=== PATIENT | female | born 1950 | race Caucasian/White ===

== ENCOUNTER 2016-08-26 12:57 | Inpatient (IN) ==
[2016-08-26] MEDS ORDERED: Naloxone 0.4 MG/ML INJ IVP PRN (16:42)
[2016-08-26] MEDS ORDERED: Nitroglycerin 0.4 MG TAB.SUBL SL PRN (16:50)
--- NOTE | 2016-08-26 16:58 | Internal Med History&Physical ---
Date of Encounter: 08/26/16 Time of Encounter: 16:54 Assessment and Plan (1) Chest pain Status: Resolved Chest pain: Admitted as observation. - cardiac diet. -ASA/BB/Statin - Echocardiogram -Pain control with morphine -We will resume home medication -If echocardiogram is normal then please consider stress test - please call cardiology before ordering stress test as they might consider cath. - this is Dr Flynn's patient and patient is alyssia keen to get cardiology on the board. When patient came to the hospital, we did not have detailed information about staying in the [facility]. Qualifiers: Chest pain type: unspecified Qualified Code(s): R07.9 - Chest pain, unspecified (2) Hypertension Status: Chronic Blood pressure is within normal limit at this time and we will resume all home medications Qualifiers: Hypertension type: essential hypertension Qualified Code(s): I10 - Essential (primary) hypertension (3) Coronary artery disease Status: Chronic Patient is known to have coronary artery disease, multiple stents, We will resume all home medication Cardiology to review tomorrow Qualifiers: Coronary Disease-Associated Artery/Lesion type: bypass graft [place] vs. transplanted heart: [place] heart Associated angina: with stable angina Qualified Code(s): I25.708 - Atherosclerosis of coronary artery bypass graft(s) , unspecified, with other forms of angina pectoris (4) DVT prophylaxis Status: Acute Heparin Medical decision making: This patient has [id number] risk of worsening in spite of being on appropriate treatment Internal Medicine - H&P: HPI Chief complaint: chest pain Admitted From: Hospital to Hospital Transfer Plans for Post Hospital Care: Home History of present illness: PCP : [facility]. Cardiology : Dr Flynn Brief PMH : HTN,Dyslipidemia, CAD, Multiple stents. HPI: Patient is ongoing chest pain for the past 3 days. The pain really got worse and last 12 hours. Patient went to [facility] where she was evaluated. Patient was chest pain-free after she was given nitroglycerin. The chest pain is recorded, localized, nonradiating, sharp in nature and gets relieved by nitroglycerin. From [facility] patient was sent to this hospital as patient's swedger is in this hospital. Reason for transfer: In view of her extensive cardiac history and a new onset of anginal chest pain, this patient needs to be observed in a facility where there is a mountain guide available 14/01. Family history: Noncontributory Past Med Surg Social Fam HX - Past Medical History Medical history: cancer, coronary artery disease, diabetes, GERD, hyperlipidemia , hypertension, myocardial infarction, other Psychiatric history: anxiety, bipolar, depression - Past Surgical History Surgical History: cholecystectomy, other - Social History Smoking Status: Former smoker Alcohol use: none Drug use: none - Family History Father Living Status: Hx Family Cardiac Disorders: Yes Internal Medicine - H&P: Meds Aspirin 81 mg PO DAILY 03/12/16 [History] Cholecalciferol (D-3) [Vitamin D] 1,000 unit PO DAILY 03/12/16 [History] Clopidogrel [Plavix] 75 mg PO DAILY 03/12/16 [History] Dicyclomine [Bentyl] 10 mg PO DAILY PRN 03/12/16 [History] Gabapentin [Neurontin] 600 mg PO BID 03/12/16 [History] Lisinopril [Zestril] 20 mg PO DAILY 03/12/16 [History] Metoprolol [Lopressor] 25 mg PO BID 03/12/16 [History] Nitroglycerin [Nitrostat] 0.4 mg SL Q5M PRN 03/12/16 [History] Ondansetron HCl [Zofran] 4 mg PO Q4-6H PRN 03/12/16 [History] Docusate Sodium [Stool Softener] 100 mg PO HS 08/26/16 [History] Duloxetine [Cymbalta] 30 mg PO HS 08/26/16 [History] Famotidine [Pepcid] 20 mg PO BID 08/26/16 [History] Metformin [Glucophage] 500 mg PO BID 08/27/16 [History] Simvastatin [Zocor] 40 mg PO HS 08/27/16 [History] Isosorbide MONOnitrate (24 HR) [Imdur] 30 mg PO DAILY #30 tab.er.24h 08/29/16 [ Rx] Metoprolol [Lopressor] 50 mg PO BID #60 tablet 08/29/16 [Rx] PredniSONE 60 mg PO DAILY #26 tablet 08/29/16 [Rx] Ranolazine [Ranexa] 500 mg PO BID #60 tab.er.12h 08/29/16 [Rx] Allergies amlodipine [From Norvasc] Allergy (Verified 03/12/16 07:22) Hives Amoxicillin Allergy (Verified 03/12/16 07:22) See Comments "pain" latex Allergy (Unverified 08/27/16 08:36) Rash Sulfa (Sulfonamide Antibiotics) Allergy (Verified 03/12/16 07:22) Itching ibuprofen [From Motrin] Adverse Reaction (Intermediate, Verified 08/26/16 20:44) bleeding patient stated cannot take motrin due to having stents placed. hydrocodone [From Vicodin] Adverse Reaction (Unverified 03/12/16 07:22) Gastrointestinal Upset morphine Adverse Reaction (Verified 08/27/16 08:36) Gastrointestinal Upset Oxycodone [From Percocet] Adverse Reaction (Verified 08/27/16 08:36) Gastrointestinal Upset propoxyphene [From Darvocet-N] Adverse Reaction (Unverified 03/12/16 07:22) Gastrointestinal Upset All Systems PM: A 10-system review of systems was performed and is negative for pertinent findings except as documented above in the HPI. - Constitutional Constitutional: no chills, no fever(s), no night sweats - EENT Eyes: no change in vision, no discharge, no pain, no photophobia Ears: no ear discharge, no ear pain, no tinnitus Nose, mouth and throat: no dysphagia, no nasal discharge, no neck pain, no sore throat - Cardiovascular Cardiovascular ROS IM: chest pain, palpitations, no diaphoresis, no dyspnea, no lightheadedness, no syncope - Respiratory Respiratory: no cough, no dyspnea, no wheezing, no excessive phlegm production - Gastrointestinal Gastrointestinal: no abdominal pain, no diarrhea, no hematemesis, no hematochezia, no melena, no nausea, no vomiting - Genitourinary Genitourinary: no change in urinary stream, no dysuria, no flank pain, no hematuria - Musculoskeletal Musculoskeletal ROS IM: no numbness, no tingling - Integumentary Integumentary IM: no rash, no unusual bruising - Neurological Neurological ROS: no confusion, no convulsions, no focal weakness, no numbness, no tingling, no tremor(s) - Hematologic/Lymphatic Hematologic/Lymphatic: no easy bruising - Constitutional Vitals: Temp Pulse Resp BP Pulse Ox 97.9 F 81 16 140/58 94 L 08/26/16 15:18 08/26/16 15:18 08/26/16 15:18 08/26/16 15:18 08/26/16 15:18 General appearance: Present: A&O X 3, pleasant, no acute distress, answers questions appropriately - Head Head exam: Present: atraumatic, normocephalic - Eye Eye exam: Present: PERRL, conjuntiva pink, sclera anicteric Pupils: Present: PERRL - Neck Neck exam general surgery: Present: supple, trachea midline. Absent: lymphadenopathy - Respiratory Respiratory exam: Present: CTAB. Absent: accessory muscle use, rales, rhonchi, wheezes - Cardiovascular Cardiovascular exam: Present: RRR, +S1, +S2. Absent: diastolic murmur, gallop, rubs, systolic murmur - GI/Abdominal GI/Abdominal exam: Present: normal bowel sounds, soft, no peritoneal signs. Absent: distended, tenderness - Extremities Exam Extremities exam: Present: warm, radial pulses palpable and symetrical. Absent : calf tenderness, cyanotic, pedal edema - Neurological Exam Neurological exam: Present: CN II-XII intact, oriented X3, no focal deficits. Absent: pronater drift, facial droop, speech deficit - Skin Skin exam: Present: dry, intact Internal Med - H&P Results - Labs CBC & Chem 7: 08/29/16 06:15 08/29/16 06:15
[2016-08-26] MEDS: *HR* Heparin 5,000 UNIT/ML VIAL SQ SCH (17:33)
[2016-08-26 18:12] LABS: Basophils # 0.1 K/mcL (0.0-0.2); Basophils % 0.6 %; Eosinophils # 0.2 K/mcL (0.0-0.6); Eosinophils % 1.7 %; Hematocrit 36.5 % (35.3-44.9); Hemoglobin 10.7 g/dL (11.5-15.4); Immature Granulocytes % 0.7 % (0-4); Lymphocytes # 1.5 K/mcL (0.6-4.6); Mean Corpuscular HGB Conc 29.3 g/dL (31.6-35.5); Mean Corpuscular Hemoglobin 26.7 pg (28.0-33.3); Mean Platelet Volume 10.9 fL (9.4-12.4); Monocytes # 0.5 K/mcL (0.0-1.3); Monocytes % 5.3 %; Neutrophils # 6.7 K/mcL (1.6-8.9); Platelet Count 274 K/mcL (140-400); Red Blood Count 4.01 M/mcL (3.82-4.97); Red Cell Distribution Width 13.8 % (11.5-14.5); Segmented Neutrophils % 74.7 %
[2016-08-26 18:36] LABS: Alanine Aminotransferase 10 Units/L (0-55); Albumin 3.2 g/dL (3.5-5.0); Alkaline Phosphatase 76 Units/L (38-126); Aspartate Amino Transferase 12 Units/L (5-34); BUN/Creatinine Ratio 19 (6-26); Bilirubin,Total 0.9 mg/dL (0.2-1.2); Blood Urea Nitrogen 14 mg/dL (7-20); Calcium 8.8 mg/dL (8.6-10.8); Carbon Dioxide 21 mEq/L (19-29); Chloride 109 mEq/L (98-109); Globulin 3.2 g/dL (2.4-3.5); Glucose 107 mg/dL (70-99); Osmolality,Calculated 293 (280-300); Potassium 3.8 mEq/L (3.5-4.5); Sodium 141 mEq/L (136-145); Total Protein 6.4 g/dL (6.0-8.3); eGFR For African Americans > 60 (> 60); eGFR For Non-African Americans > 60 (> 60)
[2016-08-26] MEDS ORDERED: Ibuprofen 600 MG TABLET PO PRN (20:30)
[2016-08-26] MEDS: Gabapentin 300 MG CAPSULE PO SCH (20:45)
[2016-08-26] MEDS ORDERED: Celecoxib 100 MG CAPSULE PO PRN (21:34)
[2016-08-26] MEDS ORDERED: Acetaminophen 325 MG TABLET PO ONE (21:36)
[2016-08-27 01:25] LABS: Chol/HDL Ratio 5.7 (0-4.9); Magnesium 1.9 mg/dL (1.6-2.6); Phosphorous 4.6 mg/dL (2.3-4.7)
[2016-08-27] MEDS: *HR* Heparin 5,000 UNIT/ML VIAL SQ SCH ×2 (06:14→16:52)
--- NOTE | 2016-08-27 10:08 | Cardiology Consult Note ---
Date of Encounter: 08/27/16 Time of Encounter: 10:48 Assessment and Plan (1) Chest pain Current Visit: Yes Status: Acute Atypical chest pain. In the setting of hypertensive urgency. Reports b/p 220-230 systolic on arrival to [facility]. Also c/o chest pain 08/14/16 after cyst removed from lumbar spine. Seen by cardiology at [facility]. Out-pt stress test recommended at that time. Troponin negative x 3. EKG shows SR with RBBB. Extensive history of CAD. Recommended pharmacologic stress test for further evaluation. NPO after midnight. She will be a 2 day stress test d/t weight. Pt agrees with plan. Qualifiers: Chest pain type: unspecified Qualified Code(s): R07.9 - Chest pain, unspecified (2) Coronary artery disease Current Visit: Yes Status: Acute S/p NV x5, CABG, and multiple stents. Last [facility] in 2012- SHILPA x2 to SVG-OM, LAD patent, SVG-PDA occluded with 100% pRCA stenosis. TTE 2014- normal EF, moderate diastolic dysfunction. Continue asa, statin, and bb. Pt states she can restart plavix today according to her spine surgeon. Qualifiers: Coronary Disease-Associated Artery/Lesion type: unspecified vessel or lesion type [place] vs. transplanted heart: [place] heart Associated angina: with stable angina Qualified Code(s): I25.118 - Atherosclerotic heart disease of [place] coronary artery with other forms of angina pectoris (3) Hypertension Current Visit: Yes Status: Acute Blood pressure improved. Reports elevated blood pressures at [facility]. 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 C/o intermittent severe leg pain since surgery, Kenny intact with redness and significant amount of edema around kenny. Primary team notified. Discussion w patient/family: The assessment and plan as outlined above was discussed with the patient and/or family members who expressed understanding and agreement. All questions were answered. Thank you for involving us in the care of your patient. Please call with any questions. History of Present Illness Consult date: 08/27/16 Requesting physician: Andrea Garibay Consult reason: Chest pain Chief complaint: Chest pain, left leg pain History of present illness: Ms. Longoria is a 66 year old female who presented with sharp, stabbing, midsternal chest pain that was not relieved with 3 SL NTG at home. She c/o severe pain radiating down her leg prior to developing chest pain. She is s/p 8 mm cyst removal from her lumbar spine on 08/13/16. Since that time she c/o intermittent "sciatic nerve" pain. She c/o 10/10 pain in her leg that lead to her having chest pain. Her blood pressure was 220-230 systolic on arrival to [facility]. She states she was given medication for her blood pressure and pain medication and her chest pain resolved. She reports being seen by cardiology after her back surgery d/t chest pain and EKG changes. She was started back on her baby aspirin and recommended to follow with her screening specialist for a stress test. Past medical history includes NV x 5, 2V CABG 2009, Multiple PCI, hypertension, and breast cancer s/p bilateral mastectomy. Past Med Surg Social Fam HX - Past Medical History Medical history: cancer, coronary artery disease, diabetes, GERD, hyperlipidemia , hypertension, myocardial infarction, other Psychiatric history: anxiety, bipolar, depression - Past Surgical History Surgical History: cholecystectomy, other - Social History Smoking Status: Former smoker Alcohol use: none Drug use: none - Family History Father Living Status: Hx Family Cardiac Disorders: Yes Medications and Allergies Aspirin 81 mg PO DAILY 03/12/16 [History] Celecoxib [Celebrex] 100 mg PO BID PRN 03/12/16 [History] Cholecalciferol (D-3) [Vitamin D] 1,000 unit PO DAILY 03/12/16 [History] Clopidogrel [Plavix] 75 mg PO DAILY 03/12/16 [History] Dicyclomine [Bentyl] 10 mg PO DAILY PRN 03/12/16 [History] Gabapentin [Neurontin] 600 mg PO BID 03/12/16 [History] Isosorbide MONOnitrate (24 HR) [Imdur] 15 mg PO DAILY 03/12/16 [History] Lisinopril [Zestril] 20 mg PO DAILY 03/12/16 [History] Metoprolol [Lopressor] 25 mg PO BID 03/12/16 [History] Nitroglycerin [Nitrostat] 0.4 mg SL Q5M PRN 03/12/16 [History] Ondansetron HCl [Zofran] 4 mg PO Q4-6H PRN 03/12/16 [History] Docusate Sodium [Stool Softener] 100 mg PO HS 08/26/16 [History] Duloxetine [Cymbalta] 30 mg PO HS 08/26/16 [History] Famotidine [Pepcid] 20 mg PO BID 08/26/16 [History] Metformin [Glucophage] 500 mg PO BID 08/27/16 [History] Allergies amlodipine [From Norvasc] Allergy (Verified 03/12/16 07:22) Hives Amoxicillin Allergy (Verified 03/12/16 07:22) See Comments "pain" latex Allergy (Unverified 08/27/16 08:36) Rash Sulfa (Sulfonamide Antibiotics) Allergy (Verified 03/12/16 07:22) Itching ibuprofen [From Motrin] Adverse Reaction (Intermediate, Verified 08/26/16 20:44) bleeding patient stated cannot take motrin due to having stents placed. hydrocodone [From Vicodin] Adverse Reaction (Unverified 03/12/16 07:22) Gastrointestinal Upset morphine Adverse Reaction (Verified 08/27/16 08:36) Gastrointestinal Upset Oxycodone [From Percocet] Adverse Reaction (Verified 08/27/16 08:36) Gastrointestinal Upset propoxyphene [From Darvocet-N] Adverse Reaction (Unverified 03/12/16 07:22) Gastrointestinal Upset All Systems Review: A 10-system review of systems was performed and is negative for pertinent findings except as documented above in the HPI. Physical Examination Vital Signs, Last 4 Hours Temp Pulse Resp BP Pulse Ox 08/27/16 07:39 98.0 F 73 20 158/76 94 L General: Conversant, No Apparent Distress, Other (Morbidly obese female) HEENT: Atraumatic, Normocephaly, Mucus Membranes Moist Neck: No JVD, Normal carotid pulses Cardiac: Reg Rate and Rhythm, Normal S1 and S2, No Murmur Lungs: Normal Breath Sounds, No Wheeze, Rales, Rhonchi Neuro: Alert and responsive, No focal deficits noted Abdomen: Soft, Non-Tender Skin: No rashes noted on visualized skin, Other (kenny intact in mid lower back, Redness and edema noted around kenny. ) Musculoskeletal: No Chest Wall Tenderness Extremities: No Clubbing, No Cyanosis, No Edema, Normal Pulses Results 08/26/16 17:55 08/26/16 17:55 Lab Results 08/26/16 08/26/16 03 17:55 17:55 17:55 WBC 8.9 Hgb 10.7 L Hct 36.5 Plt Count 274 Sodium 141 Potassium 3.8 Chloride 109 Carbon Dioxide 21 BUN 14 Creatinine 0.75 Glucose 107 H Calcium 8.8 Magnesium Total Bilirubin 0.9 AST 12 ALT 10 Alkaline Phosphatase 76 Troponin I 0.03 08/27/16 08/27/16 08/27/16 00:24 00:24 06:36 WBC Hgb Hct Plt Count Sodium Potassium Chloride Carbon Dioxide BUN Creatinine Glucose Calcium Magnesium 1.9 Total Bilirubin AST ALT Alkaline Phosphatase Troponin I 0.03 0.02 - Imaging and Cardiology Echo: report reviewed (11/2014-LVEF 60%.Normal left ventricular size and systolic function.There is evidence of moderate diastolic dysfunction of the left ventricle.Moderately enlarged left atrial size.RA no well seen.RV is not well seen, grossly there is normal function.Sclerotic aortic valve.Mild tricuspid regurgitation.Estimated RVSP was 30 mmHg.No pulmonary hypertension.The IVC is not dilated.) - EKG Interpretation EKG results cardiology: personally reviewed (SR with RBDENISE) Consult Discharge Plan - Plan Referrals: Laura Nunes, [employer] [Primary Care Provider] -
--- NOTE | 2016-08-27 14:18 | Discharge Summary ---
Date of Encounter: 08/27/16 Time of Encounter: 13:00 - Discharge Diagnosis (1) Chest pain Priority: Primary Status: Acute Comments: Patient currently denies chest pain or shortness of breath above her norm. Cardiology is on board, plan is for echocardiogram in 2 parts stress test to begin tomorrow. Qualifiers: Chest pain type: unspecified Qualified Code(s): R07.9 - Chest pain, unspecified (2) S/P lumbar spinal fusion Priority: Secondary Status: Chronic Comments: Patient is seeing Dr. Sheikh here at [facility] attempted to perform a spinal fusion on 03/12/16 however she states she was unable to do so due to her body habitus. She later went to [place] and had the procedure done on 08/13/16. She states she is due to have the kenny taken out today. She has noticed a hard and not to the right side of her incision wound. CT of lumbar spine pending. Area more consistent with induration and fluctuance. Otherwise, surgical scarring appears well approximated. No signs of acute infection noted. Awaiting CT results. Patient with severe lumbar radiculopathy and complains of severe pain and burning down her left buttock and down her left posterior thigh. Consistent with sciatica vs radiculopathy. Patient due to her allergies is unable to take any other medication besides IV Dilaudid. We will treat with pain medication, nerve medication, and steroids and assess her response. We will also bring PT on board for stretching exercises. (3) Sciatica of left side Priority: Primary Status: Acute (4) Lumbar radiculopathy Priority: Primary Status: Acute (5) Coronary artery disease Priority: Secondary Status: Chronic Qualifiers: Coronary Disease-Associated Artery/Lesion type: bypass graft [place] vs. transplanted heart: [place] heart Associated angina: with stable angina Qualified Code(s): I25.708 - Atherosclerosis of coronary artery bypass graft(s) , unspecified, with other forms of angina pectoris (6) DVT prophylaxis Priority: Primary Status: Acute Comments: Subcutaneous heparin (7) Hypertension Priority: Secondary Status: Chronic Comments: Borderline hypertensive however the patient is in severe pain, will address her pain and monitor. Will adjust medications as indicated. Qualifiers: Hypertension type: essential hypertension Qualified Code(s): I10 - Essential (primary) hypertension (8) Morbid obesity with BMI of 50.0-59.9, adult Priority: Secondary Status: Chronic - Discharge Medications Home Medications: Aspirin 81 mg PO DAILY 03/12/16 [History] Cholecalciferol (D-3) [Vitamin D] 1,000 unit PO DAILY 03/12/16 [History] Clopidogrel [Plavix] 75 mg PO DAILY 03/12/16 [History] Dicyclomine [Bentyl] 10 mg PO DAILY PRN 03/12/16 [History] Gabapentin [Neurontin] 600 mg PO BID 03/12/16 [History] Isosorbide MONOnitrate (24 HR) [Imdur] 15 mg PO DAILY 03/12/16 [History] Lisinopril [Zestril] 20 mg PO DAILY 03/12/16 [History] Metoprolol [Lopressor] 25 mg PO BID 03/12/16 [History] Nitroglycerin [Nitrostat] 0.4 mg SL Q5M PRN 03/12/16 [History] Ondansetron HCl [Zofran] 4 mg PO Q4-6H PRN 03/12/16 [History] Docusate Sodium [Stool Softener] 100 mg PO HS 08/26/16 [History] Duloxetine [Cymbalta] 30 mg PO HS 08/26/16 [History] Famotidine [Pepcid] 20 mg PO BID 08/26/16 [History] Metformin [Glucophage] 500 mg PO BID 08/27/16 [History] Allergies/Adverse Reactions: Allergies amlodipine [From Norvasc] Allergy (Verified 03/12/16 07:22) Hives Amoxicillin Allergy (Verified 03/12/16 07:22) See Comments "pain" latex Allergy (Unverified 08/27/16 08:36) Rash Sulfa (Sulfonamide Antibiotics) Allergy (Verified 03/12/16 07:22) Itching ibuprofen [From Motrin] Adverse Reaction (Intermediate, Verified 08/26/16 20:44) bleeding patient stated cannot take motrin due to having stents placed. hydrocodone [From Vicodin] Adverse Reaction (Unverified 03/12/16 07:22) Gastrointestinal Upset morphine Adverse Reaction (Verified 08/27/16 08:36) Gastrointestinal Upset Oxycodone [From Percocet] Adverse Reaction (Verified 08/27/16 08:36) Gastrointestinal Upset propoxyphene [From Darvocet-N] Adverse Reaction (Unverified 03/12/16 07:22) Gastrointestinal Upset Procedures/tests Complete & Pending: Procedures Performed prior 72 hours Category Date Time Status CT lumbar spine wo con [CT] Routine Cat Scan 08/27/16 11:45 Taken NM krista perf SPECT multi [NM] Routine Exams 08/27/16 09:20 Ordered EV echocardiogram Routine Y 08/27/16 09:21 Ordered Date of admission: 08/26/16 14:49 Primary care physician: Laura Nunes CNP Consults: 08/27/16 09:17 Consult to Cardiology [CONS] Routine Comment: Consulting Provider: Cardiology Anjelica Reason for Consult: CP- pt of Dr Flynn. Please eval and advise. Call Completed: No Discharging clinician: Soo Agosto Anticipated date of discharge: 08/27/16 - Discharge Instructions Follow Up With: Laura Nunes CNP [Primary Care Provider] - Hospital course: Ms. Longoria is a 66 year old female - Time Spent with Patient Total time spent providing and/or coordinating discharge services: - Constitutional Vitals: Temp Pulse Resp BP Pulse Ox 97.7 F 75 18 156/77 96 08/27/16 11:19 08/27/16 11:19 08/27/16 11:19 08/27/16 11:19 08/27/16 11:19 General appearance: Present: A&O X 3, pleasant, no acute distress, answers questions appropriately
[2016-08-27] MEDS: Isosorbide MONOnitrate (24 HR) 30 MG TAB.ER.24H PO SCH (14:23)
[2016-08-27] MEDS: Aspirin 81 MG TAB.CHEW PO SCH (14:23)
[2016-08-27] MEDS: Gabapentin 300 MG CAPSULE PO SCH ×3 (14:24→19:52)
[2016-08-27] MEDS: Famotidine 20 MG TABLET PO SCH ×2 (14:24→19:52)
--- NOTE | 2016-08-27 14:27 | Internal Med Progress Note ---
Date of Encounter: 08/27/16 Time of Encounter: 13:00 - Assessment and plan (1) Chest pain Current Visit: Yes Status: Acute Assessment and plan: Patient currently denies chest pain or shortness of breath above her norm. Cardiology is on board, plan is for echocardiogram in 2 parts stress test to begin tomorrow. Qualifiers: Chest pain type: unspecified Qualified Code(s): R07.9 - Chest pain, unspecified (2) S/P lumbar spinal fusion Current Visit: Yes Status: Chronic Assessment and plan: Patient has seen Dr. Sheikh here at [facility] attempted to perform a spinal fusion on 03/12/16 however she states she was unable to do so due to her body habitus. She later went to [place] and had the procedure done on 08/13/16. She states she is due to have the kenny taken out today. She has noticed a hard and not to the right side of her incision wound. CT of lumbar spine pending. Area more consistent with induration and fluctuance. Otherwise, surgical scarring appears well approximated. No signs of acute infection noted. Awaiting CT results. Patient with severe lumbar radiculopathy and complains of severe pain and burning down her left buttock and down her left posterior thigh. Consistent with sciatica vs radiculopathy. Patient due to her allergies is unable to take any other medication besides IV Dilaudid. We will treat with pain medication, nerve medication, and steroids and assess her response. We will also bring PT on board for stretching exercises. (3) Sciatica of left side Current Visit: Yes Status: Acute (4) Lumbar radiculopathy Current Visit: Yes Status: Acute (5) Coronary artery disease Current Visit: Yes Status: Chronic Qualifiers: Coronary Disease-Associated Artery/Lesion type: bypass graft [place] vs. transplanted heart: [place] heart Associated angina: with stable angina Qualified Code(s): I25.708 - Atherosclerosis of coronary artery bypass graft(s) , unspecified, with other forms of angina pectoris (6) DVT prophylaxis Current Visit: Yes Status: Acute Assessment and plan: Subcutaneous heparin (7) Hypertension Current Visit: Yes Status: Chronic Assessment and plan: Borderline hypertensive however the patient is in severe pain, will address her pain and monitor. Will adjust medications as indicated. Qualifiers: Hypertension type: essential hypertension Qualified Code(s): I10 - Essential (primary) hypertension (8) Morbid obesity with BMI of 50.0-59.9, adult Current Visit: Yes Status: Chronic - Subjective Interval history: Patient seen and examined. On examination, patient is lying on her side in bed. Patient complaining of severe burning and pain down her left buttock and into her left posterior leg. She is complaining of severe muscle spasms in that area. - Constitutional Vitals: Temp Pulse Resp BP Pulse Ox 97.7 F 75 18 156/77 96 08/27/16 11:19 08/27/16 11:19 08/27/16 11:19 08/27/16 11:19 08/27/16 11:19 General appearance: Present: A&O X 3, morbidly obese, pleasant, no acute distress, answers questions appropriately - Head Head exam: Present: atraumatic, normocephalic - Eye Eye exam: Present: PERRL, conjuntiva pink, sclera anicteric Pupils: Present: PERRL - Neck Neck exam general surgery: Present: supple, trachea midline. Absent: lymphadenopathy - Respiratory Respiratory exam: Present: decreased breath sounds. Absent: accessory muscle use, rales, respiratory distress, rhonchi, wheezes - Cardiovascular Cardiovascular exam: Present: distant heart sounds, RRR, +S1, +S2. Absent: diastolic murmur, gallop, rubs, systolic murmur - GI/Abdominal GI/Abdominal exam: Present: distended, normal bowel sounds, soft, no peritoneal signs. Absent: tenderness - Extremities Exam Extremities exam: Present: warm, radial pulses palpable and symetrical. Absent : calf tenderness, cyanotic, pedal edema - Expanded Lower Extremities Exam Upper Leg exam: Present: tenderness. Absent: full ROM - Incison Incision: Present: intact, approximated. Absent: draining Comments: induration to right side of incision - Neurological Exam Neurological exam: Present: alert, CN II-XII intact, oriented X3, no focal deficits, strengths equal and symetr throughout. Absent: pronater drift, facial droop, speech deficit - Skin Skin exam: Present: dry, intact, pallor, warm Internal Medicine: Result - Labs CBC & Chem 7: 08/26/16 17:55 08/26/16 17:55 Labs: Short CBC 08/26/16 Range/Units 17:55 WBC 8.9 (4.3-11.1) K/mcL Hgb 10.7 L (11.5-15.4) g/dL Hct 36.5 (35.3-44.9) % Plt Count 274 (140-400) K/mcL Neutrophils # 6.7 (1.6-8.9) K/mcL BMP 08/26/16 17:55 Sodium 141 Potassium 3.8 Chloride 109 Carbon Dioxide 21 BUN 14 Creatinine 0.75 Glucose 107 H Calcium 8.8 Cardiac Enzymes 08/26/16 08/27/16 08/27/16 Range/Units 17:55 00:24 06:36 Troponin I 0.03 0.03 0.02 (0-0.03) ng/mL Liver Function 08/26/16 Range/Units 17:55 Total Bilirubin 0.9 (0.2-1.2) mg/dL AST 12 (5-34) Units/L ALT 10 (0-55) Units/L Alkaline Phosphatase 76 (38-126) Units/L Albumin 3.2 L (3.5-5.0) g/dL Consult Discharge Plan - Plan Referrals: Laura Nunes, [employer] [Primary Care Provider] -
[2016-08-27] MEDS: Acetaminophen 325 MG TABLET PO PRN ×2 (14:29→22:28)
[2016-08-27] MEDS ORDERED: *HR* HYDROmorphone (PF) 1 MG/ML SYRINGE IVP PRN (14:31)
[2016-08-27] MEDS ORDERED: *HR* Promethazine 25 MG/ML VIAL IVP PRN (14:31)
[2016-08-27] MEDS ORDERED: Ondansetron 4 MG/2 ML VIAL IVP PRN (14:31)
[2016-08-27] MEDS: predniSONE 20 MG TABLET PO SCH (16:54)
[2016-08-28] MEDS: *HR* Heparin 5,000 UNIT/ML VIAL SQ SCH ×2 (04:47→17:29)
[2016-08-28 06:54] LABS: Basophils % 0.2 %; Hematocrit 33.2 % (35.3-44.9); Hemoglobin 10.5 g/dL (11.5-15.4); Immature Granulocytes % 0.6 % (0-4); Lymphocytes # 0.7 K/mcL (0.6-4.6); Lymphocytes % 7.8 %; Mean Corpuscular HGB Conc 31.6 g/dL (31.6-35.5); Mean Corpuscular Hemoglobin 27.4 pg (28.0-33.3); Mean Corpuscular Volume 86.7 fL (83.0-100.0); Mean Platelet Volume 11.2 fL (9.4-12.4); Monocytes # 0.1 K/mcL (0.0-1.3); Monocytes % 1.6 %; Neutrophils # 7.9 K/mcL (1.6-8.9); Platelet Count 306 K/mcL (140-400); Red Blood Count 3.83 M/mcL (3.82-4.97); Red Cell Distribution Width 13.5 % (11.5-14.5); Segmented Neutrophils % 89.8 %
[2016-08-28] MEDS ORDERED: Regadenoson 0.4 MG/5 ML SYRINGE IVP ONE (07:00)
[2016-08-28 07:11] LABS: BUN/Creatinine Ratio 19 (6-26); Blood Urea Nitrogen 14 mg/dL (7-20); Calcium 8.8 mg/dL (8.6-10.8); Carbon Dioxide 24 mEq/L (19-29); Chloride 105 mEq/L (98-109); Glucose 157 mg/dL (70-99); Osmolality,Calculated 290 (280-300); Potassium 4.3 mEq/L (3.5-4.5); Sodium 138 mEq/L (136-145); eGFR For African Americans > 60 (> 60); eGFR For Non-African Americans > 60 (> 60)
--- NOTE | 2016-08-28 08:45 | Cardiology Progress Note ---
Date of Encounter: 08/28/16 Time of Encounter: 07:40 Assessment and Plan (1) Chest pain Current Visit: Yes Status: Acute Recurrent chest pain. In the setting of hypertensive urgency. Reports b/p 220-230 systolic on arrival to [facility]. Also c/o chest pain 08/14/16 after cyst removed from lumbar spine. Seen by cardiology at [facility]. Out-pt stress test recommended at that time. Troponin negative x 3. EKG shows SR with RBBB. Extensive history of CAD. Recommended pharmacologic stress test for further evaluation. First part of 2-day stress test completed this morning. TTE pending. Continue asa, statin, plavix, and bb. Qualifiers: Chest pain type: unspecified Qualified Code(s): R07.9 - Chest pain, unspecified (2) Coronary artery disease Current Visit: Yes Status: Chronic S/p [place] x5, CABG 2010, and multiple stents. Last [facility] in 2012- SHILPA x2 to SVG-OM, LAD patent, SVG-PDA occluded with 100% pRCA stenosis. TTE 2014- normal EF, moderate diastolic dysfunction. Continue asa and bb. Plavix restarted. Qualifiers: Coronary Disease-Associated Artery/Lesion type: bypass graft [place] vs. transplanted heart: [place] heart Associated angina: with stable angina Qualified Code(s): I25.708 - Atherosclerosis of coronary artery bypass graft(s) , unspecified, with other forms of angina pectoris (3) Hypertension Current Visit: Yes Status: Chronic Blood pressure elevated this am d/t holding meds for test. Adjust as needed once re-evaluated. Qualifiers: Hypertension type: essential hypertension Qualified Code(s): I10 - Essential (primary) hypertension Discussion w patient/family: The assessment and plan as outlined above was discussed with the patient and/or family members who expressed understanding and agreement. All questions were answered. Thank you for involving us in the care of your patient. Please call with any questions. Subjective Principal diagnosis: chest pain, sciatica pain. Interval history: Mrs. Longoria seen in the stress lab. She is a two day stress test. SHe denies recurrent chest pain overnight. She did develop chest pain after lexiscan. Chest pain resolved with one SL NTG. Back pain and leg pain significantly improved after starting steroid. Objective Vital Signs Temp Pulse Resp BP Pulse Ox 08/28/16 03:33 97.5 F L 71 16 177/69 96 08/27/16 23:03 98.5 F 70 15 166/76 95 08/27/16 19:35 99.0 F 56 15 156/58 96 08/27/16 16:48 97.9 F 68 18 116/60 95 08/27/16 11:19 97.7 F 75 18 156/77 96 Intake and Output 08/27/16 08/28/16 08/28/16 23:59 07:59 15:59 Intake Total 600 / 600 Output Total 300 / 300 Balance 300 / 300 Intake: Oral 600 / 600 Output: Urine 300 / 300 Other: Weight 141.974 kg Patient Weight 08/28/16 23:59 Weight 141.974 kg General: Conversant, No Apparent Distress, Other (Obese female) HEENT: Atraumatic, Normocephaly, Mucus Membranes Moist Neck: No JVD, Normal carotid pulses Cardiac: Reg Rate and Rhythm, Normal S1 and S2, No Murmur Lungs: Normal Breath Sounds, No Wheeze, Rales, Rhonchi Neuro: Alert and responsive, No focal deficits noted Abdomen: Soft, Non-Tender Skin: No rashes noted on visualized skin, Other (kenny intact on back. Redness around kenny. Edema improved. ) Musculoskeletal: No Chest Wall Tenderness Extremities: No Clubbing, No Cyanosis, No Edema, Normal Pulses Results 08/28/16 05:28 08/28/16 05:28 Lab Results 08/28/16 08/28/16 05:28 05:28 WBC 8.8 Hgb 10.5 L Hct 33.2 L Plt Count 306 Sodium 138 Potassium 4.3 Chloride 105 Carbon Dioxide 24 BUN 14 Creatinine 0.75 Glucose 157 H Calcium 8.8 - Imaging and Cardiology Stress Test: pending - EKG Interpretation EKG results cardiology: other (Telemetry shows NSR with occasional PAC. Rare PVC. No ventricular arrythmias seen.) Consult Discharge Plan - Plan Referrals: Laura Nunes CNP [Primary Care Provider] - 09/03/16 1:00 pm
[2016-08-28] MEDS: Aspirin 81 MG TAB.CHEW PO SCH (09:25)
[2016-08-28] MEDS: Isosorbide MONOnitrate (24 HR) 30 MG TAB.ER.24H PO SCH (09:25)
[2016-08-28] MEDS: predniSONE 20 MG TABLET PO SCH (09:26)
[2016-08-28] MEDS: Famotidine 20 MG TABLET PO SCH ×2 (09:26→20:10)
[2016-08-28] MEDS: Gabapentin 300 MG CAPSULE PO SCH ×3 (09:26→20:11)
--- NOTE | 2016-08-28 10:09 | ECHO - Doppler Report ---
Echocardiogram Name: Amelia Longoria Date of Study: 08/27/2016 Date: 1950 Ht: 64.0 in Medical Record#: [id number] Age: 66 Wt: 314.0 lb Gender: Female BSA: 2.37 Order #: [id number] Location: [facility] Room #: [id number] Reading Physician: Krysta Bee DO Primer Boxer: Geeta Vergara RDCS Ordering Physician: Soo Agosto CNP Primary Physician: Laura Nunes CNP Indications: Chest pain, Fatigue Impressions: LVEF 55%. Normal left ventricular size and systolic function. Mild concentric hypertrophy of the left ventricle. There is evidence of moderate diastolic dysfunction of the left ventricle. Normal right ventricular size and function. Sclerotic aortic valve. No pulmonary hypertension. Left Ventricular Wall Motion: Rest Echo Findings All wall segments showed normal motion. Findings: Study Quality * Technically sub-optimal due to body habitus. ECG Findings * Normal sinus rhythm. Left Atrium * Mildly dilated left atrium. Mitral Valve * Normal mitral valve structure. * Mild mitral annular calcification * No mitral stenosis. * Trace mitral regurgitation. Aortic Valve * No aortic regurgitation. * Aortic valve not well visualized. * No aortic stenosis. * Sclerotic aortic valve. Tricuspid Valve * Tricuspid valve not well visualized. * No tricuspid regurgitation. * Estimated RA pressure is 3 mmHg. * Estimated RVSP is 24 mmHg. * No pulmonary hypertension. Pulmonic Valve * Pulmonic valve is not well visualized. * No pulmonic stenosis. * No pulmonic regurgitation. Pulmonary Artery * Pulmonary artery not well visualized. Right Ventricle * Normal right ventricular structure and function. Right Atrium * Normal right atrial size. Left Ventricle * LVEF 55%. * Mild concentric left ventricular hypertrophy. * Moderate left ventricular diastolic dysfunction. Interatrial Septum * No evidence of PFO by color Doppler. IVC * The IVC is not dilated. Pericardium * There is no pericardial effusion present. Aorta * Normally sized aortic root. History Hypertension Diabetes Hypercholesteremia Family History of CAD History of CAD/PTCA Myocardial Infarction Coronary Artery Bypass Graft 12/03/2014 a Previous Echo was performed. Measurements: BP: 156/ 58 2D Normal Values IVSd: 1.31 cm 0.6 - 1.0 cm LVIDd: 4.40 cm 3.7 - 5.6 cm LVPWd: 1.30 cm 0.6 - 1.1 cm LVIDs: 2.80 cm 1.5 - 3.6 cm AO: 2.90 cm < 4.0 cm LA: 3.90 cm 2.0 - 4.0cm %FS: 45.20 cm >25 % LVOT Diam: 2.00 cm LA volume: 53 Mitral Valve Peak E:1.20 m/sec Peak A:1.12 m/sec E/A Ratio:1.1 Peak E' Lat Juni:9.57 cm/s Peak E' Med Juni:6.53 cm/s E/E' Lat Ratio:12.5 E/E' Med Ratio:18.4 LVOT Peak Juni:1.14 m/sec Mean Juni:.79 m/sec Peak Grad:5.00 mmHg Mean Grad:2.67 mmHg Aortic Valve Peak Juni:2.19 m/sec Mean Juni:1.35 m/sec Peak Grad:19.00 mmHg Mean Grad:8.33 mmHg Valve Area:2.11 cm2 Tricuspid Valve TV Regurg Peak Grad: 21.00mmHg TV Regurg Peak Juni: 2.30m/sec Updated by Krysta Bee on 08/28/2016 10:01:39 AM electronically signed on 08/28/2016 10:02:05 AM with status of Final Wall Motion Cho: 1=Normal, 2=Hypokinesis, 3=Akinesis, 4=Dyskinesis, 5=Aneurysmal, 6=Hyperkinetic, X=Not Visualized (Blank)=Missing
[2016-08-28] MEDS: Acetaminophen 325 MG TABLET PO PRN ×2 (11:12→20:10)
--- NOTE | 2016-08-28 12:40 | Event Note ---
Date of Encounter: 08/28/16 Time of Encounter: 12:30 Spoke with Soo Agosto who is taking care of the patient on the hospitalist service. I would recommend the patient follow up with her spine surgeon in [place] for removal of kenny. No urgency or indication to remove kenny during this visit. If the patient is persistent about removal of kenny during this visit, I would recommend consultation with Dr. Sheikh for review of CT and recommendations.
--- NOTE | 2016-08-28 15:04 | Internal Med Progress Note ---
Date of Encounter: 08/28/16 Time of Encounter: 14:00 - Assessment and plan (1) Chest pain Current Visit: Yes Status: Acute Assessment and plan: Patient currently denies chest pain or shortness of breath above her norm. Cardiology is on board, plan is for 2 part stress test with second part tomorrow. Echocardiogram unremarkable with ejection fraction 55% and moderate diastolic dysfunction. Patient's euvolemic on examination. Possible discharge if negative and pending clinical outcomes tomorrow. Echocardiogram impressions: LVEF 55%. Normal left ventricular size and systolic function. Mild concentric hypertrophy of the left ventricle. There is evidence of moderate diastolic dysfunction of the left ventricle. Normal right ventricular size and function. Sclerotic aortic valve. No pulmonary hypertension. Qualifiers: Chest pain type: unspecified Qualified Code(s): R07.9 - Chest pain, unspecified (2) S/P lumbar spinal fusion Current Visit: Yes Status: Chronic Assessment and plan: Per Dr Hudson at [facility] on 08/13/16. Patient stating she had an appointment with her primary care provider Laura Nunes whom I have emailed for improved continuity. Ideally, would prefer patient go back to her original surgeon however she states that she has been told that she is not supposed to drive all the way back up to [place] to have the kenny removed, will verify with her primary care provider. Surgery onboard. 08/27/[address] Sheikh here at [facility] attempted to perform a spinal fusion on 03/12/16 however she states she was unable to do so due to her body habitus. She later went to [facility] and had the procedure done on 08/13/16. She states she is due to have the kenny taken out today. She has noticed a hard and not to the right side of her incision wound. CT of lumbar spine pending. Area more consistent with induration and fluctuance. Otherwise, surgical scarring appears well approximated. No signs of acute infection noted. Awaiting CT results. Patient with severe lumbar radiculopathy and complains of severe pain and burning down her left buttock and down her left posterior thigh. Consistent with sciatica vs radiculopathy. Patient due to her allergies is unable to take any other medication besides IV Dilaudid. We will treat with pain medication, nerve medication, and steroids and assess her response. We will also bring PT on board for stretching exercises. (3) Sciatica of left side Current Visit: Yes Status: Acute Assessment and plan: much improved with steroids- has not required any pain medication besides tylenol today. (4) Lumbar radiculopathy Current Visit: Yes Status: Acute (5) Coronary artery disease Current Visit: Yes Status: Chronic Qualifiers: Coronary Disease-Associated Artery/Lesion type: bypass graft [place] vs. transplanted heart: [place] heart Associated angina: with stable angina Qualified Code(s): I25.708 - Atherosclerosis of coronary artery bypass graft(s) , unspecified, with other forms of angina pectoris (6) DVT prophylaxis Current Visit: Yes Status: Acute Assessment and plan: Subcutaneous heparin (7) Hypertension Current Visit: Yes Status: Chronic Assessment and plan: Borderline hypertensive at times but normotensive at this time will continue to address her pain and monitor. Will adjust medications as indicated. Qualifiers: Hypertension type: essential hypertension Qualified Code(s): I10 - Essential (primary) hypertension (8) Morbid obesity with BMI of 50.0-59.9, adult Current Visit: Yes Status: Chronic - Subjective Interval history: Patient seen and examined. On examination, patient is sitting upright on the side of her bed. Patient is alert and interactive and states that last night was the best night's sleep she has had in a while. She states that approximately 2 hours after taking her steroids that her pain abated greatly. Patient stating she is feeling under percent better today. She is endorsing a normal appetite. - Constitutional Vitals: Temp Pulse Resp BP Pulse Ox 98.0 F 73 16 149/71 96 08/28/16 10:55 08/28/16 10:55 08/28/16 10:55 08/28/16 10:55 08/28/16 10:55 General appearance: Present: A&O X 3, morbidly obese, pleasant, no acute distress, answers questions appropriately - Head Head exam: Present: atraumatic, normocephalic - Eye Eye exam: Present: PERRL, conjuntiva pink, sclera anicteric Pupils: Present: PERRL - Neck Neck exam general surgery: Present: supple, trachea midline. Absent: lymphadenopathy - Respiratory Respiratory exam: Present: CTAB. Absent: accessory muscle use, rales, respiratory distress, rhonchi, wheezes - Cardiovascular Cardiovascular exam: Present: RRR, +S1, +S2. Absent: diastolic murmur, gallop, rubs, systolic murmur - GI/Abdominal GI/Abdominal exam: Present: normal bowel sounds, soft, no peritoneal signs. Absent: distended, tenderness - Extremities Exam Extremities exam: Present: warm, radial pulses palpable and symetrical. Absent : calf tenderness, cyanotic, pedal edema - Incison Incision: Present: clean and dry, erythema (mild), approximated. Absent: draining - Back Exam Back exam: Present: vertebral tenderness (incision) - Neurological Exam Neurological exam: Present: alert, CN II-XII intact, oriented X3, no focal deficits, strengths equal and symetr throughout. Absent: pronater drift, facial droop, speech deficit - Skin Skin exam: Present: dry, intact, normal color, warm Internal Medicine: Result - Labs CBC & Chem 7: 08/28/16 05:28 08/28/16 05:28 Labs: Short CBC 08/28/16 Range/Units 05:28 WBC 8.8 (4.3-11.1) K/mcL Hgb 10.5 L (11.5-15.4) g/dL Hct 33.2 L (35.3-44.9) % Plt Count 306 (140-400) K/mcL Neutrophils # 7.9 (1.6-8.9) K/mcL BMP 08/28/16 05:28 Sodium 138 Potassium 4.3 Chloride 105 Carbon Dioxide 24 BUN 14 Creatinine 0.75 Glucose 157 H Calcium 8.8 - Impressions Impressions Lumbar Spine CT 08/27/16 11:45 IMPRESSION: 1. Postsurgical changes are noted from an anterior and posterior L4-S1 fusion without evidence of instrumentation loosening or failure. Fluid is noted in the L4-L5 laminectomy beds, likely related to a postoperative seroma, however, superimposed infection cannot entirely be excluded. If there is strong clinical concern, an MRI of the lumbar spine without and with intravenous contrast could be performed for further evaluation. 2. Mild central spinal canal narrowing at L1-L2. 3. No evidence of an acute fracture. 4. Atherosclerotic disease. 5. 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 D/ / 08/27/2016 14:48:31 Pedro Luque MD / vinay Interpreting Provider: Pedro Luque MD Consult Discharge Plan - Plan Referrals: Laura Nunes CNP [Primary Care Provider] - 09/03/16 1:00 pm
[2016-08-29] MEDS: *HR* Heparin 5,000 UNIT/ML VIAL SQ SCH (06:30)
[2016-08-29 07:27] LABS: BUN/Creatinine Ratio 24 (6-26); Blood Urea Nitrogen 18 mg/dL (7-20); Calcium 8.8 mg/dL (8.6-10.8); Carbon Dioxide 23 mEq/L (19-29); Chloride 109 mEq/L (98-109); Glucose 113 mg/dL (70-99); Osmolality,Calculated 297 (280-300); Potassium 3.7 mEq/L (3.5-4.5); Sodium 142 mEq/L (136-145); eGFR For African Americans > 60 (> 60); eGFR For Non-African Americans > 60 (> 60)
[2016-08-29 07:30] LABS: Basophils % 0.3 %; Eosinophils % 0.4 %; Hematocrit 32.5 % (35.3-44.9); Hemoglobin 10.1 g/dL (11.5-15.4); Immature Granulocytes % 1.1 % (0-4); Lymphocytes # 1.5 K/mcL (0.6-4.6); Lymphocytes % 12.9 %; Mean Corpuscular HGB Conc 31.1 g/dL (31.6-35.5); Mean Corpuscular Hemoglobin 26.9 pg (28.0-33.3); Mean Corpuscular Volume 86.4 fL (83.0-100.0); Mean Platelet Volume 10.9 fL (9.4-12.4); Monocytes # 0.6 K/mcL (0.0-1.3); Monocytes % 5.1 %; Neutrophils # 9.2 K/mcL (1.6-8.9); Platelet Count 309 K/mcL (140-400); Red Blood Count 3.76 M/mcL (3.82-4.97); Red Cell Distribution Width 13.8 % (11.5-14.5); Segmented Neutrophils % 80.2 %
[2016-08-29 07:37] LABS: INR 1.1; Prothrombin Time 11.9 Seconds (9.4-12.1)
--- NOTE | 2016-08-29 08:18 | Cardiology Progress Note ---
Date of Encounter: 08/29/16 Time of Encounter: 08:13 Assessment and Plan (1) Chest pain Current Visit: Yes Status: Acute Presented with recurrent chest pain in the setting of hypertensive urgency. Reports b/p 220-230 systolic on arrival to [facility]. Also c/o chest pain 08/14/16 after cyst removed from lumbar spine. Seen by cardiology at [facility]. Out-pt stress test recommended at that time. Troponin negative x 3. EKG shows SR with RBBB. Extensive history of CAD. Pharmacologic stress test recommended for further evaluation. Stress test to be completed today. TTE-Echocardiogram impressions: LVEF 55%. Normal left ventricular size and systolic function. Mild concentric hypertrophy of the left ventricle. There is evidence of moderate diastolic dysfunction of the left ventricle. Normal right ventricular size and function. Sclerotic aortic valve. No pulmonary hypertension. Continue asa, statin, plavix, and bb. Imdur increased. Qualifiers: Chest pain type: unspecified Qualified Code(s): R07.9 - Chest pain, unspecified (2) Coronary artery disease Current Visit: Yes Status: Chronic S/p [place] x5, CABG 2010, and multiple stents. Last [facility] in 2012- SHILPA x2 to SVG-OM, LAD patent, SVG-PDA occluded with 100% pRCA stenosis. TTE 2015- normal EF, moderate diastolic dysfunction. Continue asa, bb, and statin. Plavix restarted. Imdur increased. Qualifiers: Coronary Disease-Associated Artery/Lesion type: bypass graft [place] vs. transplanted heart: [place] heart Associated angina: with stable angina Qualified Code(s): I25.708 - Atherosclerosis of coronary artery bypass graft(s) , unspecified, with other forms of angina pectoris (3) Hypertension Current Visit: Yes Status: Chronic Blood pressure continues to be elevated despite restarting medications yesterday. Increase Zestril. Qualifiers: Hypertension type: essential hypertension Qualified Code(s): I10 - Essential (primary) hypertension Discussion w patient/family: The assessment and plan as outlined above was discussed with the patient and/or family members who expressed understanding and agreement. All questions were answered. Thank you for involving us in the care of your patient. Please call with any questions. Subjective Principal diagnosis: chest pain, sciatica pain. Interval history: Mrs. Longoria seen in the stress lab again today for second part of her stress test. She denies recurrent chest pain overnight. Objective Vital Signs, Last 4 Hours Temp Pulse Resp BP Pulse Ox 08/29/16 07:30 98.0 F 65 24 177/74 97 General: Conversant, No Apparent Distress HEENT: Atraumatic, Normocephaly, Mucus Membranes Moist Neck: No JVD, Normal carotid pulses Cardiac: Reg Rate and Rhythm, Normal S1 and S2, No Murmur Lungs: Normal Breath Sounds, No Wheeze, Rales, Rhonchi Neuro: Alert and responsive, No focal deficits noted Abdomen: Soft, Non-Tender Skin: No rashes noted on visualized skin, Other (Kandi intact on lower back. ) Musculoskeletal: No Chest Wall Tenderness Extremities: No Clubbing, No Cyanosis, No Edema, Normal Pulses Results 08/29/16 06:15 08/29/16 06:15 Lab Results 08/29/16 08/29/16 08/29/16 06:15 06:15 06:15 WBC 11.4 H Hgb 10.1 L Hct 32.5 L Plt Count 309 INR 1.1 Sodium 142 Potassium 3.7 Chloride 109 Carbon Dioxide 23 BUN 18 Creatinine 0.74 Glucose 113 H Calcium 8.8 - Imaging and Cardiology Echo: report reviewed (Echocardiogram impressions: LVEF 55%. Normal left ventricular size and systolic function. Mild concentric hypertrophy of the left ventricle. There is evidence of moderate diastolic dysfunction of the left ventricle. Normal right ventricular size and function. Sclerotic aortic valve. No pulmonary hypertension.) - EKG Interpretation EKG results cardiology: personally reviewed (SR with RBBB) Consult Discharge Plan - Plan Referrals: Laura Nunes CNP [Primary Care Provider] - 09/03/16 1:00 pm
[2016-08-29] MEDS ORDERED: Isosorbide MONOnitrate (24 HR) 30 MG TAB.ER.24H PO SCH (09:00)
[2016-08-29] MEDS: Famotidine 20 MG TABLET PO SCH (09:58)
[2016-08-29] MEDS: Acetaminophen 325 MG TABLET PO PRN (09:58)
[2016-08-29] MEDS: Gabapentin 300 MG CAPSULE PO SCH (09:58)
[2016-08-29] MEDS: Aspirin 81 MG TAB.CHEW PO SCH (09:58)
[2016-08-29] MEDS: predniSONE 20 MG TABLET PO SCH (09:59)
[2016-08-29 10:59] VITALS: BP 165/64
--- NOTE | 2016-08-29 11:15 | Nuclear Medicine Stress Report ---
Regadenoson Nuclear 2 day Name: Amelia Longoria Date of Study: 08/28/2016 Date: 1950 Ht: 65.0 in Medical Record#: [id number] Age: 66 Wt: 313.0 lb Gender: Female Order #: [id number] Location: [facility] Room: [facility] Supervising Provider: Carlos Zaman CNP Reading Physician: Krysta Bee DO Ordering Physician: Soo Agosto CNP Primary Care Physician: Laura Nunes CNP Stress Technologist: Claudia Soler FINANCIAL AIDS OFFICER, CCT Indications: Chest Pain, Coronary Artery Disease Impression: Mild reversible ischemia of the basal and mid inferior and inferolateral malhotra. Pharmacologic ECG was non diagnostic for ischemia. Patient had chest tightness with pharmacologic stress. Gated EF = >70%. Findings communicated to ordering clinician. History: Hypertension Diabetes Hypercholesteremia Prior PCI History of Coronary Artery Bypass Surgery Stress Test Summary: Stress Test Type: Pharmacologic Regadenoson 0.4mg/5ml given IV Baseline Information: Initial Heart Rate: 75 Blood Pressure: 160/90 Stress Information: Test Terminated Due to (primary): As per protocol Maximum Blood Pressure: 190/90 Maximum Heart Rate: 94 Percent Maximum Heart Rate Achieved: 61 Double Product: 41447 METS Reached: 1 Symptoms: Chest pain, Shortness of breath Nuclear Summary: SPECT myocardial perfusion imaging using Tc99m Sestamibi given intravenously was performed at rest and following cardiac stress testing. The resting images were obtained following initial dose of 34 mCi. Following stress an additional dose of 32 mCi was given at peak exercise or 30 seconds post regadenoson infusion. Medication Given: Time Medication Dose Units Route 07:55 Nitroglycerine SL Findings: Stress Note * Resting ECG demonstrated normal sinus rhythm with RBBB and nonspecific ST changes. * Pharmacologic stress ECG is non diagnostic for ischemia due to baseline non-specific ST and T changes. * Patient had chest tightness with pharmacologic stress. * There is a PVC during stress portion. Infrequent PACs during recovery. Hemodynamic responses * Normal hemodynamic responses to pharmacologic stress. Study Quality * Study quality was fair (2-day study due to body habitus). Gated EF > 70% * Gated EF > 70%. Left Ventricle * The left ventricle is not dilated. TID * No evidence of transient ischemic dilatation. Lung Uptake * There is no evidence of increase lung uptake. NORMALS * Normal wall motion. PERFUSION * Resting perfusion is normal. * During stress, there is a small sized, mild-moderate intensity defect involving the basal to mid inferior and inferolateral malhotra. * Other stress perfusion segments are normal. Updated by Krysta Bee on 08/29/2016 11:07:32 AM electronically signed on 08/29/2016 11:10:04 AM with status of Final
--- NOTE | 2016-08-29 12:08 | Event Note ---
Date of Encounter: 08/29/16 Time of Encounter: 12:00 - Cardiology Event Note Stress test shows mild reversible ischemia in the basal, mid inferior and inferior-lateral malhotra. EF normal. TTE shows normal EF. Moderate diastolic dysfunction. Stress test correlates with pt's known CAD. LHC in 2012 at [facility] showed occluded SVG to PDA and pRCA 100% stenosis. Will optimize medical management. Recommend increasing imdur to 60 mg daily and lisinopril back to 20 mg daily. SL NTG PRN. Plavix restarted on admission. F/U scheduled with Dr. Flynn 09/22/16. Cardiology will sign off. Call with questions. Plan discussed with Dr. Diggs.
[2016-08-29] MEDS ORDERED: Ranolazine 500 MG TAB.ER.12H PO SCH (12:15)
--- NOTE | 2016-08-29 15:36 | Discharge Summary ---
Date of Encounter: 08/29/16 Time of Encounter: 14:00 - Discharge Diagnosis (1) Chest pain Priority: Primary Status: Resolved Comments: Patient denied chest pain or shortness of breath throughout this admission. Echocardiogram unremarkable however stress test abnormal. Cardiology brought on board who recommended medical management Qualifiers: Chest pain type: unspecified Qualified Code(s): R07.9 - Chest pain, unspecified (2) S/P lumbar spinal fusion Priority: Secondary Status: Chronic Comments: Per Dr Briones at [place] on 08/13/16. Spoke to this provider and she will follow-up for possible staple removal on the day after discharge on 08/30/16. (3) Sciatica of left side Priority: Primary Status: Resolved (4) Lumbar radiculopathy Priority: Primary Status: Resolved (5) Coronary artery disease Priority: Secondary Status: Chronic Qualifiers: Coronary Disease-Associated Artery/Lesion type: bypass graft [place] vs. transplanted heart: [place] heart Associated angina: with stable angina Qualified Code(s): I25.708 - Atherosclerosis of coronary artery bypass graft(s) , unspecified, with other forms of angina pectoris (6) DVT prophylaxis Priority: Primary Status: Acute Comments: Subcutaneous heparin while admitted (7) Hypertension Priority: Secondary Status: Chronic Comments: Borderline hypertensive at times- engineered dosage increased per cardiology as well as her Zestril dosage. Plavix was also added. Recommend daily blood pressure checks at home, and following up outpatient. Qualifiers: Hypertension type: essential hypertension Qualified Code(s): I10 - Essential (primary) hypertension (8) Morbid obesity with BMI of 50.0-59.9, adult Priority: Secondary Status: Chronic - Discharge Medications Prescriptions: Isosorbide MONOnitrate (24 HR) [Imdur] 30 mg PO DAILY #30 tab.er.24h Metoprolol [Lopressor] 50 mg PO BID #60 tablet PredniSONE 60 mg PO DAILY #26 tablet Ranolazine [Ranexa] 500 mg PO BID #60 tab.er.12h Home Medications: Aspirin 81 mg PO DAILY 03/12/16 [History] Cholecalciferol (D-3) [Vitamin D] 1,000 unit PO DAILY 03/12/16 [History] Clopidogrel [Plavix] 75 mg PO DAILY 03/12/16 [History] Dicyclomine [Bentyl] 10 mg PO DAILY PRN 03/12/16 [History] Gabapentin [Neurontin] 600 mg PO BID 03/12/16 [History] Lisinopril [Zestril] 20 mg PO DAILY 03/12/16 [History] Metoprolol [Lopressor] 25 mg PO BID 03/12/16 [History] Nitroglycerin [Nitrostat] 0.4 mg SL Q5M PRN 03/12/16 [History] Ondansetron HCl [Zofran] 4 mg PO Q4-6H PRN 03/12/16 [History] Docusate Sodium [Stool Softener] 100 mg PO HS 08/26/16 [History] Duloxetine [Cymbalta] 30 mg PO HS 08/26/16 [History] Famotidine [Pepcid] 20 mg PO BID 08/26/16 [History] Metformin [Glucophage] 500 mg PO BID 08/27/16 [History] Simvastatin [Zocor] 40 mg PO HS 08/27/16 [History] Isosorbide MONOnitrate (24 HR) [Imdur] 30 mg PO DAILY #30 tab.er.24h 08/29/16 [ Rx] Metoprolol [Lopressor] 50 mg PO BID #60 tablet 08/29/16 [Rx] PredniSONE 60 mg PO DAILY #26 tablet 08/29/16 [Rx] Ranolazine [Ranexa] 500 mg PO BID #60 tab.er.12h 08/29/16 [Rx] Allergies/Adverse Reactions: Allergies amlodipine [From Norvasc] Allergy (Verified 03/12/16 07:22) Hives Amoxicillin Allergy (Verified 03/12/16 07:22) See Comments "pain" latex Allergy (Unverified 08/27/16 08:36) Rash Sulfa (Sulfonamide Antibiotics) Allergy (Verified 03/12/16 07:22) Itching ibuprofen [From Motrin] Adverse Reaction (Intermediate, Verified 08/26/16 20:44) bleeding patient stated cannot take motrin due to having stents placed. hydrocodone [From Vicodin] Adverse Reaction (Unverified 03/12/16 07:22) Gastrointestinal Upset morphine Adverse Reaction (Verified 08/27/16 08:36) Gastrointestinal Upset Oxycodone [From Percocet] Adverse Reaction (Verified 08/27/16 08:36) Gastrointestinal Upset propoxyphene [From Darvocet-N] Adverse Reaction (Unverified 03/12/16 07:22) Gastrointestinal Upset Procedures/tests Complete & Pending: Procedures Performed prior 72 hours Category Date Time Status CT lumbar spine wo con [CT] Routine Cat Scan 08/27/16 11:45 Completed NM krista perf SPECT multi [NM] Routine Exams 08/27/16 09:20 Taken EV echocardiogram Routine Y 08/27/16 09:21 Completed SP pharm nuclear stress Routine Y 08/28/16 08:00 Completed Date of admission: 08/28/16 15:21 Primary care physician: Laura Nunes CNP Consults: 08/27/16 09:17 Consult to Cardiology [CONS] Routine Comment: Consulting Provider: [facility] [place] Reason for Consult: CP- pt of Dr Flynn. Please eval and advise. Call Completed: No 08/27/16 14:31 Consult to Physical Therapy [CONS] Routine Comment: left sciatica, please eval and stretch 08/28/16 08:34 Consult to Surgery [CONS] Routine Consulting Provider: Vicky Gunn Reason for Consult: s/p L4-S1 fusion at [facility] (unable to perform here 2/2 BMI) on 08/13/16. Due to have kenny removed. L CT with seroma vs infection- please eval and advise. Spoke to Willa Reid CNP Time Notified: 08:35 Call Completed: Yes Discharging clinician: Soo Agosto Anticipated date of discharge: 08/29/16 - Patient Status Disposition: Home, Self-Care Condition: Fair Functional capacity at discharge: independent ambulation Overall status at discharge: patient is back to baseline - Discharge Instructions Follow Up With: Laura Nunes CNP [Primary Care Provider] - 09/03/16 1:00 pm Lee Briones MD [Non-Partnered Physician] - 08/30/16 2:00 pm (Staple removal at [place]) Additional Instructions: Follow-up with primary care provider and surgeon as scheduled. Follow-up with cardiology in 1-2 weeks - Diet and Activity Activity: increase activity as tolerated Diet: diabetic diet, low fat, low cholesterol, low salt diet Hospital course: Ms. Longoria is a 66 year old female with past medical history of CAD status post multiple stents, hypertension, hyperlipidemia, former tobacco abuse, bipolar disorder, morbid obesity with BMI of 54. Patient presented to the emergency department chief complaint chest pain 3 days. The pain had worsened over the 12 hours prior to presentation prompting her presentation at [facility]. Her chest pain resolved after nitroglycerin and was reported as localized, nonradiating, sharp in nature. Patient was sent [facility] as her primary rail technician is here. Workup in the emergency department unremarkable. Patient was admitted to the hospitalist service for further evaluation and management. Patient is status post spinal fusion L4-S1 per Dr Briones at [place] on 08/13/16. She was due to have her kenny taken out during this visit. She also noted a rather sizable not to the site of her incision site lumbar CT was obtained which was consistent with a postoperative seroma. There is no concern for an infection. Patient stating she would rather her primary care provider take the sutures out however spoke to her primary care provider who recommended that the patient return to the primary surgeon for staple removal. I also consulted surgery well this patient was admitted and they too stated that the patient will need to follow-up with her primary surgeon to have kenny removed. Patient denied chest pain or shortness of breath throughout this admission. Patient's biggest complaint during this admission was lumbar radiculopathy and sciatica on her right side. Pain was abated with prednisone and she was sent home on a prednisone taper. Regarding her chest pain, she had a 2 day stress test that had a small area of abnormality and reversible ischemia so cardiology was brought on board. Cardiology recommended medical management. Her Imdur dosage was increased- she was initially set to take 60 mg daily however her original dose was noted to be 15 mg that she was increased to 30 mg daily. Her metoprolol dosage was also increased and she was started on Ranexa. Patient was euvolemic on examination throughout this admission, echocardiogram is unremarkable with ejection fraction 55% and moderate diastolic dysfunction. An appointment was made with her [place] surgeon on the day after discharge (08/30/16). She was discharged home in stable condition with close outpatient follow-up recommended. ITS Impressions Lumbar Spine CT 08/27/16 11:45 IMPRESSION: 1. Postsurgical changes are noted from an anterior and posterior L4-S1 fusion without evidence of instrumentation loosening or failure. Fluid is noted in the L4-L5 laminectomy beds, likely related to a postoperative seroma, however, superimposed infection cannot entirely be excluded. If there is strong clinical concern, an MRI of the lumbar spine without and with intravenous contrast could be performed for further evaluation. 2. Mild central spinal canal narrowing at L1-L2. 3. No evidence of an acute fracture. 4. Atherosclerotic disease. 5. 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 D/ / 08/27/2016 14:48:31 Pedro Luque MD / [facility] Interpreting Provider: Pedro Luque MD Echocardiogram impressions: LVEF 55%. Normal left ventricular size and systolic function. Mild concentric hypertrophy of the left ventricle. There is evidence of moderate diastolic dysfunction of the left ventricle. Normal right ventricular size and function. Sclerotic aortic valve. No pulmonary hypertension. 2Day nuclear stress test impression: Mild reversible ischemia at the basal and mid inferior and inferolateral malhotra. Pharmacologic ECG is nondiagnostic for ischemia. Patient had chest tightness with pharmacologic stress. Gated ejection fraction greater than 70%. - Time Spent with Patient Total time spent providing and/or coordinating discharge services: - Constitutional Vitals: Temp Pulse Resp BP Pulse Ox 97.9 F 76 16 165/64 95 08/29/16 10:56 08/29/16 10:56 08/29/16 10:56 08/29/16 10:56 08/29/16 10:56 General appearance: Present: A&O X 3, morbidly obese, pleasant, no acute distress, answers questions appropriately - Head Head exam: Present: atraumatic, normocephalic - Eye Eye exam: Present: PERRL, conjuntiva pink, sclera anicteric Pupils: Present: PERRL - Neck Neck exam general surgery: Present: supple, trachea midline. Absent: lymphadenopathy - Respiratory Respiratory exam: Present: CTAB. Absent: accessory muscle use, rales, respiratory distress, rhonchi, wheezes - Cardiovascular Cardiovascular exam: Present: RRR, +S1, +S2. Absent: diastolic murmur, gallop, rubs, systolic murmur - GI/Abdominal GI/Abdominal exam: Present: distended, normal bowel sounds, soft, no peritoneal signs. Absent: tenderness - Extremities Exam Extremities exam: Present: warm, radial pulses palpable and symetrical. Absent : calf tenderness, cyanotic, pedal edema - Incison Incision: Present: clean and dry, approximated. Absent: purulent - Neurological Exam Neurological exam: Present: alert, CN II-XII intact, oriented X3, no focal deficits, strengths equal and symetr throughout. Absent: pronater drift, facial droop, speech deficit - Skin Skin exam: Present: dry, intact, normal color, warm
[2016-08-30] MEDS ORDERED: Isosorbide MONOnitrate (24 HR) 60 MG TAB.ER.24H PO SCH (09:00)
== END 2016-08-29 16:33 | disposition home or self-care (01) | DRG 305 ==
LOC: 3BNU → SUATTDRO 14:49
PROVIDERS: ADMIT Internal Medicine; ATTEND Nurse Practitioner Family

== ENCOUNTER 2018-04-04 15:40 | Inpatient (IN) ==
[2018-04-04] MEDS ORDERED: Ipratropium/Albuterol Neb 3 ML IH ONE (16:10)
[2018-04-04 16:25] LABS: Basophils # 0.1 K/mcL (0.0-0.2); Basophils % 0.3 %; Eosinophils # 0.1 K/mcL (0.0-0.6); Eosinophils % 0.3 %; Hematocrit 37.5 % (35.3-44.9); Hemoglobin 11.9 g/dL (11.5-15.4); Immature Granulocytes % 0.9 % (0-4); Lymphocytes # 0.8 K/mcL (0.6-4.6); Lymphocytes % 5.1 %; Mean Corpuscular HGB Conc 31.7 g/dL (31.6-35.5); Mean Corpuscular Hemoglobin 26.9 pg (28.0-33.3); Mean Corpuscular Volume 84.7 fL (83.0-100.0); Monocytes # 0.4 K/mcL (0.0-1.3); Monocytes % 2.5 %; Neutrophils # 14.7 K/mcL (1.6-8.9); Platelet Count 253 K/mcL (140-400); Red Blood Count 4.43 M/mcL (3.82-4.97); Red Cell Distribution Width 14.3 % (11.5-14.5); Segmented Neutrophils % 90.9 %
[2018-04-04 16:37] LABS: INR 1.5; Prothrombin Time 16.7 Seconds (9.4-12.1)
[2018-04-04 16:42] LABS: BUN/Creatinine Ratio 24 (6-26); Blood Urea Nitrogen 21 mg/dL (8-23); Calcium 9.2 mg/dL (8.6-10.3); Carbon Dioxide 26 mEq/L (23-29); Chloride 103 mEq/L (98-107); Glucose 168 mg/dL (70-105); Osmolality,Calculated 293 (280-300); Potassium 4.3 mEq/L (3.5-5.1); Sodium 138 mEq/L (136-145); Troponin I < 0.03 ng/mL (< 0.04); eGFR For Non-African Americans > 60 (> 60)
[2018-04-04] MEDS: Nitroglycerin 0.4 MG TAB.SUBL SL PRN ×3 (17:28→17:39)
--- NOTE | 2018-04-04 17:29 | Emergency Department Note ---
Disposition Clinical Impression: GILMORE (dyspnea on exertion), CAD (coronary artery disease) Disposition: Admitted As Inpatient Referrals: Mohit Bruce DO [Primary Care Provider] - General Adult HPI - General Chief complaint: ED Shortness of Breath/Dyspnea Stated complaint: MANDEEP Time Seen by Provider: 04/04/18 15:43 Source: patient Limitations: no limitations - History of Present Illness Pain Scale: 1 - Related Data Home Medications Medication Instructions Recorded Confirmed Apixaban [Eliquis] 5 mg PO BID 12/16/17 12/16/17 Cholecalciferol (D-3) [Vitamin D] 1,000 unit PO DAILY 12/16/17 12/16/17 Clopidogrel [Plavix] 75 mg PO DAILY 12/16/17 12/16/17 DULoxetine [Cymbalta] 30 mg PO HS 12/16/17 12/16/17 Latanoprost [Xalatan] 1 drop BOTH EYES HS 12/16/17 12/16/17 Lisinopril [Zestril] 20 mg PO DAILY 12/16/17 12/16/17 Metoprolol Tartrate [Metoprolol 50 mg PO BID 12/16/17 12/16/17 Tartrate] Simvastatin [Zocor] 20 mg PO HS 12/16/17 12/16/17 Bentyl 03/29/18 Nitroglycerin 03/29/18 Xarelto 03/29/18 Zofran 03/29/18 Allergies Allergy/AdvReac Type Severity Reaction Status Date / Time amlodipine [From Norvasc] Allergy Hives Verified 04/04/18 15:50 Amoxicillin Allergy See Verified 04/04/18 15:50 Comments latex Allergy Rash Verified 04/04/18 15:50 Sulfa (Sulfonamide Allergy Itching Verified 04/04/18 15:50 Antibiotics) ibuprofen [From Motrin] AdvReac Intermediate bleeding Verified 04/04/18 15:50 hydrocodone [From Vicodin] AdvReac Gastrointestinal Verified 04/04/18 15:50 Upset morphine AdvReac Gastrointestinal Verified 04/04/18 15:50 Upset Oxycodone [From Percocet] AdvReac Gastrointestinal Verified 04/04/18 15:50 Upset propoxyphene AdvReac Gastrointestinal Verified 04/04/18 15:50 [From Darvocet-N] Upset Past Medical History - Past Medical History Medical history: Reports: cancer, CHF, coronary artery disease, CVA, diabetes, GERD, hyperlipidemia, hypertension, myocardial infarction, TIA, other Surgical history: Reports: cholecystectomy, other Psychiatric history: Reports: anxiety, bipolar, depression 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 - Social History Smoking Status: Former smoker Smokeless Tobacco Status: No Alcohol use: Reports: none Drug use: Reports: none Physical Exam - General Limitations: no limitations General appearance: alert, in no apparent distress Course Vital Signs Temperature 98.1 F 04/04/18 15:48 Pulse Rate 64 04/04/18 15:48 Respiratory Rate 18 04/04/18 15:48 Blood Pressure 185/81 04/04/18 15:48 O2 Sat by Pulse Oximetry 96 04/04/18 15:48 Temperature 98.1 F 04/04/18 15:48 Pulse Rate 71 04/04/18 16:10 Respiratory Rate 18 04/04/18 16:38 Blood Pressure 212/89 04/04/18 16:10 O2 Sat by Pulse Oximetry 99 04/04/18 16:38 Oxygen Delivery Oxygen Delivery Room Air Medical Decision Making - Lab Data Result diagrams: 04/04/18 16:09 04/04/18 16:09 Lab Results 04/04/18 04/04/18 04/04/18 Range/Units 16:09 16:09 16:09 WBC 16.2 H (4.3-11.1) K/mcL RBC 4.43 (3.82-4.97) M/mcL Hgb 11.9 (11.5-15.4) g/dL Hct 37.5 (35.3-44.9) % MCV 84.7 (83.0-100.0) fL MCH 26.9 L (28.0-33.3) pg MCHC 31.7 (31.6-35.5) g/dL RDW 14.3 (11.5-14.5) % Plt Count 253 (140-400) K/mcL MPV 11.0 (9.4-12.4) fL Immature Gran % 0.9 (0-4) % Seg Neutrophils % 90.9 % Lymphocytes % 5.1 % Monocytes % 2.5 % Eosinophils % 0.3 % Basophils % 0.3 % Neutrophils # 14.7 H (1.6-8.9) K/mcL Lymphocytes # 0.8 (0.6-4.6) K/mcL Monocytes # 0.4 (0.0-1.3) K/mcL Eosinophils # 0.1 (0.0-0.6) K/mcL Basophils # 0.1 (0.0-0.2) K/mcL PT (9.4-12.1) Seconds INR D-Dimer (0-500) ng/mLFEU Sodium 138 (136-145) mEq/L Potassium 4.3 (3.5-5.1) mEq/L Chloride 103 (98-107) mEq/L Carbon Dioxide 26 (23-29) mEq/L BUN 21 (8-23) mg/dL Creatinine 0.87 (0.60-1.20) mg/dL Est GFR ( Amer) > 60 (> 60) Est GFR (Non-Af Amer) > 60 (> 60) BUN/Creatinine Ratio 24 (6-26) Glucose 168 H (70-105) mg/dL Calculated Osmolality 293 (280-300) Lactic Acid (0.5-2.2) mmol/L Calcium 9.2 (8.6-10.3) mg/dL Troponin I < 0.03 (< 0.04) ng/mL B-Natriuretic Peptide 597 H (Less than 100) pg/mL 04/04/18 04/04/18 04/04/18 Range/Units 16:09 16:17 16:17 WBC (4.3-11.1) K/mcL RBC (3.82-4.97) M/mcL Hgb (11.5-15.4) g/dL Hct (35.3-44.9) % MCV (83.0-100.0) fL MCH (28.0-33.3) pg MCHC (31.6-35.5) g/dL RDW (11.5-14.5) % Plt Count (140-400) K/mcL MPV (9.4-12.4) fL Immature Gran % (0-4) % Seg Neutrophils % % Lymphocytes % % Monocytes % % Eosinophils % % Basophils % % Neutrophils # (1.6-8.9) K/mcL Lymphocytes # (0.6-4.6) K/mcL Monocytes # (0.0-1.3) K/mcL Eosinophils # (0.0-0.6) K/mcL Basophils # (0.0-0.2) K/mcL PT 16.7 H (9.4-12.1) Seconds INR 1.5 D-Dimer 234 (0-500) ng/mLFEU Sodium (136-145) mEq/L Potassium (3.5-5.1) mEq/L Chloride (98-107) mEq/L Carbon Dioxide (23-29) mEq/L BUN (8-23) mg/dL Creatinine (0.60-1.20) mg/dL Est GFR ( Amer) (> 60) Est GFR (Non-Af Amer) (> 60) BUN/Creatinine Ratio (6-26) Glucose (70-105) mg/dL Calculated Osmolality (280-300) Lactic Acid 1.8 (0.5-2.2) mmol/L Calcium (8.6-10.3) mg/dL Troponin I < 0.03 (< 0.04) ng/mL B-Natriuretic Peptide (Less than 100) pg/mL Attestation Statement - Attestation Attestation: I examined this patient and my medical decision-making was reviewed with the Resident Physician. I agree with the documented findings, disposition and treatment plan as described except to the extent set forth below. 68-year-old female in presented to the emergency room for dyspnea on exertion or shortness of breath. States she has been sick now for over a week with increasing dyspnea. She was treated with antibiotics and steroids with no relief. She states it was getting worse today so she came to the ER. She has no pulmonary history. She denies any history of COPD. She does not wear home oxygen. He denies any chest pain to me at this time. 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 She does have a history of stents. She is on blood thinners. She is compliant with her blood thinners. She is also hypertensive here. She does take high blood pressure medications and has been compliant with those as well. She has no active chest pain. Her EKG is unremarkable from a acute ischemia standpoint. Troponin was negative. D-dimer negative. Chest x-ray does not reveal any infiltrate or pneumonia. Patient will need to be admitted for ACS evaluation and dyspnea on exertion.
[2018-04-04] MEDS ORDERED: Furosemide 40 MG/4 ML VIAL IVP ONE (17:48)
[2018-04-04] MEDS ORDERED: Nitroglycerin 1 INCH/GM PACKET TP ONE (17:48)
--- NOTE | 2018-04-04 18:30 | Emergency Department Note ---
Disposition Clinical Impression: Congestive heart failure Qualifiers: Heart failure type: diastolic Heart failure chronicity: acute on chronic Qualified Code(s): I50.33 - Acute on chronic diastolic (congestive) heart failure Disposition: Admitted As Inpatient Condition: Good Referrals: Mohit Bruce DO [Primary Care Provider] - Forms: ED Satisfaction Letter Time of Disposition: 18:35 General Adult HPI - General Chief complaint: ED Shortness of Breath/Dyspnea Stated complaint: MANDEEP Time Seen by Provider: 04/04/18 15:43 Source: patient Limitations: no limitations Nursing Notes Reviewed: Yes Vital Signs Reviewed: Yes - History of Present Illness HPI Narrative: Female patient presenting to the emergency department complaining of shortness of breath as well as a chest discomfort. Patient has an extensive medical history inclusive of CABG diastolic heart failure and COPD. She has been battling shortness of breath for the past week and half. She was seen at an urgent care and placed on doxycycline as well as prednisone and albuterol inhalers. She has been taking Tessalon Perles as well. She states that her symptoms are getting worse and now she has dyspnea on exertion pitting edema to her lower extremities and orthopnea. She denies any fevers or chills. She does not take any Lasix. She describes the chest pressure as shortness of breath and a tight feeling around her chest. No radiation of this discomfort. She does take anticoagulants. Pain Scale: 1 - Related Data Allergies Allergy/AdvReac Type Severity Reaction Status Date / Time amlodipine [From Norvasc] Allergy Hives Verified 04/04/18 18:26 latex Allergy Rash Verified 04/04/18 18:26 Sulfa (Sulfonamide Allergy Itching Verified 04/04/18 18:26 Antibiotics) ibuprofen [From Motrin] AdvReac Intermediate bleeding Verified 04/04/18 18:26 Amoxicillin AdvReac See Verified 04/04/18 18:26 Comments hydrocodone [From Vicodin] AdvReac Gastrointestinal Verified 04/04/18 18:26 Upset morphine AdvReac Gastrointestinal Verified 04/04/18 18:26 Upset Oxycodone [From Percocet] AdvReac Gastrointestinal Verified 04/04/18 18:26 Upset propoxyphene AdvReac Gastrointestinal Verified 04/04/18 18:26 [From Darvocet-N] Upset All systems ED: reviewed and negative except as stated. Review of Systems: As Per HPI Constitutional: Denies: fever, chills Cardiovascular: Reports: chest pain. Denies: palpitations, syncope Respiratory: Reports: cough, dyspnea, sputum production (Increased from normal.) Gastrointestinal: Denies: abdominal pain, nausea, vomiting, diarrhea, hematemesis, melena, hematochezia Genitourinary: Denies: urgency, dysuria, frequency, hematuria Musculoskeletal: Reports: other (Edema to lower extremities. ). Denies: back pain, neck pain Integumentary: Denies: rash Past Medical History - Past Medical History Attestation: Yes The following information was validated with the patient. 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 - Social History Smoking Status: Former smoker Smokeless Tobacco Status: No Alcohol use: Reports: none Drug use: Reports: none Physical Exam - General Limitations: no limitations General appearance: alert, in no apparent distress - Head Head exam: atraumatic, normocephalic, normal inspection - Eye Eye exam: Present: normal appearance, PERRL, EOMI - ENT ENT exam: normal exam, normal oropharynx, mucous membranes moist - Neck Neck exam: Present: normal inspection, full ROM, trachea midline - Chest Chest inspection: Present: normal inspection, symmetric chest wall rise - Respiratory Respiratory exam: Present: normal lung sounds bilaterally, respiratory distress , other (Rales and lower lobes. Does have some mild expiratory wheeze.). Absent: accessory muscle use - Cardiovascular Cardiovascular exam: Present: regular rate, normal rhythm, normal heart sounds - Abdominal Exam Abdominal exam: Present: soft, Non-Tender. Absent: tenderness, distention, rigidity, organomegaly - Extremities Exam Extremities exam: Present: normal inspection, full ROM, normal capillary refill , pedal edema (Pitting to the knees bilaterally.). Absent: tenderness - Back Exam Back exam: Present: normal inspection, full ROM. Absent: tenderness - Neurological Exam Neurological exam: Present: alert, oriented X3 - Psychiatric Psychiatric exam: Present: normal affect, normal mood - Skin Skin exam: Present: warm, dry, intact, normal color. Absent: rash, cyanosis, diaphoresis Course Course Narrative: Patient's BNP is elevated. Troponin is negative. EKG is a first-degree AV block and does have a right bundle branch block. Patient's chest pain and shortness of breath was completely relieved with nitroglycerin. We did place a Nitropaste on her chest. I do believe patient has a CHF exacerbation. We did provide patient with 40 of Lasix while here. We will admit patient to the hospital for CHF exacerbation. She states she does not take Lasix at home. Patient's d-dimer was negative. - Consultations Consultation #1: Dr Zabala accepted Pt in stable condition. Time: 18:35 Vital Signs Temperature 98.1 F 04/04/18 15:48 Pulse Rate 64 04/04/18 15:48 Respiratory Rate 18 04/04/18 15:48 Blood Pressure 185/81 04/04/18 15:48 O2 Sat by Pulse Oximetry 96 04/04/18 15:48 Temperature 98.1 F 04/04/18 15:48 Pulse Rate 63 04/04/18 17:40 Respiratory Rate 18 04/04/18 17:40 Blood Pressure 156/73 04/04/18 17:40 O2 Sat by Pulse Oximetry 100 04/04/18 17:40 Oxygen Delivery Oxygen Delivery Nasal Cannula Medical Decision Making - Medical Records Medical records reviewed: Yes I reviewed the patient's medical records. - Lab Data Lab results reviewed: Yes I reviewed the patient's lab results. Result diagrams: 04/04/18 16:09 04/04/18 16:09 Lab Results 04/04/18 04/04/18 04/04/18 Range/Units 16:09 16:09 16:09 WBC 16.2 H (4.3-11.1) K/mcL RBC 4.43 (3.82-4.97) M/mcL Hgb 11.9 (11.5-15.4) g/dL Hct 37.5 (35.3-44.9) % MCV 84.7 (83.0-100.0) fL MCH 26.9 L (28.0-33.3) pg MCHC 31.7 (31.6-35.5) g/dL RDW 14.3 (11.5-14.5) % Plt Count 253 (140-400) K/mcL MPV 11.0 (9.4-12.4) fL Immature Gran % 0.9 (0-4) % Seg Neutrophils % 90.9 % Lymphocytes % 5.1 % Monocytes % 2.5 % Eosinophils % 0.3 % Basophils % 0.3 % Neutrophils # 14.7 H (1.6-8.9) K/mcL Lymphocytes # 0.8 (0.6-4.6) K/mcL Monocytes # 0.4 (0.0-1.3) K/mcL Eosinophils # 0.1 (0.0-0.6) K/mcL Basophils # 0.1 (0.0-0.2) K/mcL PT (9.4-12.1) Seconds INR D-Dimer (0-500) ng/mLFEU Sodium 138 (136-145) mEq/L Potassium 4.3 (3.5-5.1) mEq/L Chloride 103 (98-107) mEq/L Carbon Dioxide 26 (23-29) mEq/L BUN 21 (8-23) mg/dL Creatinine 0.87 (0.60-1.20) mg/dL Est GFR ( Amer) > 60 (> 60) Est GFR (Non-Af Amer) > 60 (> 60) BUN/Creatinine Ratio 24 (6-26) Glucose 168 H (70-105) mg/dL Calculated Osmolality 293 (280-300) Lactic Acid (0.5-2.2) mmol/L Calcium 9.2 (8.6-10.3) mg/dL Troponin I < 0.03 (< 0.04) ng/mL B-Natriuretic Peptide 597 H (Less than 100) pg/mL 04/04/18 04/04/18 04/04/18 Range/Units 16:09 16:17 16:17 WBC (4.3-11.1) K/mcL RBC (3.82-4.97) M/mcL Hgb (11.5-15.4) g/dL Hct (35.3-44.9) % MCV (83.0-100.0) fL MCH (28.0-33.3) pg MCHC (31.6-35.5) g/dL RDW (11.5-14.5) % Plt Count (140-400) K/mcL MPV (9.4-12.4) fL Immature Gran % (0-4) % Seg Neutrophils % % Lymphocytes % % Monocytes % % Eosinophils % % Basophils % % Neutrophils # (1.6-8.9) K/mcL Lymphocytes # (0.6-4.6) K/mcL Monocytes # (0.0-1.3) K/mcL Eosinophils # (0.0-0.6) K/mcL Basophils # (0.0-0.2) K/mcL PT 16.7 H (9.4-12.1) Seconds INR 1.5 D-Dimer 234 (0-500) ng/mLFEU Sodium (136-145) mEq/L Potassium (3.5-5.1) mEq/L Chloride (98-107) mEq/L Carbon Dioxide (23-29) mEq/L BUN (8-23) mg/dL Creatinine (0.60-1.20) mg/dL Est GFR ( Amer) (> 60) Est GFR (Non-Af Amer) (> 60) BUN/Creatinine Ratio (6-26) Glucose (70-105) mg/dL Calculated Osmolality (280-300) Lactic Acid 1.8 (0.5-2.2) mmol/L Calcium (8.6-10.3) mg/dL Troponin I < 0.03 (< 0.04) ng/mL B-Natriuretic Peptide (Less than 100) pg/mL - Radiology Data Radiology results reviewed: Yes I reviewed the patient's radiology results. Chest X-Ray 04/04/18 16:10 IMPRESSION: No evidence of acute process. D/ / Raleigh Rosen / Raleigh Rosen Interpreting Provider: Raleigh Rosen - EKG Data EKG #1 EKG attestation: Yes I reviewed and interpreted this EKG. EKG results narrative: Sinus rhythm at a rate of 66. There is a first-degree AV block with NM interval is 210. QRS duration is 150. QT is 429. QTC is 442. Patient does have a right bundle branch block. There is no signs of acute ischemia. He does not need scarbosa criteria.
--- NOTE | 2018-04-04 18:54 | Internal Med History&Physical ---
Date of Encounter: 04/04/18 Time of Encounter: 18:00 Internal Medicine - H&P: HPI Chief complaint: Shortness of breath Admitted From: Home Plans for Post Hospital Care: Home History of present illness: Patient is a 68-year-old female with past medical history significant for CABG and 5 stents in addition to diastolic heart failure and atrial fibrillation with CVA who presents to the ER on 04/04/18 due to shortness of breath. Patient reported of a 3 days history of shortness of breath with bilateral pedal edema. She admits increase sodium intake the last week due to eating can soup and lunch meeting because she was sick with bronchitis. Patient stated that she was recently seen in urgent care approximately one week ago and was started on doxycycline and prednisone for bronchitis. Patient reports that shortness of breath has gotten worse so decided to come to the ER for evaluation. In the ER, patient was found to have an elevated BNP of 597. Patient was also found to have a white count of 16.2 with expiratory wheezes. She will be admitted to medical surgical floor for acute on chronic diastolic heart failure with bronchitis. Past Med Surg Social Fam HX - Past Medical History Medical history: cancer, CHF, coronary artery disease, CVA, diabetes, GERD, hyperlipidemia, hypertension, myocardial infarction, TIA, other Psychiatric history: anxiety, bipolar, depression - Past Surgical History Surgical History: cholecystectomy, other Additional surgical history: bilateral masectomy, back sx - Social History Smoking Status: Former smoker Smokeless Tobacco Status: No Alcohol use: none Drug use: none - Family History Father Living Status: Hx Family Cardiac Disorders: Yes Internal Medicine - H&P: Meds Acetaminophen/Chlorpheniramine [Coricidin HBP Cold & Flu Tab] 2 each PO Q4HR PRN 04/04/18 [History] Cholecalciferol (D-3) [Vitamin D] 1,000 unit PO DAILY 04/04/18 [History] Clopidogrel [Plavix] 75 mg PO DAILY 04/04/18 [History] DULoxetine [Cymbalta] 30 mg PO HS 04/04/18 [History] Doxycycline Hyclate [Doxycycline Hyclate] 100 mg PO BID 04/04/18 [History] Guaifenesin 400 mg PO BID PRN 04/04/18 [History] Latanoprost [Xalatan] 1 drop BOTH EYES HS 04/04/18 [History] Lisinopril [Zestril] 20 mg PO DAILY 04/04/18 [History] Metoprolol Tartrate [Metoprolol Tartrate] 25 mg PO BID 04/04/18 [History] Nitroglycerin [Nitrostat] 0.4 mg SL Q5M PRN MDD [id number] CALL 911 04/04/18 [ History] Ondansetron HCl [Zofran] 4 mg PO Q8H PRN 04/04/18 [History] Rivaroxaban [Xarelto] 20 mg PO QPM 04/04/18 [History] 3 Allergy/AdvReac Type Severity Reaction Status Date / Time amlodipine [From Norvas] Allergy Hives Verified 04/04/18 18:26 latex Allergy Rash Verified 04/04/18 18:26 Sulfa (Sulfonamide Allergy Itching Verified 04/04/18 18:26 Antibiotics) ibuprofen [From Motrin] AdvReac Intermediate bleeding Verified 04/04/18 18:26 Amoxicillin AdvReac See Verified 04/04/18 18:26 Comments hydrocodone [From Vicodin] AdvReac Gastrointestinal Verified 04/04/18 18:26 Upset morphine AdvReac Gastrointestinal Verified 04/04/18 18:26 Upset Oxycodone [From Percocet] AdvReac Gastrointestinal Verified 04/04/18 18:26 Upset propoxyphene AdvReac Gastrointestinal Verified 04/04/18 18:26 [From Darvocet-N] Upset All Systems PM: A 10-system review of systems was performed and is negative for pertinent findings except as documented above in the HPI. - Constitutional Vitals: Temp Pulse Resp BP Pulse Ox 98.1 F 63 18 156/73 100 04/04/18 15:48 04/04/18 17:40 04/04/18 17:40 04/04/18 17:40 04/04/18 17:40 General appearance: Present: A&O X 3, no acute distress Exam: as below - Eye Eye exam: Present: normal appearance - ENT ENT exam: Present: mucous membranes moist - Respiratory Respiratory exam: Present: CTAB. Absent: accessory muscle use, rales, rhonchi, wheezes - Cardiovascular Cardiovascular exam: Present: RRR, +S1, +S2. Absent: diastolic murmur, gallop, rubs, systolic murmur - GI/Abdominal GI/Abdominal exam: Present: normal bowel sounds, soft, no peritoneal signs. Absent: distended, tenderness - Expanded Lower Extremities Exam Foot/Toe exam: Present: swelling - Neurological Exam Neurological exam: Present: oriented X3, no focal deficits. Absent: pronater drift, facial droop, speech deficit - Psychiatric Psychiatric exam: Present: normal mood - Skin Skin exam: Present: normal color Internal Med - H&P Results - Labs CBC & Chem 7: 04/04/18 16:09 04/04/18 16:09 Labs: Short CBC 04/04/18 Range/Units 16:09 WBC 16.2 H (4.3-11.1) K/mcL Hgb 11.9 (11.5-15.4) g/dL Hct 37.5 (35.3-44.9) % Plt Count 253 (140-400) K/mcL Neutrophils # 14.7 H (1.6-8.9) K/mcL BMP 04/04/18 16:09 Sodium 138 Potassium 4.3 Chloride 103 Carbon Dioxide 26 BUN 21 Creatinine 0.87 Glucose 168 H Calcium 9.2 Cardiac Enzymes 04/04/18 04/04/18 Range/Units 16:09 16:17 Troponin I < 0.03 < 0.03 (< 0.04) ng/mL - Impressions ITS Impressions Chest X-Ray 04/04/18 16:10 IMPRESSION: No evidence of acute process. D/ / Raleigh Rosen / Raleigh Rosen Interpreting Provider: Raleigh Rosen - Assessment and plan (1) Acute on chronic diastolic heart failure Current Visit: Yes Status: Acute Assessment and plan: Patient with shortness of breath for 3 days with bilateral pedal edema and elevated BNP of 597 on admission Echocardiogram on 08/2016 showed LVEF of 55% with evidence of moderate diastolic dysfunction of left ventricle She reports that nitroglycerin gave her some relief of her symptoms. Will give patient IV Lasix 40 mg twice daily and repeat echocardiogram. Will also trend serial troponins and monitor on telemetry. Will consult cardiology to determine if patient will need a daily regimen of by mouth Lasix on discharge (2) Coronary artery disease Current Visit: Yes Status: Chronic Assessment and plan: Patient with a history of CABG and 5 coronary artery stents. She reports nitroglycerin gave her some relief of her symptoms of shortness of breath above. Will trend serial troponins as above and continue Plavix, JONATAN inhibitor and beta barry. Qualifiers: Associated angina: without angina Qualified Code(s): I25.10 - Atherosclerotic heart disease of [place] coronary artery without angina pectoris (3) Bronchitis Current Visit: No Status: Acute Assessment and plan: Patient with expiratory wheezing on exam. Will place patient on by mouth Levaquin and by mouth prednisone (4) Atrial fibrillation Current Visit: Yes Status: Acute Assessment and plan: Heart rate controlled; continue beta barry and oral anticoagulation with Xarelto Qualifiers: Atrial fibrillation type: chronic Qualified Code(s): I48.2 - Chronic atrial fibrillation (5) Hypertension Current Visit: No Status: Chronic Assessment and plan: Blood pressures controlled; continue beta barry and JONATAN inhibitor Qualifiers: Hypertension type: essential hypertension Qualified Code(s): I10 - Essential (primary) hypertension (6) Morbid obesity with BMI of 50.0-59.9, adult Current Visit: No Status: Chronic Assessment and plan: Lifestyle modifications (7) DVT prophylaxis Current Visit: No Status: Acute Assessment and plan: Patient on Xarelto as above - Time Spent With Patient Total time spent is greater than 50% in coordination of care (as documented) at patient's floor/unit and/or counseling patient:
[2018-04-04] MEDS ORDERED: Naloxone 0.4 MG/ML INJ IVP PRN (19:02)
[2018-04-04] MEDS ORDERED: Nitroglycerin 0.4 MG TAB.SUBL SL PRN (19:11)
[2018-04-04] MEDS ORDERED: Ondansetron ODT 4 MG TAB.RAPDIS SL PRN (19:11)
[2018-04-04] MEDS: Ipratropium/Albuterol Neb 3 ML IH SCH (20:29)
[2018-04-04] MEDS: predniSONE 20 MG TABLET PO SCH (20:46)
[2018-04-04] MEDS: Latanoprost 2.5 ML BOTTLE BOTH EYES SCH (20:46)
[2018-04-04] MEDS ORDERED: *HR* Rivaroxaban 10 MG TABLET PO ONE (21:10)
[2018-04-05] MEDS: Ipratropium/Albuterol Neb 3 ML IH SCH ×6 (00:11→19:46)
[2018-04-05] MEDS: Benzonatate 100 MG CAPSULE PO PRN ×3 (03:50→23:32)
[2018-04-05 05:11] LABS: Basophils % 0.3 %; Eosinophils # 0.1 K/mcL (0.0-0.6); Eosinophils % 0.5 %; Hematocrit 37.6 % (35.3-44.9); Hemoglobin 11.4 g/dL (11.5-15.4); Immature Granulocytes % 0.8 % (0-4); Lymphocytes # 1.7 K/mcL (0.6-4.6); Lymphocytes % 11.9 %; Mean Corpuscular HGB Conc 30.3 g/dL (31.6-35.5); Mean Corpuscular Hemoglobin 25.7 pg (28.0-33.3); Mean Corpuscular Volume 84.9 fL (83.0-100.0); Mean Platelet Volume 11.1 fL (9.4-12.4); Monocytes # 0.7 K/mcL (0.0-1.3); Monocytes % 4.9 %; Platelet Count 248 K/mcL (140-400); Red Blood Count 4.43 M/mcL (3.82-4.97); Red Cell Distribution Width 14.4 % (11.5-14.5); Segmented Neutrophils % 81.6 %
[2018-04-05 05:25] LABS: BUN/Creatinine Ratio 24 (6-26); Blood Urea Nitrogen 23 mg/dL (8-23); Calcium 9.1 mg/dL (8.6-10.3); Carbon Dioxide 30 mEq/L (23-29); Chloride 102 mEq/L (98-107); Glucose 132 mg/dL (70-105); Osmolality,Calculated 296 (280-300); Potassium 3.5 mEq/L (3.5-5.1); Sodium 140 mEq/L (136-145); eGFR For Non-African Americans 57 (> 60)
[2018-04-05] MEDS: levoFLOXacin 500 MG TABLET PO SCH (09:05)
[2018-04-05] MEDS: predniSONE 20 MG TABLET PO SCH (09:05)
[2018-04-05] MEDS: Lisinopril 20 MG TABLET PO SCH (09:06)
[2018-04-05] MEDS: Furosemide 40 MG/4 ML VIAL IVP SCH ×2 (09:06→17:44)
[2018-04-05] MEDS: Cholecalciferol (D-3) 1,000 UNIT TABLET PO SCH (09:06)
--- NOTE | 2018-04-05 09:36 | Internal Med Progress Note ---
Hospitalist Progress Note - Encounter Date of Encounter: 04/05/18 Time of Encounter: 11:00 - Subjective Interval History: Patient reports feeling better this morning with IV diuresis - Exam Vitals: Temp Pulse Resp BP Pulse Ox 97.9 F 67 16 173/77 97 04/05/18 07:31 04/05/18 07:31 04/05/18 07:40 04/05/18 07:31 04/05/18 07:40 Exam: Gen.: Nonacute distress, alert and oriented 3 ENT: Mucosal membranes moist Respiratory: Lungs are clear to auscultation bilaterally without any wheezing rhonchi or rales Cardiovascular: Normal S1 and S2 regular rate rhythm no murmurs rubs or gallops Abdomen: Soft, nontender and nondistended with positive bowel sounds Extremities: No lower extremity edema Skin: Normal color - Assessment and Plan (1) Acute on chronic diastolic heart failure Current Visit: Yes Status: Acute Assessment and Plan: Patient with shortness of breath for 3 days with bilateral pedal edema and elevated BNP of 597 on admission Echocardiogram on 08/2016 showed LVEF of 55% with evidence of moderate diastolic dysfunction of left ventricle She reports that nitroglycerin gave her some relief of her symptoms. Echocardiogram pending Will continue IV Lasix 40 mg twice daily Will consult cardiology to determine if patient will need a daily regimen of by mouth Lasix on discharge (2) Coronary artery disease Current Visit: Yes Status: Chronic Assessment and Plan: Patient with a history of CABG and 5 coronary artery stents. She reports nitroglycerin gave her some relief of her symptoms of shortness of breath above. Serial troponins; continue Plavix, JONATAN inhibitor and beta barry. (3) Bronchitis Current Visit: No Status: Acute Assessment and Plan: Patient with expiratory wheezing on exam. Leukocytosis however improving and patient afebrile Will continue by mouth Levaquin and by mouth prednisone as well as scheduled DuoNeb's (4) Atrial fibrillation Current Visit: Yes Status: Acute Assessment and Plan: Heart rate controlled; continue beta barry and oral anticoagulation with Xarelto (5) Hypertension Current Visit: No Status: Chronic Assessment and Plan: Blood pressures controlled; continue beta barry and JONATAN inhibitor (6) Morbid obesity with BMI of 50.0-59.9, adult Current Visit: No Status: Chronic Assessment and Plan: Lifestyle modifications (7) DVT prophylaxis Current Visit: No Status: Acute Assessment and Plan: Patient on Xarelto as above - Time Spent with Patient Total time spent is greater than 50% in coordination of care (as documented) at patient's floor/unit and/or counseling patient: Internal Medicine: Result - Labs CBC & Chem 7: 04/05/18 04:05 04/05/18 04:05 Labs: Short CBC 04/05/18 Range/Units 04:05 WBC 14.7 H (4.3-11.1) K/mcL Hgb 11.4 L (11.5-15.4) g/dL Hct 37.6 (35.3-44.9) % Plt Count 248 (140-400) K/mcL Neutrophils # 12.0 H (1.6-8.9) K/mcL BMP 04/05/18 04:05 Sodium 140 Potassium 3.5 Chloride 102 Carbon Dioxide 30 H BUN 23 Creatinine 0.97 Glucose 132 H Calcium 9.1 Cardiac Enzymes 04/04/18 04/05/18 Range/Units 21:59 04:05 Troponin I < 0.03 < 0.03 (< 0.04) ng/mL - ABG Interpretation ABG results: PT/INR, D-dimer PT 16.7 Seconds (9.4-12.1) H 04/04/18 16:09 D-Dimer 234 ng/mLFEU (0-500) 04/04/18 16:09 Consult Discharge Plan - Plan Referrals: Mohit Bruce DO [Primary Care Provider] - (2) Coronary artery disease Qualifiers: Coronary Disease-Associated Artery/Lesion type: bypass graft [place] vs. transplanted heart: [place] heart Associated angina: without angina Qualified Code(s): I25.810 - Atherosclerosis of coronary artery bypass graft(s) without angina pectoris (4) Atrial fibrillation Qualifiers: Atrial fibrillation type: chronic Qualified Code(s): I48.2 - Chronic atrial fibrillation (5) Hypertension Qualifiers: Hypertension type: essential hypertension Qualified Code(s): I10 - Essential (primary) hypertension
[2018-04-05] MEDS ORDERED: Perflutren Lipid Microsphere 1.3 ML in 0.9 % Sodium Chloride 8.7 ML IVP ONE (11:58)
--- NOTE | 2018-04-05 12:45 | Cardiology Consult Note ---
Date of Encounter: 04/05/18 Time of Encounter: 12:42 Assessment and Plan (1) Congestive heart failure Current Visit: Yes Status: Acute Presents with SOB and BLE edema. H/o preserved EF with moderate diastolic dysfunction. TTE 08/27/16-LVEF 55%. Normal left ventricular size and systolic function. Mild concentric hypertrophy of the left ventricle. There is evidence of moderate diastolic dysfunction of the left ventricle. Normal right ventricular size and function. Sclerotic aortic valve. No pulmonary hypertension. BNP 597. CXR with no acute process. Suspect acute on chronic CHFpEF. She has not required diuretic in the past. Suspect fluid overload secondary to recent dietary intake of canned soups and other dietary indescretions. Agree with checking TTE. IV lasix as you are doing. Recommend 20 mg oral lasix at d/c for maintenance once euvolemic. Monitor strict I&O and daily weights. CHF education including low sodium diet discussed. Monitor Scr. Qualifiers: Heart failure type: diastolic Heart failure chronicity: acute on chronic Qualified Code(s): I50.33 - Acute on chronic diastolic (congestive) heart failure (2) Coronary artery disease Current Visit: Yes Status: Chronic H/o multiple NH, 2v CABG in 2009, and multiple PCI. Last [facility] in 2012- SHILPA x2 to SVG-OM, LAD patent, SVG-PDA occluded with 100% pRCA stenosis. Stress 08/28/16-demonstrates mild ischemia in the inferior and inferolateral segments. Findings Correlated with known SVG to RPDA and pRCA occllusion. Medical management was recommended. She denies chest pain. Troponin neagtive. EKG -SR with RBBB. C/o SOB with exertion. Likely from CHF. Qualifiers: Coronary Disease-Associated Artery/Lesion type: bypass graft [place] vs. transplanted heart: [place] heart Associated angina: without angina Qualified Code(s): I25.810 - Atherosclerosis of coronary artery bypass graft(s) without angina pectoris Discussion w patient/family: The assessment and plan as outlined above was discussed with the patient and/or family members who expressed understanding and agreement. All questions were answered. Thank you for involving us in the care of your patient. Please call with any questions. History of Present Illness Consult date: 04/05/18 Requesting physician: Keshawn Ospina Consult reason: CHF Chief complaint: SOB History of present illness: Ms. Longoria is a 68 year old female with past medical history significant for NH x 5, 2V CABG 2009, Multiple PCI, hypertension, and breast cancer s/p bilateral mastectomy. She presents with SOB and increasing BLE edema for three days. She does not take diuretic at home. She states she took SL NTG with some improvement in her SOB. Cardiology consulted for CHF. Past Med Surg Social Fam HX - Past Medical History Medical history: cancer, CHF, coronary artery disease, CVA, GERD, hyperlipidemia , hypertension, myocardial infarction, TIA, other Additional medical history: right breast cancer Psychiatric history: anxiety, bipolar, depression - Past Surgical History Surgical History: cholecystectomy, other Additional surgical history: bilateral masectomy, back sx - Social History Smoking Status: Former smoker Smokeless Tobacco Status: No Alcohol use: none Drug use: none - Family History Father Living Status: Hx Family Cardiac Disorders: Yes Medications and Allergies Acetaminophen/Chlorpheniramine [Coricidin HBP Cold & Flu Tab] 2 each PO Q4HR PRN 04/04/18 [History] Cholecalciferol (D-3) [Vitamin D] 1,000 unit PO DAILY 04/04/18 [History] Clopidogrel [Plavix] 75 mg PO DAILY 04/04/18 [History] DULoxetine [Cymbalta] 30 mg PO HS 04/04/18 [History] Doxycycline Hyclate [Doxycycline Hyclate] 100 mg PO BID 04/04/18 [History] Guaifenesin 400 mg PO BID PRN 04/04/18 [History] Latanoprost [Xalatan] 1 drop BOTH EYES HS 04/04/18 [History] Lisinopril [Zestril] 20 mg PO DAILY 04/04/18 [History] Metoprolol Tartrate [Metoprolol Tartrate] 25 mg PO BID 04/04/18 [History] Nitroglycerin [Nitrostat] 0.4 mg SL Q5M PRN MDD [id number] CALL 911 04/04/18 [ History] Ondansetron HCl [Zofran] 4 mg PO Q8H PRN 04/04/18 [History] Rivaroxaban [Xarelto] 20 mg PO QPM 04/04/18 [History] 3 Allergy/AdvReac Type Severity Reaction Status Date / Time amlodipine [From [facility]] Allergy Hives Verified 04/04/18 18:26 latex Allergy Rash Verified 04/04/18 18:26 Sulfa (Sulfonamide Allergy Itching Verified 04/04/18 18:26 Antibiotics) ibuprofen [From Motrin] AdvReac Intermediate bleeding Verified 04/04/18 18:26 Amoxicillin AdvReac See Verified 04/04/18 18:26 Comments hydrocodone [From Vicodin] AdvReac Gastrointestinal Verified 04/04/18 18:26 Upset morphine AdvReac Gastrointestinal Verified 04/04/18 18:26 Upset Oxycodone [From Percocet] AdvReac Gastrointestinal Verified 04/04/18 18:26 Upset propoxyphene AdvReac Gastrointestinal Verified 04/04/18 18:26 [From Darvocet-N] Upset All Systems Review: The remainder of the systems were reviewed and are negative Physical Examination Vital Signs, Last 4 Hours Resp Pulse Ox 04/05/18 11:00 16 96 General: Conversant, No Apparent Distress HEENT: Atraumatic, Normocephaly, Mucus Membranes Moist Neck: No JVD, Normal carotid pulses Cardiac: Reg Rate and Rhythm, Normal S1 and S2, No Murmur Lungs: Normal Breath Sounds, No Wheeze, Rales, Rhonchi Neuro: Alert and responsive, No focal deficits noted Abdomen: Soft, Non-Tender Skin: No rashes noted on visualized skin Musculoskeletal: No Chest Wall Tenderness Extremities: No Clubbing, No Cyanosis, Normal Pulses, Other (1-2+ edema bilateral feet.) Results 04/05/18 04:05 04/05/18 04:05 Lab Results 04/04/18 04/05/18 04/05/18 21:59 04:05 04:05 WBC 14.7 H Hgb 11.4 L Hct 37.6 Plt Count 248 Sodium Potassium Chloride Carbon Dioxide BUN Creatinine Glucose Calcium Troponin I < 0.03 < 0.03 04/05/18 04/05/18 04:05 10:04 WBC Hgb Hct Plt Count Sodium 140 Potassium 3.5 Chloride 102 Carbon Dioxide 30 H BUN 23 Creatinine 0.97 Glucose 132 H Calcium 9.1 Troponin I < 0.03 - Imaging and Cardiology Echo: report reviewed - EKG Interpretation EKG results cardiology: personally reviewed Consult Discharge Plan - Plan Referrals: Mohit Bruce DO [Primary Care Provider] -
[2018-04-05] MEDS: *HR* Rivaroxaban 10 MG TABLET PO SCH (17:44)
[2018-04-05] MEDS: Latanoprost 2.5 ML BOTTLE BOTH EYES SCH (19:29)
[2018-04-05] MEDS: Acetaminophen 325 MG TABLET PO PRN (19:36)
[2018-04-05] MEDS: Nitroglycerin 0.4 MG TAB.SUBL SL PRN (23:44)
[2018-04-06] MEDS ORDERED: Aspirin 325 MG TABLET PO ONE
[2018-04-06] MEDS: Nitroglycerin 0.4 MG TAB.SUBL SL PRN (00:02)
[2018-04-06] MEDS ORDERED: Nitroglycerin 1 INCH/GM PACKET TP ONE (00:08)
[2018-04-06] MEDS: Ipratropium/Albuterol Neb 3 ML IH SCH ×6 (00:08→19:40)
--- NOTE | 2018-04-06 00:13 | Event Note ---
Date of Encounter: 04/06/18 Time of Encounter: 23:25 Alerted by pts. nurse BRITTANY Ayala that the pt. was complaining of 2/10 chest pain. Pt. thought it may be pleuritic d/t uncontrolled coughing. BP was 176/70. Ordered stat EKG. Went to see pt. who was mildly diaphoretic and coughing. Pt. is currently on Plavix 75 mg daily and Xarelto 20 mg @ 17:00. EKG showed sinus rhythm w/RBBB and ST depression, consider subendocardial injury. Stat Troponin ordered. Discussed pt. and EKG w/Drs. Bazan and Jess w/recommendation to give 325 mg aspirin now and repeat troponin at 06:00. Dr. Mercado will order 0.5 Nitro paste for pt. overnight. Pt. had Echo done today which showed technically sub-optimal due to poor echocardiographic windows. LVEF of 60%, normal LV chamber size and function, mild concentric left ventricular hypertrophy, moderate left ventricular diastolic dysfunction, normal right ventricular structure and function, atypical septal motion consistent with post- operative status, no evidence of pulmonary HTN, and no significant valvular dysfunction. Cardiology to be consulted again. Pt. to be monitored closely overnight for changes.
[2018-04-06] MEDS: levoFLOXacin 500 MG TABLET PO SCH (09:19)
[2018-04-06] MEDS: Cholecalciferol (D-3) 1,000 UNIT TABLET PO SCH (09:19)
[2018-04-06] MEDS: predniSONE 20 MG TABLET PO SCH (09:19)
[2018-04-06] MEDS: Lisinopril 20 MG TABLET PO SCH (09:19)
[2018-04-06] MEDS: Furosemide 40 MG/4 ML VIAL IVP SCH ×2 (09:19→16:30)
[2018-04-06 11:24] LABS: Basophils % 0.3 %; Eosinophils # 0.2 K/mcL (0.0-0.6); Eosinophils % 1.5 %; Hemoglobin 12.2 g/dL (11.5-15.4); Immature Granulocytes % 0.8 % (0-4); Lymphocytes # 2.1 K/mcL (0.6-4.6); Lymphocytes % 14.7 %; Mean Corpuscular HGB Conc 31.3 g/dL (31.6-35.5); Mean Corpuscular Hemoglobin 26.7 pg (28.0-33.3); Mean Corpuscular Volume 85.3 fL (83.0-100.0); Mean Platelet Volume 10.7 fL (9.4-12.4); Monocytes # 0.9 K/mcL (0.0-1.3); Monocytes % 6.5 %; Neutrophils # 10.8 K/mcL (1.6-8.9); Platelet Count 255 K/mcL (140-400); Red Blood Count 4.57 M/mcL (3.82-4.97); Red Cell Distribution Width 14.7 % (11.5-14.5); Segmented Neutrophils % 76.2 %
[2018-04-06 11:45] LABS: BUN/Creatinine Ratio 22 (6-26); Blood Urea Nitrogen 24 mg/dL (8-23); Calcium 9.1 mg/dL (8.6-10.3); Carbon Dioxide 31 mEq/L (23-29); Chloride 100 mEq/L (98-107); Glucose 203 mg/dL (70-105); Osmolality,Calculated 300 (280-300); Potassium 3.3 mEq/L (3.5-5.1); Sodium 140 mEq/L (136-145); eGFR For Non-African Americans 51 (> 60)
--- NOTE | 2018-04-06 15:01 | Internal Med Progress Note ---
Hospitalist Progress Note - Encounter Date of Encounter: 04/06/18 Time of Encounter: 11:00 - Subjective Interval History: Patient reports feeling better this morning with IV diuresis - Exam Vitals: Temp Pulse Resp BP Pulse Ox 98.8 F 73 16 133/74 95 04/06/18 11:18 04/06/18 11:18 04/06/18 11:18 04/06/18 11:18 04/06/18 11:18 Exam: Gen.: Nonacute distress, alert and oriented 3 ENT: Mucosal membranes moist Respiratory: Lungs are clear to auscultation bilaterally without any wheezing rhonchi or rales Cardiovascular: Normal S1 and S2 regular rate rhythm no murmurs rubs or gallops Abdomen: Soft, nontender and nondistended with positive bowel sounds Extremities: No lower extremity edema Skin: Normal color - Assessment and Plan (1) Acute on chronic diastolic heart failure Current Visit: Yes Status: Acute Assessment and Plan: Patient with shortness of breath for 3 days with bilateral pedal edema and elevated BNP of 597 on admission Echocardiogram on 08/2016 showed LVEF of 55% with evidence of moderate diastolic dysfunction of left ventricle She reports that nitroglycerin gave her some relief of her symptoms. Echocardiogram pending Will continue IV Lasix 40 mg twice daily Will consult cardiology to determine if patient will need a daily regimen of by mouth Lasix on discharge (2) Coronary artery disease Current Visit: Yes Status: Chronic Assessment and Plan: Patient with a history of CABG and 5 coronary artery stents. She reports nitroglycerin gave her some relief of her symptoms of shortness of breath above. Serial troponins; continue Plavix, JONATAN inhibitor and beta barry. (3) Bronchitis Current Visit: No Status: Inactive Assessment and Plan: Patient with expiratory wheezing on exam. Leukocytosis however improving and patient afebrile Will continue by mouth Levaquin and by mouth prednisone as well as scheduled DuoNeb's (4) Atrial fibrillation Current Visit: Yes Status: Acute Assessment and Plan: Heart rate controlled; continue beta barry and oral anticoagulation with Xarelto (5) Hypertension Current Visit: No Status: Chronic Assessment and Plan: Blood pressures controlled; continue beta barry and JONATAN inhibitor (6) Morbid obesity with BMI of 50.0-59.9, adult Current Visit: No Status: Chronic Assessment and Plan: Lifestyle modifications (7) DVT prophylaxis Current Visit: No Status: Acute Assessment and Plan: Patient on Xarelto as above - Time Spent with Patient Total time spent is greater than 50% in coordination of care (as documented) at patient's floor/unit and/or counseling patient: Internal Medicine: Result - Labs CBC & Chem 7: 04/06/18 11:12 04/06/18 11:12 - ABG Interpretation ABG results: PT/INR, D-dimer PT 16.7 Seconds (9.4-12.1) H 04/04/18 16:09 D-Dimer 234 ng/mLFEU (0-500) 04/04/18 16:09 Consult Discharge Plan - Plan Referrals: Mohit Bruce DO [Primary Care Provider] - (2) Coronary artery disease Qualifiers: Coronary Disease-Associated Artery/Lesion type: bypass graft [place] vs. transplanted heart: [place] heart Associated angina: without angina Qualified Code(s): I25.810 - Atherosclerosis of coronary artery bypass graft(s) without angina pectoris (4) Atrial fibrillation Qualifiers: Atrial fibrillation type: chronic Qualified Code(s): I48.2 - Chronic atrial fibrillation (5) Hypertension Qualifiers: Hypertension type: essential hypertension Qualified Code(s): I10 - Essential (primary) hypertension
[2018-04-06] MEDS: *HR* Rivaroxaban 10 MG TABLET PO SCH (16:30)
[2018-04-06] MEDS: Benzonatate 100 MG CAPSULE PO PRN (16:31)
[2018-04-06] MEDS: Acetaminophen 325 MG TABLET PO PRN (22:36)
[2018-04-06] MEDS: Latanoprost 2.5 ML BOTTLE BOTH EYES SCH (22:37)
[2018-04-07] MEDS: Ipratropium/Albuterol Neb 3 ML IH SCH ×4 (00:11→11:09)
[2018-04-07] MEDS: predniSONE 20 MG TABLET PO SCH (09:00)
[2018-04-07] MEDS: Cholecalciferol (D-3) 1,000 UNIT TABLET PO SCH (09:00)
[2018-04-07] MEDS: levoFLOXacin 500 MG TABLET PO SCH (09:00)
[2018-04-07] MEDS: Furosemide 40 MG/4 ML VIAL IVP SCH (09:00)
[2018-04-07] MEDS: Lisinopril 20 MG TABLET PO SCH (09:00)
[2018-04-07] MEDS: Benzonatate 100 MG CAPSULE PO PRN (09:06)
[2018-04-07 10:47] LABS: Immature Granulocytes % 0.7 % (0-4)
[2018-04-07 10:48] LABS: Basophils % 0.3 %; Eosinophils # 0.2 K/mcL (0.0-0.6); Eosinophils % 1.4 %; Hemoglobin 13.1 g/dL (11.5-15.4); Lymphocytes # 2.6 K/mcL (0.6-4.6); Mean Corpuscular HGB Conc 29.8 g/dL (31.6-35.5); Mean Corpuscular Hemoglobin 26.7 pg (28.0-33.3); Mean Corpuscular Volume 89.6 fL (83.0-100.0); Mean Platelet Volume 11.2 fL (9.4-12.4); Monocytes # 0.8 K/mcL (0.0-1.3); Monocytes % 5.4 %; Neutrophils # 10.8 K/mcL (1.6-8.9); Platelet Count 260 K/mcL (140-400); Red Blood Count 4.91 M/mcL (3.82-4.97); Red Cell Distribution Width 15.2 % (11.5-14.5); Segmented Neutrophils % 74.2 %
[2018-04-07 11:18] LABS: Platelet Estimate Normal (Normal)
[2018-04-07 11:20] VITALS: BP 138/71
--- NOTE | 2018-04-07 11:20 | Electrocardiograph Report ---
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
[2018-04-07 11:56] LABS: Calcium 9.5 mg/dL (8.6-10.3); Potassium 3.7 mEq/L (3.5-5.1)
--- NOTE | 2018-04-07 12:58 | Discharge Summary ---
- NOTES TO OUTPATIENT PROVIDER Notes to Outpatient Provider: Follow-up primary care provider to monitor renal function and potassium Date of Encounter: 04/07/18 Time of Encounter: 11:00 - Discharge Diagnosis (1) Acute on chronic diastolic heart failure Priority: Primary Status: Acute (2) Coronary artery disease Priority: Primary Status: Chronic Qualifiers: Coronary Disease-Associated Artery/Lesion type: bypass graft [place] vs. transplanted heart: [place] heart Associated angina: without angina Qualified Code(s): I25.810 - Atherosclerosis of coronary artery bypass graft(s) without angina pectoris (3) Bronchitis Priority: Primary Status: Inactive (4) Atrial fibrillation Priority: Secondary Status: Acute Qualifiers: Atrial fibrillation type: chronic Qualified Code(s): I48.2 - Chronic atrial fibrillation (5) Hypertension Priority: Secondary Status: Chronic Qualifiers: Hypertension type: essential hypertension Qualified Code(s): I10 - Essential (primary) hypertension (6) Morbid obesity with BMI of 50.0-59.9, adult Priority: Secondary Status: Chronic Hospital course: Patient is a 38-year-old female with past medical history significant for active substance use disorder who engages in heroin injections, reports a history of atrial fibrillation and also a heart murmur since childhood who presents to the ER complaining of pain and swelling to her left hand. She says that about 4 days ago she noticed a lesion on the dorsum of her left index finger with a dark spot and surrounding erythema. She states that it is unrelated to IVDU but rather noticed it after picking weeds. The next day she noticed the whole finger was compromised with swelling and erythema. The day after her hand was now affected with accompanying fever and chills. Today she noticed extension of the swelling to her whole left forearm with blotches of redness extending up to her arm close to her axilla. She also now reports an inability to flex/extend her finger joints. In the ER a bedside I&D was done although it does not appear cultures were obtained. She is now admitted for further management. During patients hospital stay she signed out AMA even after the risks and benefits were explained to her. Patient admitted that she was withdrawing from heroin and needed to leave the hospital. - Time Spent with Patient Total time spent providing and/or coordinating discharge services: Less than 30 minutes - Discharge Medications Prescriptions: Atorvastatin [Lipitor] 20 mg PO HS #30 tablet levoFLOXacin [Levaquin] 500 mg PO DAILY #5 tablet Metoprolol [Lopressor] 25 mg PO BID #60 tablet Potassium Chloride 20 meq PO DAILY #30 tab.er.prt predniSONE [PredniSONE] 40 mg PO DAILY #10 tablet Home Medications: Acetaminophen/Chlorpheniramine [Coricidin Hbp Cold & Flu Tab] 2 each PO Q4HR PRN 04/04/18 [History] Cholecalciferol (D-3) [Vitamin D] 1,000 unit PO DAILY 04/04/18 [History] Clopidogrel [Plavix] 75 mg PO DAILY 04/04/18 [History] DULoxetine [Cymbalta] 30 mg PO HS 04/04/18 [History] Guaifenesin 400 mg PO BID PRN 04/04/18 [History] Latanoprost [Xalatan] 1 drop BOTH EYES HS 04/04/18 [History] Lisinopril [Zestril] 20 mg PO DAILY 04/04/18 [History] Nitroglycerin [Nitrostat] 0.4 mg SL Q5M PRN MDD [id number] CALL 911 04/04/18 [ History] Ondansetron HCl [Zofran] 4 mg PO Q8H PRN 04/04/18 [History] Rivaroxaban [Xarelto] 20 mg PO QPM 04/04/18 [History] Atorvastatin [Lipitor] 20 mg PO HS #30 tablet 04/07/18 [Rx] Metoprolol [Lopressor] 25 mg PO BID #60 tablet 04/07/18 [Rx] Potassium Chloride 20 meq PO DAILY #30 tab.er.prt 04/07/18 [Rx] levoFLOXacin [Levaquin] 500 mg PO DAILY #5 tablet 04/07/18 [Rx] predniSONE [PredniSONE] 40 mg PO DAILY #10 tablet 04/07/18 [Rx] Allergies/Adverse Reactions: 3 Allergy/AdvReac Type Severity Reaction Status Date / Time amlodipine [From Norvasc] Allergy Hives Verified 04/04/18 18:26 latex Allergy Rash Verified 04/04/18 18:26 Sulfa (Sulfonamide Allergy Itching Verified 04/04/18 18:26 Antibiotics) ibuprofen [From Motrin] AdvReac Intermediate bleeding Verified 04/04/18 18:26 Amoxicillin AdvReac See Verified 04/04/18 18:26 Comments hydrocodone [From Vicodin] AdvReac Gastrointestinal Verified 04/04/18 18:26 Upset morphine AdvReac Gastrointestinal Verified 04/04/18 18:26 Upset Oxycodone [From Percocet] AdvReac Gastrointestinal Verified 04/04/18 18:26 Upset propoxyphene AdvReac Gastrointestinal Verified 04/04/18 18:26 [From Darvocet-N] Upset Date of admission: 04/06/18 14:34 Primary care physician: Mohit Bruce DO Consults: 04/07/18 07:55 Consult to Nurse Navigator [CONS] Routine Comment: CHF - Constitutional Vitals: Temp Pulse Resp BP Pulse Ox 98.2 F 80 16 138/71 100 04/07/18 11:13 04/07/18 11:13 04/07/18 11:13 04/07/18 11:13 04/07/18 11:13 General appearance: Present: A&O X 3, no acute distress Exam: Gen.: Nonacute distress, alert and oriented 3 Respiratory: Lungs are clear to auscultation bilaterally without any wheezing rhonchi or rales - Patient Status Disposition: Home, Self-Care Condition: Good - Discharge Instructions Instructions: Acute Bronchitis (DC), Low Sodium Diet (DC), Heart Failure, Ob Nurse (GEN) Follow Up With: Mohit Bruce DO [Primary Care Provider] - 04/10/18 9:00 am (This appointment is with Devika Brock. Dr. Bruce is out of the office. ) Additional Instructions: Please get your flu shot at your follow up appointment or at your pharmacy!! :) Follow-up appointments: If there is not an appointment listed below, please call your physician and schedule a follow-up appointment. If you have congestive heart failure and your symptoms return, make an appointment with your physician. Medication List: Carry an up to date list of medications you are taking at all time. We have given you an updated medication list including any new medications that you have been prescribed. Please provide that list to your primary provider Symptoms: If your condition changes or you experience any of the following symptoms, notify your physician immediately: Unusual or worsening pain, fever, persistent nausea and vomiting, bleeding, increase in swelling (especially in your legs), sudden weight gain, extreme dizziness, chest pain, increased drainage or redness from a wound or incision. Go to the emergency department if you experience a problem with breathing. Weights: If you have a history of swelling or shortness of breath, weigh yourself daily and notify your physician if you have a weight gain of two or more pounds in one day or 5 or more pounds in a week. If you experience any of the warning signs for stroke: Sudden numbness or weakness of the face, arm or leg; especially on one side of the body, sudden confusion, trouble speaking or understanding, sudden trouble seeing in one or both eyes, sudden trouble walking, dizziness, loss of balance or coordination, sudden sever headache with no cause; Call 911 or go to the emergency room. Stroke is a medical emergency. Some risk factors for stroke: Age, cigarette smoking, diabetes, excessive alcohol consumption, family history , high blood pressure, overweight, physical inactivity, prior stroke, heart attack, diagnosis of carotid artery stenosis or other artery disease. If you smoke, STOP: Smoking or tobacco use significantly increases your risk of heart and lung disease. Your chance of disease greatly increases if you continue to smoke. For more information, call the [place] tobacco quit line for smoking cessation 0 QUIT-NOW ( )
--- NOTE | 2018-04-07 13:21 | Electrocardiograph Report ---
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
== END 2018-04-07 15:16 | disposition home or self-care (01) | DRG 292 ==
LOC: EMEROOARM 15:40 → 3BNU 15:40 → SUATTDRO 19:10 → 3BNU 20:03
PROVIDERS: ADMIT Internal Medicine; ATTEND Hospitalist

== ENCOUNTER 2019-02-14 13:15 | Observation (INO) ==
[2019-02-14] MEDS ORDERED: Aspirin 81 MG TAB.CHEW PO ONE (13:17)
--- NOTE | 2019-02-14 13:30 | Emergency Department Note ---
Disposition Clinical Impression: Chest pain Disposition: Admitted As Inpatient Condition: Fair Forms: ED Satisfaction Letter Time of Disposition: 15:00 General Adult HPI - General Chief complaint: ED Chest Pain Stated complaint: Chest Pain Time Seen by Provider: 02/14/19 13:16 Source: patient Limitations: no limitations Nursing Notes Reviewed: Yes Vital Signs Reviewed: Yes - History of Present Illness Pain Scale: 5 - Related Data Home Medications Medication Instructions Recorded Confirmed Acetaminophen/Chlorpheniramine 2 each PO Q4HR PRN 04/04/18 04/04/18 [Coricidin Hbp Cold & Flu Tab] Cholecalciferol (D-3) [Vitamin D] 1,000 unit PO DAILY 04/04/18 04/04/18 Clopidogrel [Plavix] 75 mg PO DAILY 04/04/18 04/04/18 DULoxetine [Cymbalta] 30 mg PO HS 04/04/18 04/04/18 Guaifenesin 400 mg PO BID PRN 04/04/18 04/04/18 Latanoprost [Xalatan] 1 drop BOTH EYES HS 04/04/18 04/04/18 Lisinopril [Zestril] 20 mg PO DAILY 04/04/18 04/04/18 Nitroglycerin [Nitrostat] 0.4 mg SL Q5M PRN MDD [id number] CALL 04/04/18 04/04/18 911 Ondansetron HCl [Zofran] 4 mg PO Q8H PRN 04/04/18 04/04/18 Rivaroxaban [Xarelto] 20 mg PO QPM 04/04/18 04/04/18 Previous Rx's Medication Instructions Recorded Atorvastatin [Lipitor] 20 mg PO HS #30 tablet 04/07/18 Metoprolol [Lopressor] 25 mg PO BID #60 tablet 04/07/18 Potassium Chloride 20 meq PO DAILY #30 tab.er.prt 04/07/18 levoFLOXacin [Levaquin] 500 mg PO DAILY #5 tablet 04/07/18 predniSONE [PredniSONE] 40 mg PO DAILY #10 tablet 04/07/18 Allergies Allergy/AdvReac Type Severity Reaction Status Date / Time amlodipine [From [facility]] Allergy Hives Verified 02/14/19 13:26 latex Allergy Rash Verified 02/14/19 13:26 Sulfa (Sulfonamide Allergy Itching Verified 02/14/19 13:26 Antibiotics) ibuprofen [From Motrin] AdvReac Intermediate bleeding Verified 02/14/19 13:26 Amoxicillin AdvReac See Verified 02/14/19 13:26 Comments hydrocodone [From Vicodin] AdvReac Gastrointestinal Verified 02/14/19 13:26 Upset morphine AdvReac Gastrointestinal Verified 02/14/19 13:26 Upset oxycodone [From Percocet] AdvReac Gastrointestinal Verified 02/14/19 13:26 Upset propoxyphene AdvReac Gastrointestinal Verified 02/14/19 13:26 [From Darvocet-N] Upset Past Medical History - Past Medical History Medical history: Reports: cancer, CHF, coronary artery disease, CVA, GERD, hyperlipidemia, hypertension, myocardial infarction, TIA, other Surgical history: Reports: cholecystectomy, other Psychiatric history: Reports: anxiety, bipolar, depression [employer] history: Reports: bilateral tubal ligation - Social History Smoking Status: Former smoker Smokeless Tobacco Status: No Alcohol use: Reports: occasionally Drug use: Reports: none Physical Exam - General Limitations: no limitations General appearance: alert, in no apparent distress Course - Reevaluation(s) Reevaluation #1: Patient was reevaluated. Her pain is completely resolved with nitroglycerin glycerin. Troponin still pending, the patient will be admitted to the hospital. Time: 14:27 Vital Signs Temperature 99.3 F 02/14/19 13:23 Pulse Rate 71 02/14/19 13:23 Respiratory Rate 18 02/14/19 13:23 Blood Pressure 185/79 02/14/19 13:23 O2 Sat by Pulse Oximetry 98 02/14/19 13:23 Temperature 99.3 F 02/14/19 13:23 Pulse Rate 63 02/14/19 13:48 Respiratory Rate 18 02/14/19 13:48 Blood Pressure 185/79 02/14/19 13:23 O2 Sat by Pulse Oximetry 98 02/14/19 13:48 Oxygen Delivery Oxygen Delivery Room Air Medical Decision Making - Lab Data Result diagrams: 02/14/19 14:05 02/14/19 14:05 Lab Results 02/14/19 02/14/19 02/14/19 Range/Units 14:05 14:05 14:05 WBC 7.9 (4.3-11.1) K/mcL RBC 4.35 (3.82-4.97) M/mcL Hgb 12.0 (11.5-15.4) g/dL Hct 38.2 (35.3-44.9) % MCV 87.8 (83.0-100.0) fL MCH 27.6 L (28.0-33.3) pg MCHC 31.4 L (31.6-35.5) g/dL RDW 14.4 (11.5-14.5) % Plt Count 204 (140-400) K/mcL MPV 11.2 (9.4-12.4) fL Immature Gran % 0.5 (0-4) % Seg Neutrophils % 76.6 % Lymphocytes % 15.5 % Monocytes % 5.2 % Eosinophils % 1.7 % Basophils % 0.5 % Neutrophils # 6.0 (1.6-8.9) K/mcL Lymphocytes # 1.2 (0.6-4.6) K/mcL Monocytes # 0.4 (0.0-1.3) K/mcL Eosinophils # 0.1 (0.0-0.6) K/mcL Basophils # 0.0 (0.0-0.2) K/mcL PT 18.7 H (9.4-12.1) Seconds INR 1.6 APTT 45.1 H (26.0-36.0) Seconds Sodium 139 (136-145) mEq/L Potassium 4.5 (3.5-5.1) mEq/L Chloride 104 (98-107) mEq/L Carbon Dioxide 26 (23-29) mEq/L BUN 20 (8-23) mg/dL Creatinine 1.02 (0.60-1.20) mg/dL Est GFR ( Amer) > 60 (> 60) Est GFR (Non-Af Amer) 54 L (> 60) BUN/Creatinine Ratio 20 (6-26) Glucose 117 H (70-105) mg/dL Calculated Osmolality 292 (280-300) Calcium 9.2 (8.6-10.3) mg/dL Troponin I < 0.03 (< 0.04) ng/mL B-Natriuretic Peptide (Less than 100) pg/mL 02/14/19 Range/Units 14:05 WBC (4.3-11.1) K/mcL RBC (3.82-4.97) M/mcL Hgb (11.5-15.4) g/dL Hct (35.3-44.9) % MCV (83.0-100.0) fL MCH (28.0-33.3) pg MCHC (31.6-35.5) g/dL RDW (11.5-14.5) % Plt Count (140-400) K/mcL MPV (9.4-12.4) fL Immature Gran % (0-4) % Seg Neutrophils % % Lymphocytes % % Monocytes % % Eosinophils % % Basophils % % Neutrophils # (1.6-8.9) K/mcL Lymphocytes # (0.6-4.6) K/mcL Monocytes # (0.0-1.3) K/mcL Eosinophils # (0.0-0.6) K/mcL Basophils # (0.0-0.2) K/mcL PT (9.4-12.1) Seconds INR APTT (26.0-36.0) Seconds Sodium (136-145) mEq/L Potassium (3.5-5.1) mEq/L Chloride (98-107) mEq/L Carbon Dioxide (23-29) mEq/L BUN (8-23) mg/dL Creatinine (0.60-1.20) mg/dL Est GFR ( Amer) (> 60) Est GFR (Non-Af Amer) (> 60) BUN/Creatinine Ratio (6-26) Glucose (70-105) mg/dL Calculated Osmolality (280-300) Calcium (8.6-10.3) mg/dL Troponin I (< 0.04) ng/mL B-Natriuretic Peptide 294 H (Less than 100) pg/mL Attestation Statement - Attestation Attestation: I examined this patient and my medical decision-making was reviewed with the Resident Physician. I agree with the documented findings, disposition and treatment plan as described except to the extent set forth below. Patient to the ED with a chief complaint of chest heaviness. Patient describes a pressure in the center of her chest. Onset 4 days ago. It was associated with some nausea, weakness, sweating. Patient has extensive cardiac history including multiple stents and CABG. She states this feels different. On exam she is in no distress with clear lungs. Heart regular rate and rhythm. Plan. Cardiac workup. Nitroglycerin trial. Patient is admitted to the hospitalist. EKG was reviewed with the resident. Chest X-Ray 02/14/19 13:17 IMPRESSION: Negative portable study. D/ / Pina Tao Cha, MD / Pina Tao Cha, MD Interpreting Provider: Pina Tao Cha, MD
--- NOTE | 2019-02-14 13:31 | Emergency Department Note ---
Disposition Clinical Impression: Chest pain Qualifiers: Chest pain type: unspecified Qualified Code(s): R07.9 - Chest pain, unspecified Disposition: Admitted As Inpatient Forms: ED Satisfaction Letter Time of Disposition: 14:59 Chest Pain HPI - General Stated Complaint: Chest Pain Time Seen by Provider: 02/14/19 13:16 Source: patient Mode of arrival: private vehicle Limitations: no limitations Vital Signs Reviewed: Yes Nursing Notes Reviewed: Yes - History of Present Illness HPI Narrative: Patient is a 69-year-old female with a past medical history including paroxysmal atrial fibrillation, prior CVA on Xarelto, coronary artery disease status post multiple stent placements, CABG on Plavix and aspirin, hypertension, or cancer with right upper extremity lymphedema, presenting with chief complaint of chest pain for the last 4 days. The patient states 4 days ago, she suddenly developed left sided burning chest pain. She states it was not associated with eating. She states since then, she complains of constant left-sided chest pressure that intermittently radiates into her left arm and up into her mouth. She states it was most severe yesterday. She was too afraid to take nitroglycerin as her diastolic blood pressure number was not in the 40s. She states it is not associated with exertion. Today she states throughout the day she has been i ntermittently diaphoretic with the pain. She also has nausea but no vomiting. She denies shortness breath, fevers or chills, cough, abdominal pain, diarrhea. She states she has not experienced this pain before. It is different than her prior chest pain with her MIs. She states she has a history of GERD and has been taking Tums and her acid reflux medication without improvement in the pain. Severity scale (1-10): 5 - Related Data Home Medications Medication Instructions Recorded Confirmed Acetaminophen/Chlorpheniramine 2 each PO Q4HR PRN 04/04/18 04/04/18 [Coricidin Hbp Cold & Flu Tab] Cholecalciferol (D-3) [Vitamin D] 1,000 unit PO DAILY 04/04/18 04/04/18 Clopidogrel [Plavix] 75 mg PO DAILY 04/04/18 04/04/18 DULoxetine [Cymbalta] 30 mg PO HS 04/04/18 04/04/18 Guaifenesin 400 mg PO BID PRN 04/04/18 04/04/18 Latanoprost [Xalatan] 1 drop BOTH EYES HS 04/04/18 04/04/18 Lisinopril [Zestril] 20 mg PO DAILY 04/04/18 04/04/18 Nitroglycerin [Nitrostat] 0.4 mg SL Q5M PRN MDD [id number] CALL 04/04/18 04/04/18 911 Ondansetron HCl [Zofran] 4 mg PO Q8H PRN 04/04/18 04/04/18 Rivaroxaban [Xarelto] 20 mg PO QPM 04/04/18 04/04/18 Previous Rx's Medication Instructions Recorded Atorvastatin [Lipitor] 20 mg PO HS #30 tablet 04/07/18 Metoprolol [Lopressor] 25 mg PO BID #60 tablet 04/07/18 Potassium Chloride 20 meq PO DAILY #30 tab.er.prt 04/07/18 levoFLOXacin [Levaquin] 500 mg PO DAILY #5 tablet 04/07/18 predniSONE [PredniSONE] 40 mg PO DAILY #10 tablet 04/07/18 Allergies Allergy/AdvReac Type Severity Reaction Status Date / Time amlodipine [From Norvasc] Allergy Hives Verified 02/14/19 13:26 latex Allergy Rash Verified 02/14/19 13:26 Sulfa (Sulfonamide Allergy Itching Verified 02/14/19 13:26 Antibiotics) ibuprofen [From Motrin] AdvReac Intermediate bleeding Verified 02/14/19 13:26 Amoxicillin AdvReac See Verified 02/14/19 13:26 Comments hydrocodone [From Vicodin] AdvReac Gastrointestinal Verified 02/14/19 13:26 Upset morphine AdvReac Gastrointestinal Verified 02/14/19 13:26 Upset oxycodone [From Percocet] AdvReac Gastrointestinal Verified 02/14/19 13:26 Upset propoxyphene AdvReac Gastrointestinal Verified 02/14/19 13:26 [From Darvocet-N] Upset All systems ED: reviewed and negative except as stated. Review of Systems: As Per HPI Constitutional: Denies: fever, chills Cardiovascular: Reports: chest pain. Denies: palpitations Respiratory: Denies: cough, dyspnea Gastrointestinal: Reports: nausea. Denies: abdominal pain, vomiting, diarrhea Genitourinary: Denies: dysuria Neurological: Denies: headache, weakness Chest Pain PMH - Past Medical History Medical history: Reports: cancer, CHF, coronary artery disease, CVA, GERD, hyperlipidemia, hypertension, myocardial infarction, TIA, other Surgical history: Reports: cholecystectomy, other Psychiatric history: Reports: anxiety, bipolar, depression [employer] history: Reports: bilateral tubal ligation - Social History Smoking Status: Former smoker Alcohol use: Reports: occasionally Drug use: Reports: none Physical Exam - General Limitations: no limitations General appearance: alert, in no apparent distress - Head Head exam: atraumatic, normocephalic - Eye Eye exam: Present: normal appearance, EOMI - ENT ENT exam: normal exam, normal oropharynx - Neck Neck exam: Present: normal inspection, trachea midline - Chest Chest inspection: Present: normal inspection, symmetric chest wall rise. Absent: tenderness - Respiratory Respiratory exam: Present: normal lung sounds bilaterally. Absent: respiratory distress, wheezes - Cardiovascular Cardiovascular exam: Present: regular rate, normal rhythm, other (Bilateral radial and dorsalis pedis pulses are equal and palpable) - Abdominal Exam Abdominal exam: Present: soft, Non-Tender. Absent: distention - Extremities Exam Extremities exam: Present: full ROM, normal capillary refill, other (Bilateral 2+ lower extremity swelling). Absent: calf tenderness - Neurological Exam Neurological exam: Present: alert, oriented X3 - Psychiatric Psychiatric exam: Present: normal affect, normal mood - Skin Skin exam: Present: warm, dry. Absent: diaphoresis, pallor Course Vital Signs Temperature 99.3 F 02/14/19 13:23 Pulse Rate 71 02/14/19 13:23 Respiratory Rate 18 02/14/19 13:23 Blood Pressure 185/79 02/14/19 13:23 O2 Sat by Pulse Oximetry 98 02/14/19 13:23 Temperature 99.3 F 02/14/19 13:23 Pulse Rate 63 02/14/19 13:48 Respiratory Rate 18 02/14/19 13:48 Blood Pressure 185/79 02/14/19 13:23 O2 Sat by Pulse Oximetry 98 02/14/19 13:48 Oxygen Delivery Oxygen Delivery Room Air Chest Pain - MDM Narrative Medical decision making narrative: Patient has a significant history of coronary artery disease and congestive heart failure with chest pain for the past 4 days. Vitals are within normal limits. We will give her aspirin and try nitroglycerin trial. EKG appears unchanged from her prior without any acute ischemic changes. We will obtain ACS workup. Anticipate admission giving her significant amount of risk factors. 14:30 Discussed with patient and he is chest pain free with one nitroglycerin. Troponin pending 14:45 Troponin <0.03. Patient remains chest pain free. Hospitalist paged for admission 14:55 Hopitalist, Dr. Crump, accepts admission - Medical Records Medical records reviewed: Yes I reviewed the patient's medical records. - Lab Data Lab results reviewed: Yes I reviewed the patient's lab results. Result diagrams: 02/14/19 14:05 02/14/19 14:05 Lab Results 02/14/19 02/14/19 02/14/19 Range/Units 14:05 14:05 14:05 WBC 7.9 (4.3-11.1) K/mcL RBC 4.35 (3.82-4.97) M/mcL Hgb 12.0 (11.5-15.4) g/dL Hct 38.2 (35.3-44.9) % MCV 87.8 (83.0-100.0) fL MCH 27.6 L (28.0-33.3) pg MCHC 31.4 L (31.6-35.5) g/dL RDW 14.4 (11.5-14.5) % Plt Count 204 (140-400) K/mcL MPV 11.2 (9.4-12.4) fL Immature Gran % 0.5 (0-4) % Seg Neutrophils % 76.6 % Lymphocytes % 15.5 % Monocytes % 5.2 % Eosinophils % 1.7 % Basophils % 0.5 % Neutrophils # 6.0 (1.6-8.9) K/mcL Lymphocytes # 1.2 (0.6-4.6) K/mcL Monocytes # 0.4 (0.0-1.3) K/mcL Eosinophils # 0.1 (0.0-0.6) K/mcL Basophils # 0.0 (0.0-0.2) K/mcL PT 18.7 H (9.4-12.1) Seconds INR 1.6 APTT 45.1 H (26.0-36.0) Seconds Sodium 139 (136-145) mEq/L Potassium 4.5 (3.5-5.1) mEq/L Chloride 104 (98-107) mEq/L Carbon Dioxide 26 (23-29) mEq/L BUN 20 (8-23) mg/dL Creatinine 1.02 (0.60-1.20) mg/dL Est GFR ( Amer) > 60 (> 60) Est GFR (Non-Af Amer) 54 L (> 60) BUN/Creatinine Ratio 20 (6-26) Glucose 117 H (70-105) mg/dL Calculated Osmolality 292 (280-300) Calcium 9.2 (8.6-10.3) mg/dL Troponin I < 0.03 (< 0.04) ng/mL B-Natriuretic Peptide (Less than 100) pg/mL 02/14/19 Range/Units 14:05 WBC (4.3-11.1) K/mcL RBC (3.82-4.97) M/mcL Hgb (11.5-15.4) g/dL Hct (35.3-44.9) % MCV (83.0-100.0) fL MCH (28.0-33.3) pg MCHC (31.6-35.5) g/dL RDW (11.5-14.5) % Plt Count (140-400) K/mcL MPV (9.4-12.4) fL Immature Gran % (0-4) % Seg Neutrophils % % Lymphocytes % % Monocytes % % Eosinophils % % Basophils % % Neutrophils # (1.6-8.9) K/mcL Lymphocytes # (0.6-4.6) K/mcL Monocytes # (0.0-1.3) K/mcL Eosinophils # (0.0-0.6) K/mcL Basophils # (0.0-0.2) K/mcL PT (9.4-12.1) Seconds INR APTT (26.0-36.0) Seconds Sodium (136-145) mEq/L Potassium (3.5-5.1) mEq/L Chloride (98-107) mEq/L Carbon Dioxide (23-29) mEq/L BUN (8-23) mg/dL Creatinine (0.60-1.20) mg/dL Est GFR ( Amer) (> 60) Est GFR (Non-Af Amer) (> 60) BUN/Creatinine Ratio (6-26) Glucose (70-105) mg/dL Calculated Osmolality (280-300) Calcium (8.6-10.3) mg/dL Troponin I (< 0.04) ng/mL B-Natriuretic Peptide 294 H (Less than 100) pg/mL - Radiology Data Radiology results reviewed: Yes I reviewed the patient's radiology results. Chest X-Ray 02/14/19 13:17 IMPRESSION: Negative portable study. D/ / Pina Tao Cha, MD / Pina Tao Cha, MD Interpreting Provider: Pina Tao Cha, MD - EKG Data EKG attestation: Yes I reviewed and interpreted this EKG. EKG results narrative: EKG obtained at 1323 shows sinus rhythm with heart rate 71, OR interval 205, QRS duration 150, QTC 458, supraventricular bigeminy with a right bundle branch block, much artifact is noted, no ST elevation, no ST depression, compared to old EKG on 04/05/2018 which shows no new changes. Heart Score - Score History: Moderately Suspicious EKG: Non Specific repolarisation Disturbance Age: 45-65 Risk Factors: Equal/Greater than 3 risk factor or history of atherosclerotic disease Troponin: Less than normal limit HEART Score Total: 5
[2019-02-14] MEDS: Nitroglycerin 0.4 MG TAB.SUBL SL PRN ×2 (13:44→21:07)
[2019-02-14 14:19] LABS: Basophils % 0.5 %; Eosinophils # 0.1 K/mcL (0.0-0.6); Eosinophils % 1.7 %; Hematocrit 38.2 % (35.3-44.9); Immature Granulocytes % 0.5 % (0-4); Lymphocytes # 1.2 K/mcL (0.6-4.6); Lymphocytes % 15.5 %; Mean Corpuscular HGB Conc 31.4 g/dL (31.6-35.5); Mean Corpuscular Hemoglobin 27.6 pg (28.0-33.3); Mean Corpuscular Volume 87.8 fL (83.0-100.0); Mean Platelet Volume 11.2 fL (9.4-12.4); Monocytes # 0.4 K/mcL (0.0-1.3); Monocytes % 5.2 %; Platelet Count 204 K/mcL (140-400); Red Blood Count 4.35 M/mcL (3.82-4.97); Red Cell Distribution Width 14.4 % (11.5-14.5); Segmented Neutrophils % 76.6 %; White Blood Count 7.9 K/mcL (4.3-11.1)
[2019-02-14 14:28] LABS: INR 1.6; Prothrombin Time 18.7 Seconds (9.4-12.1)
[2019-02-14 14:30] LABS: Activated Partial Thrombo Time 45.1 Seconds (26.0-36.0)
[2019-02-14 14:41] LABS: BUN/Creatinine Ratio 20 (6-26); Blood Urea Nitrogen 20 mg/dL (8-23); Calcium 9.2 mg/dL (8.6-10.3); Carbon Dioxide 26 mEq/L (23-29); Chloride 104 mEq/L (98-107); Glucose 117 mg/dL (70-105); Osmolality,Calculated 292 (280-300); Potassium 4.5 mEq/L (3.5-5.1); Sodium 139 mEq/L (136-145); Troponin I < 0.03 ng/mL (< 0.04); eGFR For African Americans > 60 (> 60); eGFR For Non-African Americans 54 (> 60)
--- NOTE | 2019-02-14 14:58 | Internal Med History&Physical ---
Date of Encounter: 02/14/19 Time of Encounter: 14:58 Internal Medicine - H&P: HPI History of present illness: Ms. Longoria is a 69 year old female with PMH of paroxysmal atrial fibrillation, prior CVA on chronic anticoagulation with Xarelto, coronary artery disease status post multiple stent placements, CABG on Plavix and aspirin, hypertension and cancer who is presenting the ER with several days history of left sided chest pain burning in character with no radiation, no exacerbation factors or elevating factors associated with nausea with no vomiting. She denies SOB, diaphoresis, orthopnea, PND, or progressive worsening of LE edema. The patient was evaluated by the ER staff and ECG has no significant abnormalities and cardiac enzyms first set was normal, the patient was admitted for further evaluation and management. Past Med Surg Social Fam HX - Past Medical History Medical history: cancer, CHF, coronary artery disease, CVA, GERD, hyperlipidemia, hypertension, myocardial infarction, TIA, other Additional medical history: right breast cancer Psychiatric history: anxiety, bipolar, depression - Past Surgical History Surgical History: cholecystectomy, other Additional surgical history: bilateral masectomy, back sx. Left lung resection - Social History Smoking Status: Former smoker Smokeless Tobacco Status: No Alcohol use: occasionally Drug use: none - Family History Father Living Status: Hx Family Cardiac Disorders: Yes Internal Medicine - H&P: Meds Cholecalciferol (D-3) [Vitamin D] 1,000 unit PO DAILY 04/04/18 [History] Clopidogrel [Plavix] 75 mg PO DAILY 04/04/18 [History] DULoxetine [Cymbalta] 60 mg PO HS 04/04/18 [History] Latanoprost [Xalatan] 1 drop BOTH EYES HS 04/04/18 [History] Lisinopril [Zestril] 20 mg PO DAILY 04/04/18 [History] Nitroglycerin [Nitrostat] 0.4 mg SL Q5M PRN MDD [id number] CALL 911 04/04/18 [History] Ondansetron HCl [Zofran] 4 mg PO Q8H PRN 04/04/18 [History] Rivaroxaban [Xarelto] 20 mg PO QPM 04/04/18 [History] Metoprolol [Lopressor] 25 mg PO BID #60 tablet 04/07/18 [Rx] Acetaminophen [Tylenol] 325 mg PO Q6HR PRN 02/14/19 [History] Furosemide [Lasix] 40 mg PO DAILY PRN 02/14/19 [History] Gabapentin [Gralise] 300 mg PO DAILY PRN 02/14/19 [History] Dicyclomine [Bentyl] 10 mg PO QID PRN 02/15/19 [History] Allergy/AdvReac Type Severity Reaction Status Date / Time amlodipine [From Norvasc] Allergy Hives Verified 02/14/19 13:26 latex Allergy Rash Verified 02/14/19 13:26 Sulfa (Sulfonamide Allergy Itching Verified 02/14/19 13:26 Antibiotics) ibuprofen [From Motrin] AdvReac Intermediate bleeding Verified 02/14/19 13:26 Amoxicillin AdvReac See Verified 02/14/19 13:26 Comments hydrocodone [From Vicodin] AdvReac Gastrointestinal Verified 02/14/19 13:26 Upset morphine AdvReac Gastrointestinal Verified 02/14/19 13:26 Upset oxycodone [From Percocet] AdvReac Gastrointestinal Verified 02/14/19 13:26 Upset propoxyphene AdvReac Gastrointestinal Verified 02/14/19 13:26 [From Darvocet-N] Upset All Systems PM: A 10-system review of systems was performed and is negative for pertinent fin dings except as documented above in the HPI. - Constitutional Vitals: Temp Pulse Resp BP Pulse Ox 99.3 F 63 18 185/79 98 02/14/19 13:23 02/14/19 13:48 02/14/19 13:48 02/14/19 13:23 02/14/19 13:48 General appearance: Present: A&O X 3 Exam: ` - Head Head exam: Present: atraumatic, normocephalic - Neck Neck exam general surgery: Present: supple, trachea midline. Absent: lymphadenopathy - Respiratory Respiratory exam: Present: CTAB. Absent: accessory muscle use, rales, rhonchi, wheezes - Cardiovascular Cardiovascular exam: Present: RRR, +S1, +S2. Absent: diastolic murmur, gallop, rubs, systolic murmur - GI/Abdominal GI/Abdominal exam: Present: normal bowel sounds, soft, no peritoneal signs. Absent: distended, tenderness - Extremities Exam Extremities exam: Present: warm, radial pulses palpable and symmetrical. Absent: calf tenderness, cyanotic, pedal edema Additional comments: Edema of the right UE Internal Med - H&P Results - Labs CBC & Chem 7: 02/17/19 01:28 02/17/19 01:28 Labs: Short CBC 02/14/19 Range/Units 14:05 WBC 7.9 (4.3-11.1) K/mcL Hgb 12.0 (11.5-15.4) g/dL Hct 38.2 (35.3-44.9) % Plt Count 204 (140-400) K/mcL Neutrophils # 6.0 (1.6-8.9) K/mcL BMP 02/14/19 14:05 Sodium 139 Potassium 4.5 Chloride 104 Carbon Dioxide 26 BUN 20 Creatinine 1.02 Glucose 117 H Calcium 9.2 Cardiac Enzymes 02/14/19 Range/Units 14:05 Troponin I < 0.03 (< 0.04) ng/mL - Impressions ITS Impressions Chest X-Ray 02/14/19 13:17 IMPRESSION: Negative portable study. D/ / Pina Tao Cha, MD / Pina Tao Cha, MD Interpreting Provider: Pina Tao Cha, MD - Assessment and Plan (1) Chest pain Status: Acute Assessment and plan: - Chest pain R/O JAMMIE DD *Muskuloskeletal CP - myofascial strain, costochondritis *GERD *Esophageal spasm *Pericarditis - unlikely *Pneumonia - no infiltrate on CXR PLAN: - cardiac enzymes x 2 q 8 hr - EKG now and in AM - ASA - O2 by NC to keep SpO2 greater than 92% - UA - Urine toxic screen - CBCD, BMP in AM - Fasting lipids - Tylenol 650 mg PO q 4-6 hr PRN headache - 2D Echo Qualifiers: Chest pain type: unspecified Qualified Code(s): R07.9 - Chest pain, unspecified (2) Atrial fibrillation Status: Chronic Assessment and plan: Cont. chronic anticoagulation Qualifiers: Atrial fibrillation type: chronic Qualified Code(s): I48.2 - Chronic atrial fibrillation (3) Congestive heart failure Status: Chronic Assessment and plan: No evidence of exacerbation, cont home meds. Qualifiers: Heart failure type: diastolic Heart failure chronicity: acute on chronic Qualified Code(s): I50.33 - Acute on chronic diastolic (congestive) heart failure (4) DVT prophylaxis Status: Acute (5) Coronary artery disease Status: Chronic Assessment and plan: We will cont. Home meds Qualifiers: Coronary Disease-Associated Artery/Lesion type: bypass graft [place] vs. transplanted heart: [place] heart Associated angina: without angina Qualified Code(s): I25.810 - Atherosclerosis of coronary artery bypass graft(s) without angina pectoris (6) Hypertension Status: Chronic Assessment and plan: We will cont. home meds. Qualifiers: Hypertension type: essential hypertension Qualified Code(s): I10 - Essential (primary) hypertension (7) Morbid obesity with BMI of 50.0-59.9, adult Status: Chronic - Time Spent With Patient Total time spent is greater than 50% in coordination of care (as documented) at patient's floor/unit and/or counseling patient:
[2019-02-14] MEDS ORDERED: Naloxone 0.4 MG/ML INJ IVP PRN (17:27)
[2019-02-14] MEDS: *HR* Rivaroxaban 10 MG TABLET PO SCH (21:29)
[2019-02-15 01:45] LABS: Basophils % 0.5 %; Eosinophils # 0.2 K/mcL (0.0-0.6); Hematocrit 37.1 % (35.3-44.9); Hemoglobin 11.7 g/dL (11.5-15.4); Immature Granulocytes % 0.4 % (0-4); Lymphocytes # 1.6 K/mcL (0.6-4.6); Lymphocytes % 20.3 %; Mean Corpuscular HGB Conc 31.5 g/dL (31.6-35.5); Mean Corpuscular Hemoglobin 28.1 pg (28.0-33.3); Mean Platelet Volume 11.4 fL (9.4-12.4); Monocytes # 0.5 K/mcL (0.0-1.3); Monocytes % 5.8 %; Neutrophils # 5.7 K/mcL (1.6-8.9); Platelet Count 203 K/mcL (140-400); Red Blood Count 4.17 M/mcL (3.82-4.97); Red Cell Distribution Width 14.6 % (11.5-14.5); White Blood Count 8.1 K/mcL (4.3-11.1)
[2019-02-15 01:52] LABS: INR 2.2; Prothrombin Time 24.8 Seconds (9.4-12.1)
[2019-02-15 01:55] LABS: Activated Partial Thrombo Time 48.3 Seconds (26.0-36.0)
[2019-02-15 02:04] LABS: Albumin 3.9 g/dL (3.5-5.7); Albumin/Globulin Ratio 1.6 (1.1-2.2); Bilirubin,Total 0.6 mg/dL (0.3-1.0); Calcium 9.2 mg/dL (8.6-10.3); Chol/HDL Ratio 5.3 (0-4.9); Globulin 2.5 g/dL (2.4-3.5); Magnesium 2.2 mg/dL (1.6-2.6); Phosphorous 3.8 mg/dL (2.7-4.5); Potassium 3.8 mEq/L (3.5-5.1); Total Protein 6.4 g/dL (6.4-8.9)
[2019-02-15] MEDS ORDERED: Nitroglycerin 0.4 MG TAB.SUBL SL PRN (04:09)
[2019-02-15] MEDS ORDERED: Gabapentin 300 MG CAPSULE PO PRN (04:09)
[2019-02-15] MEDS ORDERED: Furosemide 40 MG TABLET PO PRN (04:09)
--- NOTE | 2019-02-15 11:07 | Internal Med Progress Note ---
Hospitalist Progress Note - Encounter Date of Encounter: 02/15/19 Time of Encounter: 11:05 - Subjective Interval History: Ms. Longoria is a 69 year old female with PMH of paroxysmal atrial fibrillation, prior CVA on chronic anticoagulation with Xarelto, coronary artery disease status post multiple stent placements, CABG on Plavix and aspirin, hypertension and cancer who is presenting the ER with several days history of left sided chest pain burning in character with no radiation, no exacerbation factors associated with nausea with no vomiting. Serial troponin was negative, EKG has no acute ST-T change. Because of complicated history of cardiac disease, cardiology was consulted. She was seen and examined in the room. She reported absence of chest pain currently. She also denies shortness of breath, palpitation, or lightheadedness. - Exam Vitals: Temp Pulse Resp BP Pulse Ox 97.9 F 80 16 166/93 96 02/15/19 10:51 02/15/19 10:51 02/15/19 10:51 02/15/19 10:51 02/15/19 10:51 Exam: PHYSICAL EXAMINATION: GENERAL APPEARANCE: The patient is alert, oriented and in no acute distress. HEENT: Head is normocephalic. The sinuses are nontender. Pupils are equal and reactive. The nares are patent. Oropharynx clear without lesions. NECK: Supple without lymphadenopathy. HEART: Regular rate and rhythm. LUNGS: No crackles or wheezes are heard. ABDOMEN: Soft, nontender, nondistended with good bowel sounds heard. Inguinal area is normal. EXTREMITIES: Without cyanosis, clubbing or edema. NEUROLOGICAL: Gross nonfocal. SKIN: Warm and dry without any rash. - Assessment and Plan (1) Chest pain Current Visit: Yes Status: Acute Assessment and Plan: 02/14 - Chest pain R/O JAMMIE DD *Muskuloskeletal CP - myofascial strain, costochondritis *GERD *Esophageal spasm *Pericarditis - unlikely *Pneumonia - no infiltrate on CXR PLAN: - cardiac enzymes x 2 q 8 hr - EKG now and in AM - ASA - O2 by NC to keep SpO2 greater than 92% - UA - Urine toxic screen - CBCD, BMP in AM - Fasting lipids - Tylenol 650 mg PO q 4-6 hr PRN headache - 2D Echo 02/15 Serial troponin was negative. EKG has no acute ST-T change. Patient currently chest pain-free. Because of complicated cardiac disease history, cardiology was consulted, appreciate help. Pending echocardiogram. (2) Hypertension Current Visit: No Status: Chronic Assessment and Plan: BP currently not well controlled, we will adjust medication accordingly. (3) Coronary artery disease Current Visit: No Status: Chronic Assessment and Plan: Serial troponin was negative, EKG has no acute ST-T changes. Pending echocardiogram. Audiology consulted, appreciate help. (4) DVT prophylaxis Current Visit: Yes Status: Acute Assessment and Plan: Patient on Eliquis. (5) Morbid obesity with BMI of 50.0-59.9, adult Current Visit: No Status: Chronic Assessment and Plan: Weight control discussed with patient. (6) Congestive heart failure Current Visit: No Status: Chronic Assessment and Plan: No evidence of exacerbation, cont home meds. (7) Atrial fibrillation Current Visit: No Status: Chronic Assessment and Plan: Rate controlled, continue home meds including metoprolol, cont. chronic anticoagulation - Time Spent with Patient Total time spent is greater than 50% in coordination of care (as documented) at patient's floor/unit and/or counseling patient: Greater than 35 minutes Plan of Care Discussed with: patient Internal Medicine: Result - Labs CBC & Chem 7: 02/15/19 00:13 02/15/19 00:13 Labs: Short CBC 02/14/19 02/15/19 Range/Units 14:05 00:13 WBC 7.9 8.1 (4.3-11.1) K/mcL Hgb 12.0 11.7 (11.5-15.4) g/dL Hct 38.2 37.1 (35.3-44.9) % Plt Count 204 203 (140-400) K/mcL Neutrophils # 6.0 5.7 (1.6-8.9) K/mcL BMP 02/14/19 02/15/19 14:05 00:13 Sodium 139 137 Potassium 4.5 3.8 Chloride 104 103 Carbon Dioxide 26 25 BUN 20 24 H Creatinine 1.02 1.18 Glucose 117 H 135 H Calcium 9.2 9.2 Cardiac Enzymes 02/14/19 02/14/19 02/15/19 Range/Units 14:05 17:43 00:13 Troponin I < 0.03 < 0.03 < 0.03 (< 0.04) ng/mL 02/15/19 Range/Units 05:33 Troponin I < 0.03 (< 0.04) ng/mL Liver Function 02/15/19 Range/Units 00:13 Total Bilirubin 0.6 (0.3-1.0) mg/dL AST 11 L (13-39) Units/L ALT 9 (7-52) Units/L Alkaline Phosphatase 64 (34-104) Units/L Albumin 3.9 (3.5-5.7) g/dL - ABG Interpretation ABG results: PT/INR, D-dimer PT 24.8 Seconds (9.4-12.1) H 02/15/19 00:13 - Impressions Impressions Chest X-Ray 02/14/19 13:17 IMPRESSION: Negative portable study. D/ / Pina Tao Cha, MD / Pina Tao Cha, MD Interpreting Provider: Pina Tao Cha, MD Consult Discharge Plan - Plan Referrals: Laura Nunes, [employer]IC [Primary Care Provider] - (1) Chest pain Qualifiers: Chest pain type: unspecified Qualified Code(s): R07.9 - Chest pain, unspecified (2) Hypertension Qualifiers: Hypertension type: essential hypertension Qualified Code(s): I10 - Essential (primary) hypertension (3) Coronary artery disease Qualifiers: Coronary Disease-Associated Artery/Lesion type: bypass graft [place] vs. transplanted heart: [place] heart Associated angina: without angina Qualified Code(s): I25.810 - Atherosclerosis of coronary artery bypass graft(s) without angina pectoris (6) Congestive heart failure Qualifiers: Heart failure type: diastolic Heart failure chronicity: acute on chronic Qualified Code(s): I50.33 - Acute on chronic diastolic (congestive) heart sivannate pena (7) Atrial fibrillation Qualifiers: Atrial fibrillation type: chronic Qualified Code(s): I48.2 - Chronic atrial fibrillation
[2019-02-15] MEDS: Cholecalciferol (D-3) 1,000 UNIT (25MCG) TABLET PO SCH (11:22)
[2019-02-15] MEDS: Lisinopril 20 MG TABLET PO SCH (11:22)
--- NOTE | 2019-02-15 12:28 | Cardiology Consult Note ---
Date of Encounter: 02/15/19 Time of Encounter: 12:25 Assessment and Plan (1) Chest pain Current Visit: No Status: Resolved Atypical presentation during rest occurred for many hours and resolve spontaneously on excellent medical management. We will proceed with chemical stress test to rule out ischemia. Patient currently resting comfortably and chest pain-free Qualifiers: Chest pain type: unspecified Qualified Code(s): R07.9 - Chest pain, unspecified (2) Coronary artery disease Current Visit: No Status: Chronic History of remote CABG with occluded vein graft to the right PDA according to records. Patient unsure of findings of her last LHC through [facility]. Will obtain to review records meanwhile patient will have noninvasive risk stratification for ischemia Qualifiers: Coronary Disease-Associated Artery/Lesion type: bypass graft [place] vs. transplanted heart: [place] heart Associated angina: without angina Qualified Code(s): I25.810 - Atherosclerosis of coronary artery bypass graft(s) without angina pectoris (3) Atrial fibrillation Current Visit: No Status: Chronic History of CVA in the past currently on Xarelto for stroke risk reduction. Consider holding Xarelto and starting heparin in 24 hours in anticipation of possible LHC. Qualifiers: Atrial fibrillation type: chronic Qualified Code(s): I48.2 - Chronic atrial fibrillation Discussion w patient/family: The assessment and plan as outlined above was discussed with the patient and/or family members who expressed understanding and agreement. All questions were answered. Thank you for involving us in the care of your patient. Please call with any questions. History of Present Illness Consult date: 02/15/19 Consult reason: Chest Pain Chief complaint: Chest Pain History of present illness: Ms. Longoria is a 69 year old female with multiple comorbidities and cardiac risk factors status post-CABG here with chest pain described as retrosternal burning type pain. Last LHC 5 years ago which according to patient was unremarkable performed at an outside hospital possibly [facility]. She has atrial fibrillation for which she is on Xarelto and compliant with her medications status post CVA in the past. EKG shows nonspecific ST changes, cardiac enzymes are unremarkable. Risks benefits and alternatives of a noninvasive ischemic workup were discussed with the patient and she agrees to proceed. Past Med Surg Social Fam HX - Past Medical History Medical history: cancer, CHF, coronary artery disease, CVA, GERD, hyperlipidemia, hypertension, myocardial infarction, TIA, other Additional medical history: right breast cancer Psychiatric history: anxiety, bipolar, depression - Past Surgical History Surgical History: cholecystectomy, other Additional surgical history: bilateral masectomy, back sx. Left lung resection - Social History Smoking Status: Former smoker Smokeless Tobacco Status: No Alcohol use: occasionally Drug use: none - Family History Father Living Status: Hx Family Cardiac Disorders: Yes Medications and Allergies Cholecalciferol (D-3) [Vitamin D] 1,000 unit PO DAILY 04/04/18 [History] Clopidogrel [Plavix] 75 mg PO DAILY 04/04/18 [History] DULoxetine [Cymbalta] 60 mg PO HS 04/04/18 [History] Latanoprost [Xalatan] 1 drop BOTH EYES HS 04/04/18 [History] Lisinopril [Zestril] 20 mg PO DAILY 04/04/18 [History] Nitroglycerin [Nitrostat] 0.4 mg SL Q5M PRN MDD [id number] CALL 911 04/04/18 [History] Ondansetron HCl [Zofran] 4 mg PO Q8H PRN 04/04/18 [History] Rivaroxaban [Xarelto] 20 mg PO QPM 04/04/18 [History] Metoprolol [Lopressor] 25 mg PO BID #60 tablet 04/07/18 [Rx] Acetaminophen [Tylenol] 325 mg PO Q6HR PRN 02/14/19 [History] Furosemide [Lasix] 40 mg PO DAILY PRN 02/14/19 [History] Gabapentin [Gralise] 300 mg PO DAILY PRN 02/14/19 [History] Allergy/AdvReac Type Severity Reaction Status Date / Time amlodipine [From Norvasc] Allergy Hives Verified 02/14/19 13:26 latex Allergy Rash Verified 02/14/19 13:26 Sulfa (Sulfonamide Allergy Itching Verified 02/14/19 13:26 Antibiotics) ibuprofen [From Motrin] AdvReac Intermediate bleeding Verified 02/14/19 13:26 Amoxicillin AdvReac See Verified 02/14/19 13:26 Comments hydrocodone [From Vicodin] AdvReac Gastrointestinal Verified 02/14/19 13:26 Upset morphine AdvReac Gastrointestinal Verified 02/14/19 13:26 Upset oxycodone [From Percocet] AdvReac Gastrointestinal Verified 02/14/19 13:26 Upset propoxyphene AdvReac Gastrointestinal Verified 02/14/19 13:26 [From Dardong-N] Upset All Systems Review: The remainder of the systems were reviewed and are negative Physical Examination Vital Signs, Last 4 Hours Temp Pulse Resp BP Pulse Ox 02/15/19 10:51 97.9 F 80 16 166/93 96 General: Conversant, No Apparent Distress HEENT: Atraumatic, Normocephaly, Mucus Membranes Moist Neck: No JVD, Normal carotid pulses Cardiac: Reg Rate and Rhythm, Normal S1 and S2, No Murmur Lungs: Normal Breath Sounds, No Wheeze, Rales, Rhonchi Neuro: Alert and responsive, No focal deficits noted Abdomen: Soft, Non-Tender Skin: No rashes noted on visualized skin Musculoskeletal: No Chest Wall Tenderness Extremities: No Clubbing, No Cyanosis, No Edema, Normal Pulses Results 02/15/19 00:13 02/15/19 00:13 Lab Results 02/14/19 02/14/19 02/14/19 14:05 14:05 14:05 WBC 7.9 Hgb 12.0 Hct 38.2 Plt Count 204 INR 1.6 APTT 45.1 H Sodium 139 Potassium 4.5 Chloride 104 Carbon Dioxide 26 BUN 20 Creatinine 1.02 Glucose 117 H Calcium 9.2 Magnesium Total Bilirubin AST ALT Alkaline Phosphatase Troponin I < 0.03 B-Natriuretic Peptide 02/14/19 02/14/19 02/15/19 14:05 17:43 00:13 WBC Hgb Hct Plt Count INR APTT Sodium Potassium Chloride Carbon Dioxide BUN Creatinine Glucose Calcium Magnesium Total Bilirubin AST ALT Alkaline Phosphatase Troponin I < 0.03 < 0.03 B-Natriuretic Peptide 294 H 02/15/19 02/15/19 02/15/19 00:13 00:13 00:13 WBC 8.1 Hgb 11.7 Hct 37.1 Plt Count 203 INR 2.2 APTT 48.3 H Sodium 137 Potassium 3.8 Chloride 103 Carbon Dioxide 25 BUN 24 H Creatinine 1.18 Glucose 135 H Calcium 9.2 Magnesium 2.2 Total Bilirubin 0.6 AST 11 L ALT 9 Alkaline Phosphatase 64 Troponin I B-Natriuretic Peptide 02/15/19 05:33 WBC Hgb Hct Plt Count INR APTT Sodium Potassium Chloride Carbon Dioxide BUN Creatinine Glucose Calcium Magnesium Total Bilirubin AST ALT Alkaline Phosphatase Troponin I < 0.03 B-Natriuretic Peptide Consult Discharge Plan - Plan Referrals: Laura Nunes CNP [Primary Care Provider] -
[2019-02-15] MEDS: *HR* Rivaroxaban 10 MG TABLET PO SCH (17:19)
[2019-02-15] MEDS: Latanoprost 2.5 ML BOTTLE BOTH EYES SCH (19:51)
[2019-02-15] MEDS ORDERED: *HR* Rivaroxaban 10 MG TABLET PO SCH (20:49)
[2019-02-16 04:55] LABS: Hematocrit 41.5 % (35.3-44.9); Hemoglobin 12.7 g/dL (11.5-15.4); Mean Corpuscular HGB Conc 30.6 g/dL (31.6-35.5); Mean Corpuscular Volume 88.3 fL (83.0-100.0); Mean Platelet Volume 11.2 fL (9.4-12.4); Platelet Count 194 K/mcL (140-400); Red Cell Distribution Width 14.5 % (11.5-14.5); White Blood Count 7.8 K/mcL (4.3-11.1)
[2019-02-16 05:13] LABS: Calcium 9.4 mg/dL (8.6-10.3); Potassium 4.1 mEq/L (3.5-5.1)
[2019-02-16] MEDS ORDERED: Regadenoson 0.4 MG/5 ML SYRINGE IVP ONE (07:52)
--- NOTE | 2019-02-16 08:29 | Cardiology Progress Note ---
Date of Encounter: 02/16/19 Time of Encounter: 08:00 Assessment and Plan (1) Chest pain Current Visit: Yes Status: Acute Per Cardiology: Troponins negative 4. Currently chest pain-free. Qualifiers: Chest pain type: unspecified Qualified Code(s): R07.9 - Chest pain, unspecified (2) Coronary artery disease Current Visit: No Status: Chronic Per Cardiology: Per Dr. Mcrae: "History of remote CABG with occluded vein graft to the right PDA according to records. Patient unsure of findings of her last LHC through [facility]. Will obtain to review records meanwhile patient will have noninvasive risk stratification for ischemia". Echo showed EF preserved at 6065%. Today on exercise nuclear stress test pending. We will attempt to evaluate medical records if received. Chest pain- free. On Plavix, JONATAN inhibitor, beta barry. Not on asa. Is on Xarelto as well. Qualifiers: Coronary Disease-Associated Artery/Lesion type: bypass graft [place] vs. transplanted heart: [place] heart Associated angina: without angina Qualified Code(s): I25.810 - Atherosclerosis of coronary artery bypass graft(s) without angina pectoris (3) Atrial fibrillation Current Visit: No Status: Chronic Per Cardiology: Hx afib. rate controlled in 60's and 70's. History of CVA in the past currently on Xarelto for stroke risk reduction. Qualifiers: Atrial fibrillation type: chronic Qualified Code(s): I48.2 - Chronic atrial fibrillation (4) Hypertension Current Visit: No Status: Chronic Per Cardiology: Hypertensive today. Give am meds. Consider titration. Qualifiers: Hypertension type: essential hypertension Qualified Code(s): I10 - Essential (primary) hypertension Discussion w patient/family: The assessment and plan as outlined above was discussed with the patient and/or family members who expressed understanding and agreement. All questions were answered. Thank you for involving us in the care of your patient. Please call with any questions. Subjective Principal diagnosis: CP, hx CAD Interval history: Seen today during stress test. Denied any chest pain overnight. She did experience some nausea and vomiting prior to stress test and during stress test today. No chest pain during stress test. Objective Vital Signs, Last 4 Hours Temp Pulse Resp BP Pulse Ox 02/16/19 06:47 98.3 F 76 18 190/87 95 General: Conversant, No Apparent Distress HEENT: Atraumatic, Normocephaly, Mucus Membranes Moist Neck: No JVD, Normal carotid pulses Cardiac: Reg Rate and Rhythm, Normal S1 and S2, No Murmur Lungs: Normal Breath Sounds, No Wheeze, Rales, Rhonchi Neuro: Alert and responsive, No focal deficits noted Abdomen: Soft, Non-Tender Skin: No rashes noted on visualized skin Musculoskeletal: No Chest Wall Tenderness Extremities: No Clubbing, No Cyanosis, No Edema, Normal Pulses Results 02/16/19 04:20 02/16/19 04:20 Lab Results Laboratory Tests 02/14/19 02/14/19 02/14/19 14:05 14:05 17:43 Hgb Hct Creatinine Est GFR (Non-Af Amer) Magnesium AST ALT Troponin I < 0.03 < 0.03 B-Natriuretic Peptide 294 H LDL Cholesterol, Calc 02/15/19 02/15/19 02/15/19 00:13 00:13 05:33 Hgb Hct Creatinine Est GFR (Non-Af Amer) Magnesium 2.2 AST 11 L ALT 9 Troponin I < 0.03 < 0.03 B-Natriuretic Peptide LDL Cholesterol, Calc 197 H 02/16/19 02/16/19 04:20 04:20 Hgb 12.7 Hct 41.5 Creatinine 1.14 Est GFR (Non-Af Amer) 47 L Magnesium AST ALT Troponin I B-Natriuretic Peptide LDL Cholesterol, Calc ITS Impressions Chest X-Ray 02/14/19 13:17 IMPRESSION: Negative portable study. D/ / Pina Tao Cha, MD / Pina Tao Cha, MD Interpreting Provider: Pina Tao Cha, MD Echocardiogram 02/15/19 03:55 Impressions: LVEF 60-65%. Moderate concentric left ventricular hypertrophy. Mild left ventricular diastolic dysfunction. No significant valvular dysfunction No evidence of pulmonary hypertension. Left Ventricular Wall Motion: Rest Echo Findings All wall segments showed normal motion. Findings: Study Quality * Technically sub-optimal due to poor echocardiographic windows. ECG Findings * Normal sinus rhythm. Left Ventricle * LVEF 60-65%. * Normal LV chamber size, and systolic function. * Moderate concentric left ventricular hypertrophy. * Mild left ventricular diastolic dysfunction. * Atypical septal motion consistent with post-operative status. Right Ventricle * Not well visualized Left Atrium * Normal left atrial size. Right Atrium * Normal right atrial size. Interatrial Septum * Interatrial septum not well evaluated. Aortic Valve * Trileaflet aortic valve. * Moderately sclerotic aortic valve leaflets. * No aortic stenosis. Mitral Valve * Moderate mitral annular calcification * No mitral stenosis. * No mitral regurgitation. Tricuspid Valve * Trace tricuspid regurgitation. * No evidence of pulmonary hypertension. * No tricuspid stenosis. * Normal tricuspid valve structure. Pulmonic Valve * Pulmonic valve not well visualized. Aorta * Normally sized aortic root. Pericardium * The pericardium appears normal. IVC * The IVC is dilated. Pulmonary Artery * Pulmonary artery not well visualized. Active Medications Clopidogrel Bisulfate (Plavix) 75 mg PO DAILY [facility] Stop: 08/17/19 09:01 Last Admin: 02/15/19 11:22 Dose: 75 mg Documented by: Duloxetine HCl (Cymbalta) 60 mg PO HS [facility] Stop: 08/17/19 21:01 Last Admin: 02/15/19 19:50 Dose: 60 mg Documented by: Furosemide (Lasix) 40 mg PO DAILY PRN PRN Reason: Edema Stop: 08/17/19 04:10 Gabapentin (Neurontin) 300 mg PO DAILY PRN PRN Reason: pain Latanoprost (Xalatan) 1 drop BOTH EYES [facility]; Protocol Stop: 08/17/19 21:01 Last Admin: 02/15/19 19:51 Dose: 1 drop Documented by: Lisinopril (Zestril) 20 mg PO DAILY [facility]; Protocol Stop: 08/17/19 09:01 Last Admin: 02/15/19 11:22 Dose: 20 mg Documented by: Metoprolol Tartrate (Lopressor) 25 mg PO BID [facility] Stop: 08/16/19 21:01 Last Admin: 02/15/19 19:50 Dose: 25 mg Documented by: Naloxone HCl (Narcan) 0.4 mg IVP Q2MPRN PRN PRN Reason: SEE COMMENTS Stop: 08/16/19 17:28 Nitroglycerin (Nitroglycerin) 0.4 mg SL Q5MPRN PRN PRN Reason: Chest Pain Stop: 08/16/19 13:32 Last Admin: 02/14/19 21:07 Dose: 0.4 mg Documented by: Nitroglycerin (Nitroglycerin) 0.4 mg SL Q5M PRN PRN Reason: Chest Pain Stop: 08/17/19 04:10 Ondansetron HCl (Zofran) 4 mg IVP Q8HR PRN PRN Reason: Nausea And Vomiting Stop: 08/16/19 17:28 Rivaroxaban (Xarelto) 20 mg PO QPM [facility] Stop: 08/16/19 21:16 Last Admin: 02/15/19 17:19 Dose: 20 mg Documented by: Vitamin D (Vitamin D) 1,000 unit PO DAILY [facility] Stop: 08/17/19 09:01 Last Admin: 02/15/19 11:22 Dose: 1,000 unit Documented by: - Imaging and Cardiology Stress Test: pending Echo: report reviewed Consult Discharge Plan - Plan Referrals: Laura Nunes, PODIATRIC MEDICINE DOCTOR [Primary Care Provider] -
[2019-02-16] MEDS: Lisinopril 20 MG TABLET PO SCH (09:56)
[2019-02-16] MEDS: Cholecalciferol (D-3) 1,000 UNIT (25MCG) TABLET PO SCH (09:56)
[2019-02-16] MEDS: Ondansetron 4 MG/2 ML VIAL IVP PRN ×2 (10:03→20:05)
--- NOTE | 2019-02-16 12:35 | Internal Med Progress Note ---
Hospitalist Progress Note - Encounter Date of Encounter: 02/16/19 Time of Encounter: 12:33 - Subjective Interval History: Ms. Longoria is a 69 year old female with PMH of paroxysmal atrial fibrillation, prior CVA on chronic anticoagulation with Xarelto, coronary artery disease status post multiple stent placements, CABG on Plavix and aspirin, hypertension and cancer who is presenting the ER with several days history of left sided chest pain burning in character with no radiation, no exacerbation factors associated with nausea with no vomiting. Serial troponin was negative, EKG has no acute ST-T change. Because of complicated history of cardiac disease, cardiology was consulted. She was seen and examined in the room. She reported absence of chest pain currently. She also denies shortness of breath, palpitation, or lightheadedness. - Exam Vitals: Temp Pulse Resp BP Pulse Ox 97.7 F 61 16 145/84 92 02/16/19 11:09 02/16/19 11:09 02/16/19 11:09 02/16/19 11:09 02/16/19 11:09 Exam: PHYSICAL EXAMINATION: GENERAL APPEARANCE: The patient is alert, oriented and in no acute distress. HEENT: Head is normocephalic. The sinuses are nontender. Pupils are equal and reactive. The nares are patent. Oropharynx clear without lesions. NECK: Supple without lymphadenopathy. HEART: Regular rate and rhythm. LUNGS: No crackles or wheezes are heard. ABDOMEN: Soft, nontender, nondistended with good bowel sounds heard. Inguinal area is normal. EXTREMITIES: Without cyanosis, clubbing or edema. NEUROLOGICAL: Gross nonfocal. SKIN: Warm and dry without any rash. - Assessment and Plan (1) Chest pain Current Visit: Yes Status: Acute Assessment and Plan: 02/14 - Chest pain R/O JAMMIE DD *Muskuloskeletal CP - myofascial strain, costochondritis *GERD *Esophageal spasm *Pericarditis - unlikely *Pneumonia - no infiltrate on CXR PLAN: - cardiac enzymes x 2 q 8 hr - EKG now and in AM - ASA - O2 by NC to keep SpO2 greater than 92% - UA - Urine toxic screen - CBCD, BMP in AM - Fasting lipids - Tylenol 650 mg PO q 4-6 hr PRN headache - 2D Echo 02/15 Serial troponin was negative. EKG has no acute ST-T change. Patient currently chest pain-free. Because of complicated cardiac disease history, cardiology was consulted, appreciate help. Pending echocardiogram. 02/16 ECHO: LVEF 60-65%. Moderate concentric left ventricular hypertrophy. Mild left ventricular diastolic dysfunction. No significant valvular dysfunction No evidence of pulmonary hypertension. No chest pain currently. Pending stress test. Cardiology following, appreciate hlp. (2) Hypertension Current Visit: No Status: Chronic Assessment and Plan: BP currently not well controlled, metoprolol dose adjusted. (3) Coronary artery disease Current Visit: No Status: Chronic Assessment and Plan: Serial troponin was negative, EKG has no acute ST-T changes. Pending stress test. Cardiology consulted, appreciate help. (4) DVT prophylaxis Current Visit: Yes Status: Acute Assessment and Plan: Patient on Eliquis. (5) Morbid obesity with BMI of 50.0-59.9, adult Current Visit: No Status: Chronic Assessment and Plan: Weight control discussed with patient. (6) Congestive heart failure Current Visit: No Status: Chronic Assessment and Plan: No evidence of exacerbation, cont home meds. (7) Atrial fibrillation Current Visit: No Status: Chronic Assessment and Plan: Rate controlled, continue home meds including metoprolol, cont. chronic anticoagulation - Time Spent with Patient Total time spent is greater than 50% in coordination of care (as documented) at patient's floor/unit and/or counseling patient: Greater than 35 minutes Plan of Care Discussed with: patient Internal Medicine: Result - Labs CBC & Chem 7: 02/16/19 04:20 02/16/19 04:20 Labs: Short CBC 02/16/19 Range/Units 04:20 WBC 7.8 (4.3-11.1) K/mcL Hgb 12.7 (11.5-15.4) g/dL Hct 41.5 (35.3-44.9) % Plt Count 194 (140-400) K/mcL BMP 02/16/19 04:20 Sodium 136 Potassium 4.1 Chloride 104 Carbon Dioxide 24 BUN 22 Creatinine 1.14 Glucose 132 H Calcium 9.4 - ABG Interpretation ABG results: PT/INR, D-dimer PT 24.8 Seconds (9.4-12.1) H 02/15/19 00:13 - Impressions Impressions Echocardiogram 02/15/19 03:55 Impressions: LVEF 60-65%. Moderate concentric left ventricular hypertrophy. Mild left ventricular diastolic dysfunction. No significant valvular dysfunction No evidence of pulmonary hypertension. Left Ventricular Wall Motion: Rest Echo Findings All wall segments showed normal motion. Findings: Study Quality * Technically sub-optimal due to poor echocardiographic windows. ECG Findings * Normal sinus rhythm. Left Ventricle * LVEF 60-65%. * Normal LV chamber size, and systolic function. * Moderate concentric left ventricular hypertrophy. * Mild left ventricular diastolic dysfunction. * Atypical septal motion consistent with post-operative status. Right Ventricle * Not well visualized Left Atrium * Normal left atrial size. Right Atrium * Normal right atrial size. Interatrial Septum * Interatrial septum not well evaluated. Aortic Valve * Trileaflet aortic valve. * Moderately sclerotic aortic valve leaflets. * No aortic stenosis. Mitral Valve * Moderate mitral annular calcification * No mitral stenosis. * No mitral regurgitation. Tricuspid Valve * Trace tricuspid regurgitation. * No evidence of pulmonary hypertension. * No tricuspid stenosis. * Normal tricuspid valve structure. Pulmonic Valve * Pulmonic valve not well visualized. Aorta * Normally sized aortic root. Pericardium * The pericardium appears normal. IVC * The IVC is dilated. Pulmonary Artery * Pulmonary artery not well visualized. Consult Discharge Plan - Plan Referrals: Laura Nunes, IT ADMINISTRATOR [Primary Care Provider] - (1) Chest pain Qualifiers: Chest pain type: unspecified Qualified Code(s): R07.9 - Chest pain, unspecified (2) Hypertension Qualifiers: Hypertension type: essential hypertension Qualified Code(s): I10 - Essential (primary) hypertension (3) Coronary artery disease Qualifiers: Coronary Disease-Associated Artery/Lesion type: bypass graft [place] vs. transplanted heart: [place] heart Associated angina: without angina Qualified Code(s): I25.810 - Atherosclerosis of coronary artery bypass graft(s) without angina pectoris (6) Congestive heart failure Qualifiers: Heart failure type: diastolic Heart failure chronicity: acute on chronic Qualified Code(s): I50.33 - Acute on chronic diastolic (congestive) heart failure (7) Atrial fibrillation Qualifiers: Atrial fibrillation type: chronic Qualified Code(s): I48.2 - Chronic atrial fibrillation
[2019-02-16] MEDS: *HR* Rivaroxaban 10 MG TABLET PO SCH (16:53)
[2019-02-16] MEDS: Latanoprost 2.5 ML BOTTLE BOTH EYES SCH (20:05)
--- NOTE | 2019-02-17 00:10 | Electrocardiograph Report ---
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
--- NOTE | 2019-02-17 00:14 | Electrocardiograph Report ---
[facility] [employer] Test Date: 2019-02-15 Pat Name: Amelia Longoria Department: 113 Room: 3B47 Gender: F [employer] Advisor: : 1950 Requested By: Yesika Crump Order Number: [id number] Reading MD: Waylon Cuellar Measurements Intervals [place] Rate: 62 P: 22 [place]: 210 QRS: 3 QRSD: 162 T: 35 QT: 409 QTc: 415 Interpretive Statements SINUS RHYTHM WITH FIRST DEGREE AV BLOCK RIGHT BUNDLE BRANCH BLOCK [120+ ms QRS DURATION, UPRIGHT V1, 40+ ms S IN I/aVL/V4/V5/V6] Electronically Signed On 02-17-2019 0:12:20 EDT by Waylon Cuellar
[2019-02-17 02:20] LABS: Hematocrit 41.7 % (35.3-44.9); Hemoglobin 13.1 g/dL (11.5-15.4); Mean Corpuscular HGB Conc 31.4 g/dL (31.6-35.5); Mean Corpuscular Volume 89.1 fL (83.0-100.0); Mean Platelet Volume 11.1 fL (9.4-12.4); Platelet Count 203 K/mcL (140-400); Red Blood Count 4.68 M/mcL (3.82-4.97); Red Cell Distribution Width 14.7 % (11.5-14.5); White Blood Count 8.5 K/mcL (4.3-11.1)
[2019-02-17 02:43] LABS: Calcium 9.5 mg/dL (8.6-10.3)
[2019-02-17 07:40] VITALS: BP 131/78
--- NOTE | 2019-02-17 08:05 | Cardiology Progress Note ---
Date of Encounter: 02/17/19 Time of Encounter: 08:05 Assessment and Plan (1) Chest pain Current Visit: Yes Status: Acute Per Cardiology: Troponins negative 4. Currently chest pain-free. Qualifiers: Chest pain type: unspecified Qualified Code(s): R07.9 - Chest pain, unspecified (2) Coronary artery disease Current Visit: No Status: Chronic Per Cardiology: Hx CABG. No medical records received. Echo showed EF preserved at 60-65%. Chest pain-free. On Plavix, JONATAN inhibitor, beta barry. Not on asa. Is on Xarelto as well. Awaiting two day stress test results. Qualifiers: Coronary Disease-Associated Artery/Lesion type: bypass graft [place] vs. transplanted heart: [place] heart Associated angina: without angina Qualified Code(s): I25.810 - Atherosclerosis of coronary artery bypass graft(s) without angina pectoris (3) Atrial fibrillation Current Visit: No Status: Chronic Per Cardiology: Hx afib. rate controlled in 60's and 70's. History of CVA in the past currently on Xarelto for stroke risk reduction. Qualifiers: Atrial fibrillation type: chronic Qualified Code(s): I48.2 - Chronic atrial fibrillation (4) Hypertension Current Visit: No Status: Chronic Per Cardiology: Better controlled systolically in the 130s to 150s. Qualifiers: Hypertension type: essential hypertension Qualified Code(s): I10 - Essential (primary) hypertension Discussion w patient/family: The assessment and plan as outlined above was discussed with the patient and/or family members who expressed understanding and agreement. All questions were answered. Thank you for involving us in the care of your patient. Please call with any questions. Subjective Principal diagnosis: CP, hx CAD Interval history: Denies any concerns or complaints overnight. Denies any chest pain, short of breath, palpitations. Denies any recurrent nausea or vomiting. Objective Vital Signs, Last 4 Hours Temp Pulse Resp BP Pulse Ox 02/17/19 07:14 98.4 F 72 17 131/78 95 General: Conversant, No Apparent Distress HEENT: Atraumatic, Normocephaly, Mucus Membranes Moist Neck: No JVD, Normal carotid pulses Cardiac: Reg Rate and Rhythm, Normal S1 and S2, No Murmur Lungs: Normal Breath Sounds, No Wheeze, Rales, Rhonchi Neuro: Alert and responsive, No focal deficits noted Abdomen: Soft, Non-Tender Skin: No rashes noted on visualized skin Musculoskeletal: No Chest Wall Tenderness Extremities: No Clubbing, No Cyanosis, No Edema, Normal Pulses Results 02/17/19 01:28 02/17/19 01:28 Lab Results 02/17/19 02/17/19 01: 01:28 WBC 8.5 Hgb 13.1 Hct 41.7 Plt Count 203 Sodium 140 Potassium 4.0 Chloride 103 Carbon Dioxide 26 BUN 24 H Creatinine 1.15 Glucose 125 H Calcium 9.5 - Imaging and Cardiology Stress Test: pending Echo: report reviewed Consult Discharge Plan - Plan Referrals: Laura Nunes, TRANSMISSION REPAIRER [Primary Care Provider] - (Appointment has been requested.)
[2019-02-17] MEDS: Lisinopril 20 MG TABLET PO SCH (08:09)
[2019-02-17] MEDS: Cholecalciferol (D-3) 1,000 UNIT (25MCG) TABLET PO SCH (08:09)
--- NOTE | 2019-02-17 11:45 | Event Note ---
Date of Encounter: 02/17/19 Time of Encounter: 11:45 - Cardiology Event Note Perfusion imaging negative for ischemia or infarct. Cardiology signing off, reconsult as needed, follow-up arranged.
--- NOTE | 2019-02-17 12:47 | Discharge Summary ---
- NOTES TO OUTPATIENT PROVIDER Notes to Outpatient Provider: f/u with PCP within 2 weeks. Orders not resulted at time of discharge: Pending orders 02/15/19 04:00 Urinalysis reflex Microscopic [URIN] AM 0400 Date of Encounter: 02/17/19 Time of Encounter: 12:43 - Discharge Diagnosis (1) Chest pain Priority: Primary Status: Acute Qualifiers: Chest pain type: unspecified Qualified Code(s): R07.9 - Chest pain, unspecified (2) Hypertension Priority: Secondary Status: Chronic Qualifiers: Hypertension type: essential hypertension Qualified Code(s): I10 - Essential (primary) hypertension (3) Coronary artery disease Priority: Secondary Status: Chronic Qualifiers: Coronary Disease-Associated Artery/Lesion type: bypass graft [place] vs. transplanted heart: [place] heart Associated angina: without angina Qualified Code(s): I25.810 - Atherosclerosis of coronary artery bypass graft(s) without angina pectoris (4) DVT prophylaxis Priority: Primary Status: Acute (5) Morbid obesity with BMI of 50.0-59.9, adult Priority: Secondary Status: Chronic (6) Congestive heart failure Priority: Secondary Status: Chronic Qualifiers: Heart failure type: diastolic Heart failure chronicity: acute on chronic Qualified Code(s): I50.33 - Acute on chronic diastolic (congestive) heart failure (7) Atrial fibrillation Priority: Secondary Status: Chronic Qualifiers: Atrial fibrillation type: chronic Qualified Code(s): I48.2 - Chronic atrial fibrillation Hospital course: Ms. Longoria is a 69 year old female with PMH of paroxysmal atrial fibrillation, prior CVA on chronic anticoagulation with Xarelto, coronary artery disease status post multiple stent placements, CABG on Plavix and aspirin, hypertension and cancer who is presenting the ER with several days history of left sided chest pain burning in character with no radiation, no exacerbation factors or elevating factors associated with nausea with no vomiting. She denies SOB, diaphoresis, orthopnea, PND, or progressive worsening of LE edema. The patient was evaluated by the ER staff and ECG has no significant abnormalities and cardiac enzyms first set was normal, the patient was admitted for further evalu ation and management. Serial troponin was negative. EKG has no acute ST-T change. Stress test and echocardiogram were both unremarkable. Cardiology was consulted, recommended continue medical management. Patient is discharged home today, follow-up with PCP as scheduled. Discharge discussed with: patient Time spent discussing smoking cessation with patient: more than 10 minutes - Time Spent with Patient Total time spent providing and/or coordinating discharge services: Time spent: Greater than 30 minutes - Discharge Medications Prescriptions: Continued Cholecalciferol (D-3) [Vitamin D] 1,000 unit PO DAILY Latanoprost [Xalatan] 1 drop BOTH EYES HS Clopidogrel [Plavix] 75 mg PO DAILY Ondansetron HCl [Zofran] 4 mg PO Q8H PRN PRN Reason: Nausea Nitroglycerin [Nitrostat] 0.4 mg SL Q5M PRN MDD [id number] CALL 911 PRN Reason: Chest Pain Lisinopril [Zestril] 20 mg PO DAILY Rivaroxaban [Xarelto] 20 mg PO QPM DULoxetine [Cymbalta] 60 mg PO HS Metoprolol [Lopressor] 25 mg PO BID #60 tablet Acetaminophen [Tylenol] 325 mg PO Q6HR PRN PRN Reason: Pain Gabapentin [Gralise] 300 mg PO DAILY PRN PRN Reason: pain Furosemide [Lasix] 40 mg PO DAILY PRN PRN Reason: Edema Dicyclomine [Bentyl] 10 mg PO QID PRN PRN Reason: "stomach pain" Home Medications: Cholecalciferol (D-3) [Vitamin D] 1,000 unit PO DAILY 04/04/18 [History] Clopidogrel [Plavix] 75 mg PO DAILY 04/04/18 [History] DULoxetine [Cymbalta] 60 mg PO HS 04/04/18 [History] Latanoprost [Xalatan] 1 drop BOTH EYES HS 04/04/18 [History] Lisinopril [Zestril] 20 mg PO DAILY 04/04/18 [History] Nitroglycerin [Nitrostat] 0.4 mg SL Q5M PRN MDD [id number] CALL 911 04/04/18 [History] Ondansetron HCl [Zofran] 4 mg PO Q8H PRN 04/04/18 [History] Rivaroxaban [Xarelto] 20 mg PO QPM 04/04/18 [History] Metoprolol [Lopressor] 25 mg PO BID #60 tablet 04/07/18 [Rx] Acetaminophen [Tylenol] 325 mg PO Q6HR PRN 02/14/19 [History] Furosemide [Lasix] 40 mg PO DAILY PRN 02/14/19 [History] Gabapentin [Gralise] 300 mg PO DAILY PRN 02/14/19 [History] Dicyclomine [Bentyl] 10 mg PO QID PRN 02/15/19 [History] Allergies/Adverse Reactions: Allergy/AdvReac Type Severity Reaction Status Date / Time amlodipine [From Norvasc] Allergy Hives Verified 02/14/19 13:26 latex Allergy Rash Verified 02/14/19 13:26 Sulfa (Sulfonamide Allergy Itching Verified 02/14/19 13:26 Antibiotics) ibuprofen [From Motrin] AdvReac Intermediate bleeding Verified 02/14/19 13:26 Amoxicillin AdvReac See Verified 02/14/19 13:26 Comments hydrocodone [From Vicodin] AdvReac Gastrointestinal Verified 02/14/19 13:26 Upset morphine AdvReac Gastrointestinal Verified 02/14/19 13:26 Upset oxycodone [From Percocet] AdvReac Gastrointestinal Verified 02/14/19 13:26 Upset propoxyphene AdvReac Gastrointestinal Verified 02/14/19 13:26 [From Darvocet-N] Upset Date of admission: 02/14/19 15:47 Primary care physician: Laura Nunes CNP Consults: 02/15/19 08:06 Consult to Cardiology [CONS] Routine Comment: Consulting Provider: Cardiology [place] Reason for Consult: CP Call Completed: Yes Anticipated date of discharge: 02/17/19 - Constitutional Vitals: Temp Pulse Resp BP Pulse Ox 98.3 F 64 16 131/78 95 02/17/19 11:00 02/17/19 11:00 02/17/19 11:00 02/17/19 07:14 02/17/19 11:00 General appearance: Present: A&O X 3 Exam: PHYSICAL EXAMINATION: GENERAL APPEARANCE: The patient is alert, oriented and in no acute distress. HEENT: Head is normocephalic. The sinuses are nontender. Pupils are equal and reactive. The nares are patent. Oropharynx clear without lesions. NECK: Supple without lymphadenopathy. HEART: Regular rate and rhythm. LUNGS: No crackles or wheezes are heard. ABDOMEN: Soft, nontender, nondistended with good bowel sounds heard. Inguinal area is normal. EXTREMITIES: Without cyanosis, clubbing or edema. NEUROLOGICAL: Gross nonfocal. SKIN: Warm and dry without any rash. - Patient Status Disposition: Home, Self-Care Condition: Fair Functional capacity at discharge: independent ambulation Overall status at discharge: patient is progressing back to baseline - Discharge Instructions Follow Up With: Laura Nunes CNP [Primary Care Provider] - (Appointment has been requested.) - Diet and Activity Activity: increase activity as tolerated Diet: low fat, low cholesterol, low salt diet
== END 2019-02-17 14:41 | disposition home or self-care (01) ==
LOC: 3BNU 13:15 → EMEROOARM 13:15 → 3BNU 16:15
PROVIDERS: ADMIT Internal Medicine Nephrology; ATTEND Internal Medicine Nephrology

== ENCOUNTER 2019-05-06 19:52 | Inpatient (IN) ==
[2019-05-06 22:47] LABS: Basophils % 0.1 %; Eosinophils % 0.1 %; Hematocrit 36.9 % (35.3-44.9); Immature Granulocytes % 0.6 % (0-4); Lymphocytes # 0.7 K/mcL (0.6-4.6); Lymphocytes % 5.1 %; Mean Corpuscular HGB Conc 32.5 g/dL (31.6-35.5); Mean Corpuscular Hemoglobin 28.7 pg (28.0-33.3); Mean Corpuscular Volume 88.3 fL (83.0-100.0); Mean Platelet Volume 11.5 fL (9.4-12.4); Monocytes # 0.5 K/mcL (0.0-1.3); Monocytes % 3.4 %; Platelet Count 249 K/mcL (140-400); Red Blood Count 4.18 M/mcL (3.82-4.97); Red Cell Distribution Width 14.5 % (11.5-14.5); Segmented Neutrophils % 90.7 %; White Blood Count 14.3 K/mcL (4.3-11.1)
[2019-05-06 22:52] LABS: INR 2.4; Prothrombin Time 27.2 Seconds (9.4-12.1)
[2019-05-06] MEDS ORDERED: *HR* Labetalol 20 MG/4 ML SYRINGE IVP ONE (23:03)
[2019-05-06 23:11] LABS: Alanine Aminotransferase 16 Units/L (7-52); Albumin/Globulin Ratio 1.7 (1.1-2.2); Alkaline Phosphatase 74 Units/L (34-104); Aspartate Amino Transferase 16 Units/L (13-39); BUN/Creatinine Ratio 23 (6-26); Blood Urea Nitrogen 18 mg/dL (8-23); Calcium 9.2 mg/dL (8.6-10.3); Carbon Dioxide 26 mEq/L (23-29); Chloride 106 mEq/L (98-107); Globulin 2.4 g/dL (2.4-3.5); Glucose 118 mg/dL (70-105); Magnesium 1.9 mg/dL (1.6-2.6); Osmolality,Calculated 295 (280-300); Sodium 141 mEq/L (136-145); Total Protein 6.4 g/dL (6.4-8.9); eGFR For African Americans > 60 (> 60); eGFR For Non-African Americans > 60 (> 60)
[2019-05-06 23:14] LABS: Troponin I 0.34 ng/mL (< 0.04)
[2019-05-06] MEDS: Nitroglycerin 0.4 MG TAB.SUBL SL PRN (23:17)
[2019-05-07] MEDS ORDERED: Morphine Sulfate 2 MG/ML SYRINGE IVP PRN (00:23)
[2019-05-07] MEDS ORDERED: Naloxone 0.4 MG/ML INJ IVP PRN (00:23)
[2019-05-07] MEDS ORDERED: Ringers Solution, Lactated 1,000 ML IVC SCH (00:30)
[2019-05-07] MEDS ORDERED: *HR* HYDROmorphone (PF) 1 MG/ML SYRINGE IVP ONE (01:25)
[2019-05-07 04:29] LABS: Basophils % 0.2 %; Eosinophils % 0.3 %; Hematocrit 34.6 % (35.3-44.9); Hemoglobin 10.6 g/dL (11.5-15.4); Immature Granulocytes % 0.5 % (0-4); Lymphocytes # 1.3 K/mcL (0.6-4.6); Mean Corpuscular HGB Conc 30.6 g/dL (31.6-35.5); Mean Corpuscular Hemoglobin 27.9 pg (28.0-33.3); Mean Corpuscular Volume 91.1 fL (83.0-100.0); Mean Platelet Volume 11.2 fL (9.4-12.4); Monocytes # 0.8 K/mcL (0.0-1.3); Monocytes % 5.7 %; Neutrophils # 11.9 K/mcL (1.6-8.9); Platelet Count 200 K/mcL (140-400); Red Cell Distribution Width 14.5 % (11.5-14.5); Segmented Neutrophils % 84.3 %; White Blood Count 14.2 K/mcL (4.3-11.1)
[2019-05-07 04:48] LABS: BUN/Creatinine Ratio 21 (6-26); Blood Urea Nitrogen 17 mg/dL (8-23); Calcium 8.9 mg/dL (8.6-10.3); Carbon Dioxide 29 mEq/L (23-29); Chloride 105 mEq/L (98-107); Glucose 120 mg/dL (70-105); Osmolality,Calculated 293 (280-300); Potassium 3.5 mEq/L (3.5-5.1); Sodium 140 mEq/L (136-145); eGFR For African Americans > 60 (> 60); eGFR For Non-African Americans > 60 (> 60)
[2019-05-07] MEDS ORDERED: Nitroglycerin 0.4 MG TAB.SUBL SL PRN (06:07)
[2019-05-07] MEDS: Lisinopril 20 MG TABLET PO SCH (08:09)
[2019-05-07] MEDS: Aspirin 81 MG TAB.CHEW PO SCH (08:09)
[2019-05-07] MEDS: Nitroglycerin 0.4 MG TAB.SUBL SL PRN ×3 (09:53→10:07)
[2019-05-07] MEDS: Acetaminophen 325 MG TABLET PO PRN ×2 (09:59→16:19)
[2019-05-07] MEDS ORDERED: Furosemide 40 MG/4 ML VIAL IVP ONE (10:52)
[2019-05-07 11:19] LABS: BUN/Creatinine Ratio 20 (6-26); Blood Urea Nitrogen 16 mg/dL (8-23); Calcium 9.1 mg/dL (8.6-10.3); Carbon Dioxide 27 mEq/L (23-29); Chloride 104 mEq/L (98-107); Glucose 156 mg/dL (70-105); Osmolality,Calculated 296 (280-300); Potassium 3.6 mEq/L (3.5-5.1); Sodium 141 mEq/L (136-145); eGFR For African Americans > 60 (> 60); eGFR For Non-African Americans > 60 (> 60)
[2019-05-07] MEDS: Nitroglycerin 25 MG/250 ML INFUS..BTL IVC SCH (12:56)
[2019-05-07 13:45] LABS: Bilirubin,Urine Negative (Negative); Blood,Urine Negative (Negative); Clarity,Urine Clear (Clear); Color,Urine Yellow (Yellow); Glucose,Urine (UA) Normal (Normal); Ketones,Urine Negative (Negative); Leukocyte Esterase,Urine Negative (Negative); Nitrite,Urine Negative (Negative); PH,Urine 6.5 pH Units (5.0-8.0); Protein,Urine Negative (Neg-Trace); Urobilinogen,Urine Normal (Normal)
[2019-05-07 14:05] LABS: Amphetamine Screen,Urine Negative ng/mL (Cutoff=1000); Barbiturate Screen,Urine Negative ng/mL (Cutoff=200); Benzodiazepines Screen,Urine Negative ng/mL (Cutoff=200); Cannabinoid Screen,Urine Positive ng/mL (Cutoff = 50); Cocaine Screen,Urine Negative ng/mL (Cutoff= 300); Opiate Screen,Urine Negative ng/mL (Cutoff=300); Phencyclidine Screen,Urine Negative ng/mL (Cutoff=25)
[2019-05-07] MEDS ORDERED: *HR* Rivaroxaban 10 MG TABLET PO SCH (18:00)
[2019-05-07] MEDS ORDERED: Furosemide 20 MG/2 ML VIAL IVP SCH (21:00)
[2019-05-08 03:41] LABS: Hematocrit 34.5 % (35.3-44.9); Hemoglobin 11.2 g/dL (11.5-15.4); Mean Corpuscular HGB Conc 32.5 g/dL (31.6-35.5); Mean Corpuscular Hemoglobin 28.7 pg (28.0-33.3); Mean Corpuscular Volume 88.5 fL (83.0-100.0); Platelet Count 190 K/mcL (140-400); Red Cell Distribution Width 14.6 % (11.5-14.5); White Blood Count 10.7 K/mcL (4.3-11.1)
[2019-05-08 04:02] LABS: BUN/Creatinine Ratio 18 (6-26); Blood Urea Nitrogen 15 mg/dL (8-23); Calcium 8.7 mg/dL (8.6-10.3); Carbon Dioxide 33 mEq/L (23-29); Chloride 100 mEq/L (98-107); Glucose 176 mg/dL (70-105); Osmolality,Calculated 295 (280-300); Potassium 3.5 mEq/L (3.5-5.1); Sodium 140 mEq/L (136-145); eGFR For African Americans > 60 (> 60); eGFR For Non-African Americans > 60 (> 60)
[2019-05-08] MEDS: Lisinopril 20 MG TABLET PO SCH (08:12)
[2019-05-08] MEDS: Aspirin 81 MG TAB.CHEW PO SCH (08:13)
[2019-05-08] MEDS: Furosemide 20 MG/2 ML VIAL IVP SCH ×2 (08:13→18:11)
[2019-05-08] MEDS: Acetaminophen 325 MG TABLET PO PRN ×2 (08:20→18:13)
[2019-05-08 08:33] LABS: INR 1.3; Prothrombin Time 14.7 Seconds (9.4-12.1)
[2019-05-08] MEDS ORDERED: *HR* Midazolam HCl 2 MG/2 ML VIAL ONE (14:53)
[2019-05-08] MEDS ORDERED: *HR* FentaNYL (PF) 100 MCG/2 ML VIAL ONE (14:53)
[2019-05-08] MEDS ORDERED: 0.9 % Sodium Chloride 1,000 ML ONE (14:54)
[2019-05-08] MEDS ORDERED: Nitroglycerin 1,000 MCG/10 ML VIAL IV ONE (14:54)
[2019-05-08] MEDS ORDERED: Heparin 1,000 UNITS/500 mL 500 ML ONE (14:54)
[2019-05-08] MEDS ORDERED: ISOVUE-370 200 ML INFUS..BTL ONE (14:54)
[2019-05-08] MEDS ORDERED: *HR* Heparin 10,000 UNIT/10 ML VIAL ONE (14:54)
[2019-05-08] MEDS ORDERED: Verapamil 5 MG/2 ML VIAL ONE (15:39)
[2019-05-08] MEDS ORDERED: Tirofiban 12.5 MG/250ML 12.5 MG/250 ML BAG ONE (16:18)
[2019-05-08] MEDS ORDERED: *HR* Labetalol 100 MG/20 ML MDV ONE (17:06)
[2019-05-08] MEDS ORDERED: Tirofiban 12.5 MG/250ML 12.5 MG/250 ML BAG IVC SCH (17:15)
[2019-05-09 04:41] LABS: Hematocrit 35.1 % (35.3-44.9); Mean Corpuscular HGB Conc 31.3 g/dL (31.6-35.5); Mean Corpuscular Hemoglobin 28.5 pg (28.0-33.3); Mean Corpuscular Volume 90.9 fL (83.0-100.0); Mean Platelet Volume 10.9 fL (9.4-12.4); Platelet Count 198 K/mcL (140-400); Red Blood Count 3.86 M/mcL (3.82-4.97); Red Cell Distribution Width 14.3 % (11.5-14.5); White Blood Count 9.2 K/mcL (4.3-11.1)
[2019-05-09 04:57] LABS: BUN/Creatinine Ratio 17 (6-26); Blood Urea Nitrogen 15 mg/dL (8-23); Calcium 8.5 mg/dL (8.6-10.3); Carbon Dioxide 30 mEq/L (23-29); Chloride 102 mEq/L (98-107); Glucose 134 mg/dL (70-105); Osmolality,Calculated 291 (280-300); Potassium 3.3 mEq/L (3.5-5.1); Sodium 139 mEq/L (136-145); eGFR For African Americans > 60 (> 60); eGFR For Non-African Americans > 60 (> 60)
[2019-05-09] MEDS: Nitroglycerin 25 MG/250 ML INFUS..BTL IVC SCH (05:20)
[2019-05-09] MEDS: Lisinopril 20 MG TABLET PO SCH (08:01)
[2019-05-09] MEDS: Furosemide 20 MG/2 ML VIAL IVP SCH ×2 (08:01→16:16)
[2019-05-09] MEDS: Aspirin 81 MG TAB.CHEW PO SCH (08:02)
[2019-05-09] MEDS ORDERED: Aspirin 81 MG TAB.CHEW PO SCH (09:00)
[2019-05-09] MEDS ORDERED: *HR* Heparin 5,000 UNIT/ML VIAL IVP PRN ×2 (10:10)
[2019-05-09] MEDS ORDERED: *HR* Heparin 5,000 UNIT/ML VIAL IVP ONE (10:10)
[2019-05-09 10:53] LABS: INR 1.1; Prothrombin Time 12.5 Seconds (9.4-12.1)
[2019-05-09 10:57] LABS: Hematocrit 34.7 % (35.3-44.9); Hemoglobin 11.4 g/dL (11.5-15.4); Mean Corpuscular HGB Conc 32.9 g/dL (31.6-35.5); Mean Corpuscular Hemoglobin 29.1 pg (28.0-33.3); Mean Corpuscular Volume 88.5 fL (83.0-100.0); Mean Platelet Volume 10.9 fL (9.4-12.4); Platelet Count 203 K/mcL (140-400); Red Blood Count 3.92 M/mcL (3.82-4.97); Red Cell Distribution Width 14.3 % (11.5-14.5); White Blood Count 9.6 K/mcL (4.3-11.1)
[2019-05-09] MEDS: Heparin 25,000 UNIT/250 ML D5W 25,000 UNIT/250 ML IV.SOLN IVC SCH (11:53)
[2019-05-09 12:55] LABS: Activated Partial Thrombo Time 29.6 Seconds (26.0-36.0)
[2019-05-09] MEDS: Acetaminophen 325 MG TABLET PO PRN (23:54)
[2019-05-10] MEDS: Heparin 25,000 UNIT/250 ML D5W 25,000 UNIT/250 ML IV.SOLN IVC SCH ×3 (03:28→20:08)
[2019-05-10 04:32] LABS: Adenovirus Not Detected (Not Detect); Bordetella Pertussis Not Detected (Not Detect); Chlamydophila pneumoniae Not Detected (Not Detect); Coronavirus 229E Not Detected (Not Detect); Coronavirus HKU1 Not Detected (Not Detect); Coronavirus NL63 Not Detected (Not Detect); Coronavirus OC43 Not Detected (Not Detect); Human Metapneumovirus Not Detected (Not Detect); Human Rhinovirus/Enterovirus Not Detected (Not Detect); Influenza A Subtype 2009 H1 Not Detected (Not Detect); Influenza A Untypeable Not Detected (Not Detect); Influenza B Not Detected (Not Detect); Mycoplasma pneumoniae Not Detected (Not Detect); Parainfluenza Virus 1 Not Detected (Not Detect); Parainfluenza Virus 2 Not Detected (Not Detect); Parainfluenza Virus 3 Not Detected (Not Detect); Parainfluenza Virus 4 Not Detected (Not Detect); Respiratory Syncytial Virus Not Detected (Not Detect)
[2019-05-10 07:05] LABS: Hematocrit 34.7 % (35.3-44.9); Mean Corpuscular HGB Conc 31.7 g/dL (31.6-35.5); Mean Corpuscular Hemoglobin 28.6 pg (28.0-33.3); Mean Corpuscular Volume 90.1 fL (83.0-100.0); Mean Platelet Volume 10.8 fL (9.4-12.4); Platelet Count 187 K/mcL (140-400); Red Blood Count 3.85 M/mcL (3.82-4.97); Red Cell Distribution Width 14.2 % (11.5-14.5); White Blood Count 7.9 K/mcL (4.3-11.1)
[2019-05-10 07:29] LABS: BUN/Creatinine Ratio 19 (6-26); Blood Urea Nitrogen 15 mg/dL (8-23); Calcium 8.8 mg/dL (8.6-10.3); Carbon Dioxide 30 mEq/L (23-29); Chloride 102 mEq/L (98-107); Glucose 149 mg/dL (70-105); Osmolality,Calculated 294 (280-300); Potassium 3.4 mEq/L (3.5-5.1); Sodium 140 mEq/L (136-145); eGFR For African Americans > 60 (> 60); eGFR For Non-African Americans > 60 (> 60)
[2019-05-10] MEDS: Furosemide 20 MG/2 ML VIAL IVP SCH ×2 (08:05→17:23)
[2019-05-10] MEDS: Aspirin 81 MG TAB.CHEW PO SCH (08:06)
[2019-05-10] MEDS ORDERED: Lisinopril 20 MG TABLET PO SCH (09:00)
[2019-05-11 02:55] LABS: Hematocrit 36.6 % (35.3-44.9); Hemoglobin 11.6 g/dL (11.5-15.4); Mean Corpuscular HGB Conc 31.7 g/dL (31.6-35.5); Mean Corpuscular Hemoglobin 28.5 pg (28.0-33.3); Mean Corpuscular Volume 89.9 fL (83.0-100.0); Mean Platelet Volume 10.6 fL (9.4-12.4); Platelet Count 189 K/mcL (140-400); Red Blood Count 4.07 M/mcL (3.82-4.97); Red Cell Distribution Width 14.2 % (11.5-14.5); White Blood Count 7.2 K/mcL (4.3-11.1)
[2019-05-11 03:15] LABS: BUN/Creatinine Ratio 19 (6-26); Blood Urea Nitrogen 20 mg/dL (8-23); Calcium 9.3 mg/dL (8.6-10.3); Carbon Dioxide 29 mEq/L (23-29); Chloride 102 mEq/L (98-107); Glucose 160 mg/dL (70-105); Magnesium 1.9 mg/dL (1.6-2.6); Osmolality,Calculated 294 (280-300); Potassium 3.7 mEq/L (3.5-5.1); Sodium 139 mEq/L (136-145); eGFR For African Americans > 60 (> 60); eGFR For Non-African Americans 53 (> 60)
[2019-05-11] MEDS: Heparin 25,000 UNIT/250 ML D5W 25,000 UNIT/250 ML IV.SOLN IVC SCH ×3 (05:30→21:35)
[2019-05-11] MEDS: Aspirin 81 MG TAB.CHEW PO SCH (08:03)
[2019-05-11] MEDS: hydrALAZINE 25 MG TABLET PO SCH ×2 (08:04→17:27)
[2019-05-11] MEDS: Furosemide 20 MG/2 ML VIAL IVP SCH ×2 (08:04→17:27)
[2019-05-11] MEDS: Lisinopril 20 MG TABLET PO SCH (08:04)
[2019-05-11] MEDS ORDERED: *HR* Heparin 10,000 UNIT/10 ML VIAL ONE ×2 (13:26→15:05)
[2019-05-11] MEDS ORDERED: 0.9 % Sodium Chloride 2,000 ML ONE (13:26)
[2019-05-11] MEDS ORDERED: ISOVUE-370 200 ML INFUS..BTL ONE (13:26)
[2019-05-11] MEDS ORDERED: Nitroglycerin 1,000 MCG/10 ML VIAL IV ONE (13:26)
[2019-05-11] MEDS ORDERED: Heparin 1,000 UNITS/500 mL 500 ML ONE (13:26)
[2019-05-11] MEDS ORDERED: *HR* FentaNYL (PF) 100 MCG/2 ML VIAL ONE ×3 (13:26→17:25)
[2019-05-11] MEDS ORDERED: Verapamil 5 MG/2 ML VIAL ONE (13:26)
[2019-05-11] MEDS ORDERED: *HR* Midazolam HCl 2 MG/2 ML VIAL ONE ×3 (13:26→15:01)
[2019-05-11] MEDS ORDERED: *HR* Adenosine 6 MG/2 ML VIAL IVP ONE (14:53)
[2019-05-11] MEDS ORDERED: niCARdipine 20 MG/200 ML MLS IVC ONE (14:56)
[2019-05-11] MEDS ORDERED: Ondansetron 4 MG/2 ML VIAL IVP PRN (15:15)
[2019-05-11] MEDS: Acetaminophen 325 MG TABLET PO PRN (16:16)
[2019-05-11 18:20] LABS: Basophils # 0.1 K/mcL (0.0-0.2); Basophils % 0.7 %; Eosinophils # 0.2 K/mcL (0.0-0.6); Eosinophils % 2.2 %; Hematocrit 36.5 % (35.3-44.9); Hemoglobin 11.9 g/dL (11.5-15.4); Immature Granulocytes % 0.5 % (0-4); Lymphocytes % 13.1 %; Mean Corpuscular HGB Conc 32.6 g/dL (31.6-35.5); Mean Corpuscular Hemoglobin 28.3 pg (28.0-33.3); Mean Corpuscular Volume 86.7 fL (83.0-100.0); Mean Platelet Volume 10.5 fL (9.4-12.4); Monocytes # 0.6 K/mcL (0.0-1.3); Monocytes % 7.7 %; Neutrophils # 5.8 K/mcL (1.6-8.9); Platelet Count 237 K/mcL (140-400); Red Blood Count 4.21 M/mcL (3.82-4.97); Red Cell Distribution Width 14.5 % (11.5-14.5); Segmented Neutrophils % 75.8 %; White Blood Count 7.7 K/mcL (4.3-11.1)
[2019-05-12] MEDS: hydrALAZINE 25 MG TABLET PO SCH ×2 (00:23→08:27)
[2019-05-12 04:06] LABS: Hematocrit 34.9 % (35.3-44.9); Hemoglobin 11.2 g/dL (11.5-15.4); Mean Corpuscular HGB Conc 32.1 g/dL (31.6-35.5); Mean Corpuscular Hemoglobin 28.1 pg (28.0-33.3); Mean Corpuscular Volume 87.5 fL (83.0-100.0); Mean Platelet Volume 10.8 fL (9.4-12.4); Platelet Count 213 K/mcL (140-400); Red Blood Count 3.99 M/mcL (3.82-4.97); Red Cell Distribution Width 14.7 % (11.5-14.5); White Blood Count 7.2 K/mcL (4.3-11.1)
[2019-05-12 04:27] LABS: Magnesium 2.1 mg/dL (1.6-2.6)
[2019-05-12 04:28] LABS: BUN/Creatinine Ratio 20 (6-26); Blood Urea Nitrogen 21 mg/dL (8-23); Calcium 8.9 mg/dL (8.6-10.3); Carbon Dioxide 25 mEq/L (23-29); Chloride 106 mEq/L (98-107); Glucose 158 mg/dL (70-105); Osmolality,Calculated 294 (280-300); Potassium 3.6 mEq/L (3.5-5.1); Sodium 139 mEq/L (136-145); eGFR For African Americans > 60 (> 60); eGFR For Non-African Americans 52 (> 60)
[2019-05-12 07:04] VITALS: BP 183/81
[2019-05-12] MEDS: Furosemide 20 MG/2 ML VIAL IVP SCH (08:27)
[2019-05-12] MEDS: Aspirin 81 MG TAB.CHEW PO SCH (08:27)
[2019-05-12] MEDS: Lisinopril 20 MG TABLET PO SCH (08:27)
[2019-05-12] MEDS ORDERED: FLU Vac QV 19-20 (6Month+)/PF 0.5 ML SYRINGE IM ONE (11:43)
== END 2019-05-12 12:47 | disposition home or self-care (01) | DRG 246 ==
LOC: 2ANU → SUATTDRO 21:22
PROVIDERS: ADMIT Internal Medicine; ATTEND Internal Medicine

== ENCOUNTER 2019-10-18 16:30 | Observation (INO) ==
[2019-10-18] MEDS ORDERED: Nitroglycerin 0.4 MG TAB.SUBL SL ONE (16:49)
[2019-10-18] MEDS: Nitroglycerin 0.4 MG TAB.SUBL SL SCH ×2 (16:50→16:58)
[2019-10-18] MEDS ORDERED: Aspirin 325 MG TABLET PO ONE (16:50)
[2019-10-18 17:00] LABS: Basophils # 0.1 K/mcL (0.0-0.2); Basophils % 0.3 %; Eosinophils % 0.2 %; Hematocrit 42.1 % (35.3-44.9); Immature Granulocytes % 0.6 % (0-4); Lymphocytes # 1.2 K/mcL (0.6-4.6); Lymphocytes % 8.5 %; Mean Corpuscular HGB Conc 30.9 g/dL (31.6-35.5); Mean Corpuscular Volume 90.7 fL (83.0-100.0); Monocytes # 0.9 K/mcL (0.0-1.3); Neutrophils # 12.2 K/mcL (1.6-8.9); Platelet Count 212 K/mcL (140-400); Red Blood Count 4.64 M/mcL (3.82-4.97); Red Cell Distribution Width 16.8 % (11.5-14.5); Segmented Neutrophils % 84.4 %; White Blood Count 14.4 K/mcL (4.3-11.1)
[2019-10-18 17:03] LABS: INR 1.5; Prothrombin Time 17.2 Seconds (9.4-12.1)
[2019-10-18 17:06] LABS: Activated Partial Thrombo Time 44.3 Seconds (26.0-36.0)
[2019-10-18 17:22] LABS: BUN/Creatinine Ratio 20 (6-26); Blood Urea Nitrogen 19 mg/dL (8-23); Calcium 9.6 mg/dL (8.6-10.3); Carbon Dioxide 28 mEq/L (23-29); Chloride 101 mEq/L (98-107); Glucose 143 mg/dL (70-105); Osmolality,Calculated 291 (280-300); Potassium 4.2 mEq/L (3.5-5.1); Sodium 138 mEq/L (136-145); Troponin I 4.58 ng/mL (< 0.04); eGFR For African Americans > 60 (> 60); eGFR For Non-African Americans 58 (> 60)
[2019-10-18] MEDS ORDERED: Ondansetron 4 MG/2 ML VIAL ONE (18:22)
[2019-10-18] MEDS ORDERED: Ondansetron 4 MG/2 ML VIAL IVP ONE ×2 (18:30→23:00)
[2019-10-18] MEDS ORDERED: *HR* Heparin 5,000 UNIT/ML VIAL IVP ONE (18:45)
[2019-10-18] MEDS ORDERED: Heparin 25,000 UNIT/250 ML D5W 25,000 UNIT/250 ML IV.SOLN IVC SCH (18:45)
[2019-10-18] MEDS ORDERED: *HR* Heparin 5,000 UNIT/ML VIAL IVP PRN ×2 (18:45)
[2019-10-18] MEDS ORDERED: Dextrose Gel 15 GM/37.5 ML TUBE PO PRN ×2 (19:00)
[2019-10-18] MEDS ORDERED: D5% in Water 1,000 ML IVC PRN (19:00)
[2019-10-18] MEDS ORDERED: *HR* Dextrose 50 % in Water (Syg) 50 ML SYRINGE IVP PRN (19:00)
[2019-10-18 19:55] LABS: INR 1.4; Prothrombin Time 16.3 Seconds (9.4-12.1)
[2019-10-18 19:56] LABS: Hematocrit 37.6 % (35.3-44.9); Hemoglobin 11.6 g/dL (11.5-15.4); Mean Corpuscular HGB Conc 30.9 g/dL (31.6-35.5); Mean Corpuscular Hemoglobin 27.8 pg (28.0-33.3); Mean Corpuscular Volume 90.2 fL (83.0-100.0); Mean Platelet Volume 10.8 fL (9.4-12.4); Platelet Count 194 K/mcL (140-400); Red Blood Count 4.17 M/mcL (3.82-4.97); Red Cell Distribution Width 16.8 % (11.5-14.5); White Blood Count 12.6 K/mcL (4.3-11.1)
[2019-10-18 19:57] LABS: Heparin anti-factor XA UFH 1.02 IU/mL (0.30-0.70)
[2019-10-18] MEDS: Heparin 25,000 UNIT/250 ML D5W 25,000 UNIT/250 ML IV.SOLN IVC SCH (21:14)
[2019-10-18] MEDS ORDERED: Acetaminophen 325 MG TABLET PO ONE (23:01)
[2019-10-18] MEDS: Insulin LISPRO 300 UNITS/3 ML VIAL SQ SCH (23:54)
[2019-10-19 00:41] LABS: Basophils % 0.3 %; Eosinophils % 0.2 %; Hematocrit 35.8 % (35.3-44.9); Hemoglobin 11.2 g/dL (11.5-15.4); Immature Granulocytes % 0.5 % (0-4); Lymphocytes % 8.1 %; Mean Corpuscular HGB Conc 31.3 g/dL (31.6-35.5); Mean Corpuscular Hemoglobin 28.2 pg (28.0-33.3); Mean Corpuscular Volume 90.2 fL (83.0-100.0); Mean Platelet Volume 11.3 fL (9.4-12.4); Monocytes # 0.9 K/mcL (0.0-1.3); Neutrophils # 10.3 K/mcL (1.6-8.9); Platelet Count 177 K/mcL (140-400); Red Blood Count 3.97 M/mcL (3.82-4.97); Red Cell Distribution Width 16.7 % (11.5-14.5); Segmented Neutrophils % 83.9 %; White Blood Count 12.2 K/mcL (4.3-11.1)
[2019-10-19 00:45] LABS: INR 1.5; Prothrombin Time 16.6 Seconds (9.4-12.1)
[2019-10-19 01:00] LABS: Alanine Aminotransferase 13 Units/L (7-52); Albumin 3.6 g/dL (3.5-5.7); Albumin/Globulin Ratio 1.6 (1.1-2.2); Alkaline Phosphatase 78 Units/L (34-104); Aspartate Amino Transferase 30 Units/L (13-39); BUN/Creatinine Ratio 19 (6-26); Bilirubin,Total 1.6 mg/dL (0.3-1.0); Blood Urea Nitrogen 16 mg/dL (8-23); Calcium 8.8 mg/dL (8.6-10.3); Carbon Dioxide 27 mEq/L (23-29); Chloride 103 mEq/L (98-107); Globulin 2.2 g/dL (2.4-3.5); Glucose 144 mg/dL (70-105); Magnesium 1.8 mg/dL (1.6-2.6); Osmolality,Calculated 288 (280-300); Sodium 137 mEq/L (136-145); Total Protein 5.8 g/dL (6.4-8.9); eGFR For African Americans > 60 (> 60); eGFR For Non-African Americans > 60 (> 60)
[2019-10-19] MEDS: Insulin LISPRO 300 UNITS/3 ML VIAL SQ SCH ×3 (06:28→20:22)
[2019-10-19] MEDS: Nitroglycerin 0.4 MG TAB.SUBL SL SCH (07:33)
[2019-10-19] MEDS: Aspirin 81 MG TAB.CHEW PO SCH (07:37)
[2019-10-19] MEDS ORDERED: Perflutren Lipid Microsphere 1.3 ML in 0.9 % Sodium Chloride 8.7 ML IVP ONE (10:00)
[2019-10-19] MEDS: 0.9 % Sodium Chloride 1,000 ML IVC SCH ×2 (10:23→20:44)
[2019-10-19] MEDS ORDERED: *HR* Heparin 10,000 UNIT/10 ML VIAL ONE (11:36)
[2019-10-19] MEDS ORDERED: ISOVUE-370 200 ML INFUS..BTL ONE (11:36)
[2019-10-19] MEDS ORDERED: Nitroglycerin 1,000 MCG/10 ML VIAL IV ONE (11:36)
[2019-10-19] MEDS ORDERED: 0.9 % Sodium Chloride 2,000 ML ONE (11:36)
[2019-10-19] MEDS ORDERED: Heparin 1,000 UNITS/500 mL 500 ML ONE ×2 (11:36→12:20)
[2019-10-19] MEDS ORDERED: Ondansetron 4 MG/2 ML VIAL ONE (12:03)
[2019-10-19] MEDS ORDERED: *HR* Midazolam HCl 2 MG/2 ML VIAL ONE (12:03)
[2019-10-19] MEDS ORDERED: Furosemide 20 MG TABLET PO PRN (15:58)
[2019-10-19] MEDS: Heparin 25,000 UNIT/250 ML D5W 25,000 UNIT/250 ML IV.SOLN IVC SCH (16:05)
[2019-10-19] MEDS ORDERED: *HR* Rivaroxaban 10 MG TABLET PO SCH (17:00)
[2019-10-19] MEDS ORDERED: Insulin LISPRO 300 UNITS/3 ML VIAL SQ SCH (21:00)
[2019-10-19] MEDS ORDERED: Latanoprost 2.5 ML BOTTLE BOTH EYES SCH (21:00)
[2019-10-20 02:38] LABS: Basophils % 0.5 %; Eosinophils # 0.1 K/mcL (0.0-0.6); Eosinophils % 0.7 %; Hematocrit 31.5 % (35.3-44.9); Hemoglobin 9.9 g/dL (11.5-15.4); Immature Granulocytes % 0.5 % (0-4); Lymphocytes # 0.9 K/mcL (0.6-4.6); Lymphocytes % 10.5 %; Mean Corpuscular HGB Conc 31.4 g/dL (31.6-35.5); Mean Corpuscular Hemoglobin 28.7 pg (28.0-33.3); Mean Corpuscular Volume 91.3 fL (83.0-100.0); Mean Platelet Volume 10.8 fL (9.4-12.4); Monocytes # 0.7 K/mcL (0.0-1.3); Monocytes % 8.9 %; Neutrophils # 6.6 K/mcL (1.6-8.9); Platelet Count 142 K/mcL (140-400); Red Blood Count 3.45 M/mcL (3.82-4.97); Red Cell Distribution Width 16.8 % (11.5-14.5); Segmented Neutrophils % 78.9 %; White Blood Count 8.4 K/mcL (4.3-11.1)
[2019-10-20 02:53] LABS: Chol/HDL Ratio 4.3 (0-4.9)
[2019-10-20 02:54] LABS: BUN/Creatinine Ratio 16 (6-26); Blood Urea Nitrogen 13 mg/dL (8-23); Calcium 8.3 mg/dL (8.6-10.3); Carbon Dioxide 25 mEq/L (23-29); Chloride 107 mEq/L (98-107); Glucose 130 mg/dL (70-105); Osmolality,Calculated 288 (280-300); Potassium 3.9 mEq/L (3.5-5.1); Sodium 138 mEq/L (136-145); eGFR For African Americans > 60 (> 60); eGFR For Non-African Americans > 60 (> 60)
[2019-10-20] MEDS: 0.9 % Sodium Chloride 1,000 ML IVC SCH (06:38)
[2019-10-20] MEDS ORDERED: Insulin LISPRO 300 UNITS/3 ML VIAL SQ SCH (07:30)
[2019-10-20] MEDS: Insulin LISPRO 300 UNITS/3 ML VIAL SQ SCH ×2 (08:07→11:33)
[2019-10-20] MEDS: Aspirin 81 MG TAB.CHEW PO SCH (08:15)
[2019-10-20] MEDS ORDERED: Cholecalciferol (D-3) 1,000 UNIT (25MCG) TABLET PO SCH (09:00)
[2019-10-20] MEDS ORDERED: lisinopriL 20 MG TABLET PO SCH (09:00)
[2019-10-20] MEDS ORDERED: lisinopriL 20 MG TABLET PO ONE (10:30)
[2019-10-20 11:42] VITALS: BP 134/82
[2019-10-20] MEDS ORDERED: Metoprolol XL (24 HR) Succ 50 MG TAB.ER.24H PO SCH (21:00)
[2019-10-21] MEDS ORDERED: lisinopriL 20 MG TABLET PO SCH (09:00)
== END 2019-10-20 12:56 | disposition home or self-care (01) ==
LOC: 2ANU 16:30 → EMEROOARM 16:30 → SUATTDRO 17:48 → 2ANU 18:39
PROVIDERS: ADMIT Internal Medicine; ATTEND Family Medicine

== ENCOUNTER 2020-07-14 19:12 | Inpatient (IN) ==
[2020-07-14] MEDS ORDERED: Ondansetron 4 MG/2 ML VIAL IVP ONE (20:02)
[2020-07-14] MEDS ORDERED: *HR* Metoprolol 5 MG/5 ML VIAL IVP ONE (20:06)
[2020-07-14 20:57] LABS: Basophils # 0.1 K/mcL (0.0-0.2); Basophils % 0.3 %; Eosinophils % 0.1 %; Hematocrit 41.5 % (35.3-44.9); Hemoglobin 13.1 g/dL (11.5-15.4); Immature Granulocytes % 0.8 % (0-4); Lymphocytes # 0.7 K/mcL (0.6-4.6); Lymphocytes % 5.1 %; Mean Corpuscular HGB Conc 31.6 g/dL (31.6-35.5); Mean Corpuscular Hemoglobin 28.6 pg (28.0-33.3); Mean Corpuscular Volume 90.6 fL (83.0-100.0); Mean Platelet Volume 11.8 fL (9.4-12.4); Monocytes # 0.4 K/mcL (0.0-1.3); Neutrophils # 13.3 K/mcL (1.6-8.9); Platelet Count 187 K/mcL (140-400); Red Blood Count 4.58 M/mcL (3.82-4.97); Red Cell Distribution Width 13.8 % (11.5-14.5); Segmented Neutrophils % 90.7 %; White Blood Count 14.6 K/mcL (4.3-11.1)
[2020-07-14 21:15] LABS: BUN/Creatinine Ratio 24 (6-26); Blood Urea Nitrogen 21 mg/dL (8-23); Calcium 9.6 mg/dL (8.6-10.3); Carbon Dioxide 24 mEq/L (23-29); Chloride 104 mEq/L (98-107); Glucose 164 mg/dL (70-105); Osmolality,Calculated 299 (280-300); Potassium 3.8 mEq/L (3.5-5.1); Sodium 141 mEq/L (136-145); eGFR For African Americans > 60 (> 60); eGFR For Non-African Americans > 60 (> 60)
[2020-07-14 21:45] LABS: Troponin I < 0.03 ng/mL (< 0.04)
[2020-07-14 21:49] LABS: Alanine Aminotransferase 23 Units/L (7-52); Albumin 4.4 g/dL (3.5-5.7); Albumin/Globulin Ratio 1.7 (1.1-2.2); Alkaline Phosphatase 105 Units/L (34-104); Aspartate Amino Transferase 19 Units/L (13-39); Bilirubin,Direct 0.3 mg/dL (0.0-0.2); Bilirubin,Indirect 1.2 mg/dL (0.0-1.0); Bilirubin,Total 1.5 mg/dL (0.3-1.0); Globulin 2.6 g/dL (2.4-3.5); Lipase 6 Units/L (11-82)
[2020-07-14] MEDS ORDERED: Isovue-370 500 ML BOTTLE IVP ONE (22:04)
[2020-07-14] MEDS ORDERED: Naloxone 0.4 MG/ML INJ IVP PRN (23:24)
[2020-07-15] MEDS: Ondansetron 4 MG/2 ML VIAL IVP PRN ×2 (02:09→16:26)
[2020-07-15 04:17] LABS: Basophils % 0.1 %; Hematocrit 38.3 % (35.3-44.9); Immature Granulocytes % 0.4 % (0-4); Lymphocytes % 3.8 %; Mean Corpuscular HGB Conc 31.3 g/dL (31.6-35.5); Mean Corpuscular Volume 89.3 fL (83.0-100.0); Mean Platelet Volume 11.5 fL (9.4-12.4); Monocytes % 2.8 %; Platelet Count 185 K/mcL (140-400); Red Blood Count 4.29 M/mcL (3.82-4.97); Red Cell Distribution Width 13.8 % (11.5-14.5); Segmented Neutrophils % 92.9 %; White Blood Count 14.1 K/mcL (4.3-11.1)
[2020-07-15 04:18] LABS: Lymphocytes # 0.5 K/mcL (0.6-4.6); Monocytes # 0.4 K/mcL (0.0-1.3); Neutrophils # 13.1 K/mcL (1.6-8.9)
[2020-07-15 04:31] LABS: BUN/Creatinine Ratio 25 (6-26); Blood Urea Nitrogen 20 mg/dL (8-23); Calcium 9.1 mg/dL (8.6-10.3); Carbon Dioxide 27 mEq/L (23-29); Chloride 103 mEq/L (98-107); Glucose 208 mg/dL (70-105); Osmolality,Calculated 299 (280-300); Potassium 3.8 mEq/L (3.5-5.1); Sodium 140 mEq/L (136-145); eGFR For African Americans > 60 (> 60); eGFR For Non-African Americans > 60 (> 60)
[2020-07-15] MEDS ORDERED: *HR* Dextrose 50 % in Water (Vial) 50 ML VIAL IVP PRN (05:22)
[2020-07-15] MEDS ORDERED: Dextrose Gel 15 GM/37.5 ML TUBE PO PRN ×2 (05:22)
[2020-07-15] MEDS ORDERED: D5% in Water 1,000 ML IVC PRN (05:22)
[2020-07-15] MEDS ORDERED: *HR* Labetalol 20 MG/4 ML SYRINGE IVP ONE (06:35)
[2020-07-15] MEDS: Insulin LISPRO 300 UNITS/3 ML VIAL SUBQ SCH ×3 (07:45→17:52)
[2020-07-15] MEDS: Aspirin 81 MG TAB.CHEW PO SCH (07:45)
[2020-07-15] MEDS: Acetaminophen 325 MG TABLET PO PRN ×2 (09:40→16:26)
[2020-07-15] MEDS ORDERED: Isosorbide MONOnitrate (24 HR) 30 MG TAB.ER.24H PO SCH (10:15)
[2020-07-15] MEDS ORDERED: lisinopriL 20 MG TABLET PO SCH (10:15)
[2020-07-15] MEDS ORDERED: Furosemide 20 MG TABLET PO PRN (10:51)
[2020-07-15] MEDS ORDERED: Furosemide 20 MG/2 ML VIAL IVP ONE (14:12)
[2020-07-15] MEDS: *HR* Rivaroxaban 10 MG TABLET PO SCH (16:25)
[2020-07-15] MEDS: Isosorbide MONOnitrate (24 HR) 30 MG TAB.ER.24H PO SCH (17:59)
[2020-07-15] MEDS ORDERED: Metoprolol 100 MG TABLET PO SCH (21:00)
[2020-07-15] MEDS: Latanoprost 2.5 ML BOTTLE BOTH EYES SCH (22:04)
[2020-07-16 00:59] LABS: Basophils % 0.2 %; Eosinophils # 0.1 K/mcL (0.0-0.6); Eosinophils % 0.6 %; Hematocrit 34.9 % (35.3-44.9); Hemoglobin 11.1 g/dL (11.5-15.4); Immature Granulocytes % 0.3 % (0-4); Lymphocytes # 1.2 K/mcL (0.6-4.6); Lymphocytes % 10.9 %; Mean Corpuscular HGB Conc 31.8 g/dL (31.6-35.5); Mean Corpuscular Volume 91.1 fL (83.0-100.0); Mean Platelet Volume 11.4 fL (9.4-12.4); Monocytes # 0.7 K/mcL (0.0-1.3); Monocytes % 6.2 %; Neutrophils # 8.6 K/mcL (1.6-8.9); Platelet Count 170 K/mcL (140-400); Red Blood Count 3.83 M/mcL (3.82-4.97); Segmented Neutrophils % 81.8 %; White Blood Count 10.5 K/mcL (4.3-11.1)
[2020-07-16 01:21] LABS: BUN/Creatinine Ratio 23 (6-26); Blood Urea Nitrogen 20 mg/dL (8-23); Calcium 8.6 mg/dL (8.6-10.3); Carbon Dioxide 31 mEq/L (23-29); Chloride 103 mEq/L (98-107); Glucose 128 mg/dL (70-105); Osmolality,Calculated 294 (280-300); Potassium 3.5 mEq/L (3.5-5.1); Sodium 140 mEq/L (136-145); eGFR For African Americans > 60 (> 60); eGFR For Non-African Americans > 60 (> 60)
[2020-07-16] MEDS: Insulin LISPRO 300 UNITS/3 ML VIAL SUBQ SCH ×4 (02:30→16:26)
[2020-07-16] MEDS: lisinopriL 20 MG TABLET PO SCH (07:37)
[2020-07-16] MEDS: Isosorbide MONOnitrate (24 HR) 30 MG TAB.ER.24H PO SCH (07:37)
[2020-07-16] MEDS: Aspirin 81 MG TAB.CHEW PO SCH (07:37)
[2020-07-16] MEDS ORDERED: NON-FORMULARY MEDICATION 1 EACH EACH (Mirabegron [Myrbetriq] 50 MG) PO SCH (09:00)
[2020-07-16] MEDS ORDERED: Isosorbide MONOnitrate (24 HR) 30 MG TAB.ER.24H PO SCH (09:00)
[2020-07-16] MEDS ORDERED: Furosemide 20 MG TABLET PO SCH ×2 (09:00)
[2020-07-16] MEDS ORDERED: Furosemide 40 MG/4 ML VIAL IVP ONE (12:06)
[2020-07-16] MEDS: *HR* Rivaroxaban 10 MG TABLET PO SCH (16:15)
[2020-07-16] MEDS: Acetaminophen 325 MG TABLET PO PRN ×2 (16:16→20:45)
[2020-07-16] MEDS: Latanoprost 2.5 ML BOTTLE BOTH EYES SCH (19:56)
[2020-07-17 01:11] LABS: Basophils % 0.4 %; Eosinophils # 0.1 K/mcL (0.0-0.6); Eosinophils % 1.2 %; Hematocrit 37.3 % (35.3-44.9); Hemoglobin 11.7 g/dL (11.5-15.4); Immature Granulocytes % 0.5 % (0-4); Lymphocytes # 1.3 K/mcL (0.6-4.6); Lymphocytes % 12.7 %; Mean Corpuscular HGB Conc 31.4 g/dL (31.6-35.5); Mean Corpuscular Hemoglobin 28.1 pg (28.0-33.3); Mean Corpuscular Volume 89.7 fL (83.0-100.0); Mean Platelet Volume 11.4 fL (9.4-12.4); Monocytes # 0.7 K/mcL (0.0-1.3); Monocytes % 6.4 %; Platelet Count 184 K/mcL (140-400); Red Blood Count 4.16 M/mcL (3.82-4.97); Red Cell Distribution Width 13.8 % (11.5-14.5); Segmented Neutrophils % 78.8 %; White Blood Count 10.2 K/mcL (4.3-11.1)
[2020-07-17 01:33] LABS: BUN/Creatinine Ratio 22 (6-26); Blood Urea Nitrogen 19 mg/dL (8-23); Calcium 8.8 mg/dL (8.6-10.3); Carbon Dioxide 32 mEq/L (23-29); Chloride 99 mEq/L (98-107); Glucose 149 mg/dL (70-105); Osmolality,Calculated 293 (280-300); Potassium 3.3 mEq/L (3.5-5.1); Sodium 139 mEq/L (136-145); eGFR For African Americans > 60 (> 60); eGFR For Non-African Americans > 60 (> 60)
[2020-07-17] MEDS: Insulin LISPRO 300 UNITS/3 ML VIAL SUBQ SCH ×3 (07:31→16:16)
[2020-07-17] MEDS ORDERED: Regadenoson 0.4 MG/5 ML SYRINGE IVP ONE (07:39)
[2020-07-17] MEDS: lisinopriL 20 MG TABLET PO SCH (09:47)
[2020-07-17] MEDS ORDERED: Potassium Chloride Elixir 20 MEQ/15 ML UDC PO ONE (10:11)
[2020-07-17] MEDS: Furosemide 40 MG TABLET PO SCH (12:49)
[2020-07-17] MEDS: Isosorbide MONOnitrate (24 HR) 30 MG TAB.ER.24H PO SCH (12:50)
[2020-07-17] MEDS: hydrALAZINE 25 MG TABLET PO SCH ×2 (14:06→23:46)
[2020-07-17] MEDS ORDERED: Isosorbide MONOnitrate (24 HR) 30 MG TAB.ER.24H PO ONE (14:50)
[2020-07-17] MEDS: *HR* Rivaroxaban 10 MG TABLET PO SCH (16:16)
[2020-07-17] MEDS: Latanoprost 2.5 ML BOTTLE BOTH EYES SCH (19:51)
[2020-07-18 06:54] VITALS: BP 153/70
[2020-07-18] MEDS: hydrALAZINE 25 MG TABLET PO SCH (07:55)
[2020-07-18] MEDS: lisinopriL 20 MG TABLET PO SCH (07:56)
[2020-07-18] MEDS: Furosemide 40 MG TABLET PO SCH (07:56)
[2020-07-18] MEDS: Insulin LISPRO 300 UNITS/3 ML VIAL SUBQ SCH (07:57)
[2020-07-18] MEDS ORDERED: Isosorbide MONOnitrate (24 HR) 60 MG TAB.ER.24H PO SCH (09:00)
== END 2020-07-18 11:30 | disposition home or self-care (01) | DRG 304 ==
LOC: EMEROOARM 19:12 → 2ANU 19:12 → SUATTDRO 22:51 → 2NNU 07-15 00:58
PROVIDERS: ADMIT Internal Medicine; ATTEND Internal Medicine

== ENCOUNTER 2021-01-12 14:44 | Observation (INO) ==
[2021-01-12 15:41] LABS: Basophils # 0.1 K/mcL (0.0-0.2); Basophils % 0.6 %; Eosinophils # 0.2 K/mcL (0.0-0.6); Eosinophils % 1.9 %; Hematocrit 39.3 % (35.3-44.9); Hemoglobin 12.7 g/dL (11.5-15.4); INR 1.7; Immature Granulocytes % 0.4 % (0-4); Lymphocytes # 1.4 K/mcL (0.6-4.6); Lymphocytes % 17.2 %; Mean Corpuscular HGB Conc 32.3 g/dL (31.6-35.5); Mean Corpuscular Hemoglobin 30.2 pg (28.0-33.3); Mean Corpuscular Volume 93.3 fL (83.0-100.0); Mean Platelet Volume 11.1 fL (9.4-12.4); Monocytes # 0.5 K/mcL (0.0-1.3); Monocytes % 5.9 %; Neutrophils # 6.1 K/mcL (1.6-8.9); Platelet Count 252 K/mcL (140-400); Prothrombin Time 19.5 Seconds (9.4-12.1); Red Blood Count 4.21 M/mcL (3.82-4.97); Red Cell Distribution Width 13.5 % (11.5-14.5); White Blood Count 8.3 K/mcL (4.3-11.1)
[2021-01-12 15:44] LABS: Activated Partial Thrombo Time 39.7 Seconds (26.0-36.0)
[2021-01-12] MEDS ORDERED: Isovue-370 500 ML BOTTLE IVP ONE (15:55)
[2021-01-12] MEDS ORDERED: Pantoprazole 40 MG VIAL IVP STA (15:57)
[2021-01-12 15:58] LABS: BUN/Creatinine Ratio 21 (6-26); Blood Urea Nitrogen 22 mg/dL (8-23); Calcium 9.2 mg/dL (8.6-10.3); Carbon Dioxide 27 mEq/L (23-29); Chloride 103 mEq/L (98-107); Glucose 147 mg/dL (70-105); Osmolality,Calculated 290 (280-300); Potassium 4.2 mEq/L (3.5-5.1); Sodium 137 mEq/L (136-145); eGFR For African Americans > 60 (> 60); eGFR For Non-African Americans 51 (> 60)
[2021-01-12 17:59] LABS: Troponin I < 0.03 ng/mL (< 0.04)
[2021-01-12] MEDS ORDERED: Naloxone 0.4 MG/ML INJ IVP PRN (18:17)
[2021-01-13] MEDS ORDERED: Ondansetron 4 MG/2 ML VIAL IVP ONE (04:26)
[2021-01-13 06:10] LABS: Basophils # 0.1 K/mcL (0.0-0.2); Basophils % 0.6 %; Eosinophils # 0.2 K/mcL (0.0-0.6); Eosinophils % 1.9 %; Hematocrit 38.7 % (35.3-44.9); Hemoglobin 12.5 g/dL (11.5-15.4); Immature Granulocytes % 0.4 % (0-4); Lymphocytes # 1.2 K/mcL (0.6-4.6); Lymphocytes % 15.3 %; Mean Corpuscular HGB Conc 32.3 g/dL (31.6-35.5); Mean Corpuscular Hemoglobin 29.7 pg (28.0-33.3); Mean Corpuscular Volume 91.9 fL (83.0-100.0); Mean Platelet Volume 11.2 fL (9.4-12.4); Monocytes # 0.5 K/mcL (0.0-1.3); Monocytes % 6.9 %; Neutrophils # 5.8 K/mcL (1.6-8.9); Platelet Count 208 K/mcL (140-400); Red Blood Count 4.21 M/mcL (3.82-4.97); Red Cell Distribution Width 13.5 % (11.5-14.5); Segmented Neutrophils % 74.9 %; White Blood Count 7.7 K/mcL (4.3-11.1)
[2021-01-13 06:30] LABS: BUN/Creatinine Ratio 19 (6-26); Blood Urea Nitrogen 17 mg/dL (8-23); Calcium 9.1 mg/dL (8.6-10.3); Carbon Dioxide 24 mEq/L (23-29); Chloride 105 mEq/L (98-107); Glucose 125 mg/dL (70-105); Osmolality,Calculated 289 (280-300); Potassium 3.8 mEq/L (3.5-5.1); Sodium 138 mEq/L (136-145); eGFR For African Americans > 60 (> 60); eGFR For Non-African Americans > 60 (> 60)
[2021-01-13] MEDS ORDERED: *HR* FentaNYL (PF) 100 MCG/2 ML VIAL ONE ×2 (13:48)
[2021-01-13] MEDS ORDERED: *HR* Propofol 200 MG/20 ML VIAL IVP ONE ×2 (13:48)
[2021-01-13 14:49] VITALS: PULSE 97; O2SAT 96
[2021-01-13 16:17] VITALS: BP 123/62; TEMP 97.8
[2021-01-13] MEDS ORDERED: Nitroglycerin 0.4 MG TAB.SUBL SL PRN (17:30)
[2021-01-13] MEDS ORDERED: *HR* Rivaroxaban 10 MG TABLET PO SCH (18:00)
[2021-01-13] MEDS ORDERED: NON-FORMULARY MEDICATION 1 EACH EACH (Duloxetine Hcl [Cymbalta] 60 MG Capsule.Dr) PO SCH (21:00)
[2021-01-13] MEDS ORDERED: Latanoprost 2.5 ML BOTTLE BOTH EYES SCH (21:00)
[2021-01-13] MEDS ORDERED: *HR* Metformin 500 MG TABLET PO SCH (21:00)
[2021-01-14] MEDS ORDERED: SOLIFENACIN SUCCINATE 10 MG PO SCH (09:00)
[2021-01-14] MEDS ORDERED: Isosorbide MONOnitrate (24 HR) 60 MG TAB.ER.24H PO SCH (09:00)
[2021-01-14] MEDS ORDERED: Famotidine 20 MG TABLET PO SCH (09:00)
[2021-01-14] MEDS ORDERED: Cholecalciferol (D-3) 1,000 UNIT (25MCG) TABLET PO SCH (09:00)
[2021-01-14] MEDS ORDERED: lisinopriL 20 MG TABLET PO SCH (09:00)
[2021-01-14] MEDS ORDERED: Furosemide 20 MG TABLET PO SCH (09:00)
== END 2021-01-13 18:12 | disposition home or self-care (01) ==
LOC: EMEROOARM 14:44 → 3BNU 14:44
PROVIDERS: ADMIT Internal Medicine; ATTEND Internal Medicine

== ENCOUNTER 2021-02-08 17:00 | Inpatient (IN) ==
[2021-02-08] MEDS ORDERED: Nitroglycerin 0.4 MG TAB.SUBL SL PRN (17:20)
[2021-02-08] MEDS ORDERED: Aspirin 81 MG TAB.CHEW PO ONE (17:20)
[2021-02-08 17:46] LABS: Basophils % 0.4 %; Eosinophils # 0.1 K/mcL (0.0-0.6); Eosinophils % 1.5 %; Hematocrit 36.1 % (35.3-44.9); Immature Granulocytes % 0.4 % (0-4); Lymphocytes # 1.2 K/mcL (0.6-4.6); Mean Corpuscular HGB Conc 33.2 g/dL (31.6-35.5); Mean Corpuscular Hemoglobin 30.5 pg (28.0-33.3); Mean Corpuscular Volume 91.9 fL (83.0-100.0); Mean Platelet Volume 10.9 fL (9.4-12.4); Monocytes # 0.4 K/mcL (0.0-1.3); Monocytes % 4.9 %; Neutrophils # 6.4 K/mcL (1.6-8.9); Platelet Count 190 K/mcL (140-400); Red Blood Count 3.93 M/mcL (3.82-4.97); Red Cell Distribution Width 13.5 % (11.5-14.5); Segmented Neutrophils % 77.8 %; White Blood Count 8.2 K/mcL (4.3-11.1)
[2021-02-08 18:00] LABS: BUN/Creatinine Ratio 20 (6-26); Blood Urea Nitrogen 21 mg/dL (8-23); Calcium 9.5 mg/dL (8.6-10.3); Carbon Dioxide 29 mEq/L (23-29); Chloride 106 mEq/L (98-107); Glucose 119 mg/dL (70-105); Osmolality,Calculated 296 (280-300); Potassium 4.1 mEq/L (3.5-5.1); Sodium 141 mEq/L (136-145); eGFR For African Americans > 60 (> 60); eGFR For Non-African Americans 51 (> 60)
[2021-02-08 18:01] LABS: Troponin I < 0.03 ng/mL (< 0.04)
[2021-02-08] MEDS ORDERED: Naloxone 0.4 MG/ML INJ IVP PRN (20:24)
[2021-02-08] MEDS ORDERED: Melatonin 3 MG TABLET PO PRN (20:24)
[2021-02-08] MEDS ORDERED: Perflutren Lipid Microsphere 1.3 ML in 0.9 % Sodium Chloride 8.7 ML IVP PRN (20:24)
[2021-02-08] MEDS ORDERED: Ondansetron 4 MG/2 ML VIAL IVP PRN (20:24)
[2021-02-08] MEDS ORDERED: Acetaminophen 325 MG TABLET PO PRN (20:24)
[2021-02-08] MEDS ORDERED: *HR* Dextrose 50 % in Water (Vial) 50 ML VIAL IVP PRN (20:28)
[2021-02-08] MEDS ORDERED: Dextrose Gel 15 GM/37.5 ML TUBE PO PRN ×2 (20:28)
[2021-02-08] MEDS ORDERED: D5% in Water 1,000 ML IVC PRN (20:28)
[2021-02-09 01:44] LABS: Basophils % 0.5 %; Eosinophils # 0.1 K/mcL (0.0-0.6); Eosinophils % 1.6 %; Hematocrit 31.7 % (35.3-44.9); Immature Granulocytes % 0.2 % (0-4); Lymphocytes # 1.2 K/mcL (0.6-4.6); Lymphocytes % 18.3 %; Mean Corpuscular HGB Conc 32.2 g/dL (31.6-35.5); Mean Corpuscular Hemoglobin 29.9 pg (28.0-33.3); Mean Platelet Volume 11.1 fL (9.4-12.4); Monocytes # 0.5 K/mcL (0.0-1.3); Monocytes % 7.6 %; Neutrophils # 4.6 K/mcL (1.6-8.9); Platelet Count 137 K/mcL (140-400); Red Blood Count 3.41 M/mcL (3.82-4.97); Red Cell Distribution Width 13.6 % (11.5-14.5); Segmented Neutrophils % 71.8 %; White Blood Count 6.3 K/mcL (4.3-11.1)
[2021-02-09 01:47] LABS: Hemoglobin 10.2 g/dL (11.5-15.4)
[2021-02-09 02:07] LABS: Calcium 8.7 mg/dL (8.6-10.3); Chol/HDL Ratio 4.2 (0-4.9); Potassium 4.2 mEq/L (3.5-5.1)
[2021-02-09 03:49] LABS: Estimated Average Glucose 128 mg/dl; Hemoglobin A1C 6.1 %
[2021-02-09] MEDS: Cholecalciferol (D-3) 1,000 UNIT (25MCG) TABLET PO SCH (09:49)
[2021-02-09] MEDS: Famotidine 20 MG TABLET PO SCH (09:49)
[2021-02-09] MEDS: Isosorbide MONOnitrate (24 HR) 30 MG TAB.ER.24H PO SCH (09:49)
[2021-02-09] MEDS: Furosemide 40 MG TABLET PO SCH (09:50)
[2021-02-09] MEDS: lisinopriL 20 MG TABLET PO SCH (09:51)
[2021-02-09] MEDS: Insulin LISPRO 300 UNITS/3 ML VIAL SUBQ SCH ×2 (09:52→12:59)
[2021-02-09] MEDS ORDERED: ISOVUE-370 200 ML INFUS..BTL ONE ×2 (11:53→13:16)
[2021-02-09] MEDS ORDERED: Nitroglycerin 1,000 MCG/5 ML VIAL IV ONE (11:53)
[2021-02-09] MEDS ORDERED: *HR* Heparin 10,000 UNIT/10 ML VIAL ONE (11:53)
[2021-02-09] MEDS ORDERED: Heparin 1,000 UNITS/500 mL 500 ML ONE (11:53)
[2021-02-09] MEDS ORDERED: 0.9 % Sodium Chloride 2,000 ML ONE (11:53)
[2021-02-09] MEDS ORDERED: *HR* Midazolam HCl 2 MG/2 ML VIAL ONE (12:23)
[2021-02-09] MEDS ORDERED: *HR* FentaNYL (PF) 100 MCG/2 ML VIAL ONE (12:24)
[2021-02-09] MEDS ORDERED: Tirofiban 12.5 MG/250ML 12.5 MG/250 ML BAG ONE (13:13)
[2021-02-09] MEDS ORDERED: Aspirin 81 MG TAB.CHEW ONE (13:50)
[2021-02-09] MEDS ORDERED: Tirofiban 12.5 MG/250ML 12.5 MG/250 ML BAG IVC SCH (14:00)
[2021-02-09] MEDS ORDERED: *HR* Atropine Sulfate 1 MG/10 ML SYRINGE IV ONE (14:47)
[2021-02-09] MEDS ORDERED: Ondansetron 4 MG/2 ML VIAL ONE (14:58)
[2021-02-09] MEDS ORDERED: *HR* Rivaroxaban 10 MG TABLET PO SCH (17:00)
[2021-02-10 00:45] LABS: Hematocrit 28.3 % (35.3-44.9); Hemoglobin 9.4 g/dL (11.5-15.4); Mean Corpuscular HGB Conc 33.2 g/dL (31.6-35.5); Mean Corpuscular Hemoglobin 30.8 pg (28.0-33.3); Mean Corpuscular Volume 92.8 fL (83.0-100.0); Mean Platelet Volume 10.8 fL (9.4-12.4); Platelet Count 167 K/mcL (140-400); Red Blood Count 3.05 M/mcL (3.82-4.97); Red Cell Distribution Width 13.5 % (11.5-14.5)
[2021-02-10 00:57] LABS: BUN/Creatinine Ratio 19 (6-26); Blood Urea Nitrogen 19 mg/dL (8-23); Calcium 8.2 mg/dL (8.6-10.3); Carbon Dioxide 26 mEq/L (23-29); Chloride 108 mEq/L (98-107); Glucose 111 mg/dL (70-105); Magnesium 1.9 mg/dL (1.6-2.6); Osmolality,Calculated 293 (280-300); Sodium 140 mEq/L (136-145); eGFR For African Americans > 60 (> 60); eGFR For Non-African Americans 56 (> 60)
[2021-02-10] MEDS: Insulin LISPRO 300 UNITS/3 ML VIAL SUBQ SCH ×3 (08:49→11:34)
[2021-02-10] MEDS ORDERED: Aspirin 81 MG TAB.CHEW PO SCH (09:00)
[2021-02-10] MEDS: Isosorbide MONOnitrate (24 HR) 30 MG TAB.ER.24H PO SCH (09:08)
[2021-02-10] MEDS: Furosemide 40 MG TABLET PO SCH (09:08)
[2021-02-10] MEDS: lisinopriL 20 MG TABLET PO SCH (09:08)
[2021-02-10] MEDS: Famotidine 20 MG TABLET PO SCH (09:08)
[2021-02-10] MEDS: Cholecalciferol (D-3) 1,000 UNIT (25MCG) TABLET PO SCH (09:08)
[2021-02-10 11:14] VITALS: BP 107/52; TEMP 98.4; O2SAT 96
[2021-02-10 12:31] VITALS: PULSE 68
== END 2021-02-10 14:48 | disposition home or self-care (01) | DRG 246 ==
LOC: 2ANU 17:00 → CDU 17:00 → EMEROOARM 17:00 → SUATTDRO 18:43 → CDU 20:24 → 2NNU 02-09 18:33
PROVIDERS: ADMIT Pharmacist; ATTEND Internal Medicine

== ENCOUNTER 2021-10-09 14:54 | Inpatient (IN) ==
[2021-10-09] MEDS ORDERED: Naloxone 0.4 MG/ML INJ IVP PRN (17:41)
[2021-10-09] MEDS ORDERED: *HR* Metoprolol 5 MG/5 ML VIAL IVP ONE (18:25)
[2021-10-09] MEDS ORDERED: *HR* Dextrose 50 % in Water (Syg) 50 ML SYRINGE IVP PRN (18:42)
[2021-10-09] MEDS ORDERED: D5% in Water 1,000 ML IVC PRN (18:42)
[2021-10-09] MEDS ORDERED: Dextrose 4 GM Chewable Tablets PO PRN ×2 (18:42)
[2021-10-09] MEDS ORDERED: Perflutren Lipid Microsphere 1.3 ML in 0.9 % Sodium Chloride 8.7 ML IVP PRN (18:44)
[2021-10-09] MEDS: Nitroglycerin 0.4 MG TAB.SUBL SL PRN ×5 (19:05→23:59)
[2021-10-09] MEDS: Ondansetron 4 MG/2 ML VIAL IVP PRN (19:21)
[2021-10-09] MEDS: Insulin LISPRO 300 UNITS/3 ML VIAL SUBQ SCH (21:18)
[2021-10-09] MEDS ORDERED: *HR* Heparin 5,000 UNIT/ML VIAL IVP ONE (22:52)
[2021-10-09] MEDS ORDERED: *HR* Heparin 5,000 UNIT/ML VIAL IVP PRN ×2 (22:52)
[2021-10-09] MEDS ORDERED: Heparin 25,000UNIT/250ML 1/2NS 25,000 UNIT/250 ML IV.SOLN IVC SCH ×2 (23:00→23:30)
[2021-10-09] MEDS: Latanoprost 2.5 ML BOTTLE BOTH EYES SCH (23:05)
[2021-10-09 23:41] LABS: Heparin anti-factor XA UFH 0.13 IU/mL (0.30-0.70); INR 1.1; Prothrombin Time 12.6 Seconds (9.4-12.1)
[2021-10-09 23:53] LABS: Activated Partial Thrombo Time 35.5 Seconds (26.0-36.0)
[2021-10-10 00:11] LABS: Hematocrit 40.4 % (35.3-44.9); Hemoglobin 13.3 g/dL (11.5-15.4); Mean Corpuscular HGB Conc 32.9 g/dL (31.6-35.5); Mean Corpuscular Hemoglobin 30.1 pg (28.0-33.3); Mean Corpuscular Volume 91.4 fL (83.0-100.0); Mean Platelet Volume 10.9 fL (9.4-12.4); Platelet Count 237 K/mcL (140-400); Red Blood Count 4.42 M/mcL (3.82-4.97); Red Cell Distribution Width 13.8 % (11.5-14.5); White Blood Count 12.7 K/mcL (4.3-11.1)
[2021-10-10 05:54] LABS: Basophils % 0.2 %; Eosinophils % 0.1 %; Hematocrit 38.7 % (35.3-44.9); Hemoglobin 12.4 g/dL (11.5-15.4); Immature Granulocytes % 0.6 % (0-4); Lymphocytes # 0.7 K/mcL (0.6-4.6); Mean Corpuscular Hemoglobin 29.1 pg (28.0-33.3); Mean Corpuscular Volume 90.8 fL (83.0-100.0); Mean Platelet Volume 10.6 fL (9.4-12.4); Monocytes # 0.7 K/mcL (0.0-1.3); Monocytes % 4.8 %; Neutrophils # 13.3 K/mcL (1.6-8.9); Platelet Count 227 K/mcL (140-400); Red Blood Count 4.26 M/mcL (3.82-4.97); Red Cell Distribution Width 14.1 % (11.5-14.5); Segmented Neutrophils % 89.3 %; White Blood Count 14.9 K/mcL (4.3-11.1)
[2021-10-10 06:22] LABS: BUN/Creatinine Ratio 23 (6-26); Blood Urea Nitrogen 22 mg/dL (8-23); Calcium 9.6 mg/dL (8.6-10.3); Carbon Dioxide 24 mEq/L (23-29); Chloride 104 mEq/L (98-107); Chol/HDL Ratio 4.1 (0-4.9); Cholesterol 262 mg/dL (< 200); Glucose 166 mg/dL (70-105); HDL Cholesterol 64 mg/dL (40-59); LDL Cholesterol,Calculated 174 mg/dL (< 100); Osmolality,Calculated 295 (280-300); Potassium 4.1 mEq/L (3.5-5.1); Sodium 139 mEq/L (136-145); Triglycerides 119 mg/dL (< 150); eGFR For African Americans > 60 (> 60); eGFR For Non-African Americans 57 (> 60)
[2021-10-10] MEDS: lisinopriL 20 MG TABLET PO SCH (08:28)
[2021-10-10] MEDS: Famotidine 20 MG TABLET PO SCH (08:28)
[2021-10-10] MEDS: Insulin LISPRO 300 UNITS/3 ML VIAL SUBQ SCH ×4 (08:28→21:54)
[2021-10-10] MEDS: Furosemide 20 MG TABLET PO SCH (08:29)
[2021-10-10] MEDS: Isosorbide MONOnitrate (24 HR) 30 MG TAB.ER.24H PO SCH (08:29)
[2021-10-10] MEDS: Acetaminophen 325 MG TABLET PO PRN ×2 (08:36→20:00)
[2021-10-10] MEDS ORDERED: Solifenacin Succinate [Vesicare] 10 MG Tablet PO SCH (09:00)
[2021-10-10] MEDS ORDERED: *HR* Metformin 500 MG TABLET PO SCH (09:00)
[2021-10-10] MEDS ORDERED: 0.9 % Sodium Chloride 2,000 ML ONE (13:55)
[2021-10-10] MEDS ORDERED: Heparin 1,000 UNITS/500 mL 500 ML ONE (13:55)
[2021-10-10] MEDS ORDERED: Nitroglycerin 1,000 MCG/5 ML VIAL IV ONE (13:56)
[2021-10-10] MEDS ORDERED: ISOVUE-370 200 ML INFUS..BTL ONE ×2 (13:56→15:00)
[2021-10-10] MEDS ORDERED: *HR* Heparin 10,000 UNIT/10 ML VIAL ONE (13:56)
[2021-10-10] MEDS ORDERED: *HR* FentaNYL (PF) 100 MCG/2 ML VIAL ONE (14:08)
[2021-10-10] MEDS ORDERED: *HR* Midazolam HCl 2 MG/2 ML VIAL ONE (14:08)
[2021-10-10] MEDS ORDERED: *HR* Bivalirudin 250 MG VIAL IVC ONE (15:16)
[2021-10-10] MEDS ORDERED: 0.9 % Sodium Chloride 1,000 ML IVC SCH (16:00)
[2021-10-10] MEDS: carvediloL 25 MG TABLET PO SCH (16:38)
[2021-10-10] MEDS ORDERED: carvediloL 6.25 MG TABLET PO SCH (17:00)
[2021-10-10] MEDS: hydrALAZINE 25 MG TABLET PO SCH (17:37)
[2021-10-10] MEDS: Latanoprost 2.5 ML BOTTLE BOTH EYES SCH (21:54)
[2021-10-10] MEDS ORDERED: *HR* Atropine Sulfate 1 MG/10 ML SYRINGE ONE (21:59)
[2021-10-11] MEDS ORDERED: 0.9 % Sodium Chloride 1,000 ML ONE (00:21)
[2021-10-11] MEDS ORDERED: *HR* OxyCODONE Immed Rel 5 MG TABLET PO PRN (01:18)
[2021-10-11] MEDS: hydrALAZINE 25 MG TABLET PO SCH ×5 (02:52→23:33)
[2021-10-11] MEDS: Ondansetron 4 MG/2 ML VIAL IVP PRN (02:52)
[2021-10-11] MEDS: *HR* Rivaroxaban 10 MG TABLET PO SCH ×2 (02:53→17:42)
[2021-10-11] MEDS: Insulin LISPRO 300 UNITS/3 ML VIAL SUBQ SCH ×4 (08:31→21:10)
[2021-10-11] MEDS: Furosemide 20 MG TABLET PO SCH (09:47)
[2021-10-11] MEDS: carvediloL 25 MG TABLET PO SCH ×2 (09:47→17:01)
[2021-10-11] MEDS: Isosorbide MONOnitrate (24 HR) 30 MG TAB.ER.24H PO SCH (09:47)
[2021-10-11] MEDS: Famotidine 20 MG TABLET PO SCH (09:48)
[2021-10-11] MEDS: Aspirin 81 MG TAB.CHEW PO SCH (09:48)
[2021-10-11] MEDS: lisinopriL 20 MG TABLET PO SCH (09:48)
[2021-10-11] MEDS: Latanoprost 2.5 ML BOTTLE BOTH EYES SCH (21:10)
[2021-10-12] MEDS: hydrALAZINE 25 MG TABLET PO SCH (05:37)
[2021-10-12 06:55] LABS: BUN/Creatinine Ratio 22 (6-26); Blood Urea Nitrogen 23 mg/dL (8-23); Calcium 8.6 mg/dL (8.6-10.3); Carbon Dioxide 28 mEq/L (23-29); Chloride 104 mEq/L (98-107); Glucose 129 mg/dL (70-105); Osmolality,Calculated 291 (280-300); Potassium 3.6 mEq/L (3.5-5.1); Sodium 138 mEq/L (136-145); eGFR For African Americans > 60 (> 60); eGFR For Non-African Americans 52 (> 60)
[2021-10-12] MEDS: Insulin LISPRO 300 UNITS/3 ML VIAL SUBQ SCH (08:20)
[2021-10-12 08:38] LABS: Basophils % 0.4 %; Eosinophils # 0.1 K/mcL (0.0-0.6); Eosinophils % 1.4 %; Hematocrit 33.8 % (35.3-44.9); Immature Granulocytes % 0.4 % (0-4); Lymphocytes # 1.2 K/mcL (0.6-4.6); Lymphocytes % 15.6 %; Mean Corpuscular Hemoglobin 29.5 pg (28.0-33.3); Mean Corpuscular Volume 92.3 fL (83.0-100.0); Mean Platelet Volume 11.1 fL (9.4-12.4); Monocytes # 0.6 K/mcL (0.0-1.3); Monocytes % 7.8 %; Neutrophils # 5.7 K/mcL (1.6-8.9); Platelet Count 166 K/mcL (140-400); Red Blood Count 3.66 M/mcL (3.82-4.97); Red Cell Distribution Width 14.1 % (11.5-14.5); Segmented Neutrophils % 74.4 %; White Blood Count 7.6 K/mcL (4.3-11.1)
[2021-10-12] MEDS: Isosorbide MONOnitrate (24 HR) 30 MG TAB.ER.24H PO SCH (08:38)
[2021-10-12] MEDS: lisinopriL 20 MG TABLET PO SCH (08:38)
[2021-10-12 08:39] LABS: Hemoglobin 10.8 g/dL (11.5-15.4)
[2021-10-12] MEDS: carvediloL 25 MG TABLET PO SCH (08:39)
[2021-10-12] MEDS: Famotidine 20 MG TABLET PO SCH (08:39)
[2021-10-12] MEDS: Furosemide 20 MG TABLET PO SCH (08:39)
[2021-10-12] MEDS: Aspirin 81 MG TAB.CHEW PO SCH (08:39)
[2021-10-12 11:35] VITALS: BP 147/66; PULSE 72; TEMP 98.1; O2SAT 92
[2021-10-12] MEDS ORDERED: hydrALAZINE 25 MG TABLET PO SCH (15:00)
== END 2021-10-12 12:45 | disposition home or self-care (01) | DRG 246 ==
LOC: 3NENU → 2NNU 10-10 00:31
PROVIDERS: ADMIT Family Medicine; ATTEND Family Medicine

== ENCOUNTER 2022-02-01 18:58 | Inpatient (IN) ==
[2022-02-01 20:06] LABS: Basophils % 0.3 %; Eosinophils # 0.1 K/mcL (0.0-0.6); Eosinophils % 0.7 %; Hematocrit 35.4 % (35.3-44.9); Hemoglobin 11.3 g/dL (11.5-15.4); Immature Granulocytes % 0.6 % (0-4); Lymphocytes # 0.8 K/mcL (0.6-4.6); Lymphocytes % 6.5 %; Mean Corpuscular HGB Conc 31.9 g/dL (31.6-35.5); Mean Corpuscular Hemoglobin 28.5 pg (28.0-33.3); Mean Corpuscular Volume 89.4 fL (83.0-100.0); Mean Platelet Volume 11.1 fL (9.4-12.4); Monocytes # 0.8 K/mcL (0.0-1.3); Monocytes % 6.6 %; Neutrophils # 10.6 K/mcL (1.6-8.9); Platelet Count 172 K/mcL (140-400); Red Blood Count 3.96 M/mcL (3.82-4.97); Red Cell Distribution Width 13.4 % (11.5-14.5); Segmented Neutrophils % 85.3 %; White Blood Count 12.4 K/mcL (4.3-11.1)
[2022-02-01 20:34] LABS: Calcium 8.7 mg/dL (8.6-10.3); Potassium 3.8 mEq/L (3.5-5.1); Troponin I 0.05 ng/mL (< 0.04)
[2022-02-01] MEDS ORDERED: Furosemide 20 MG/2 ML VIAL IVP ONE (21:03)
[2022-02-01] MEDS ORDERED: Ondansetron 4 MG/2 ML VIAL IVP ONE (21:25)
[2022-02-01] MEDS ORDERED: Naloxone 0.4 MG/ML INJ IVP PRN (21:35)
[2022-02-01] MEDS ORDERED: Ondansetron 4 MG/2 ML VIAL IVP PRN (21:35)
[2022-02-02] MEDS ORDERED: Acetaminophen 325 MG TABLET PO PRN (00:39)
[2022-02-02] MEDS ORDERED: Dextrose Gel 15 GM/37.5 ML TUBE PO PRN ×2 (01:23)
[2022-02-02] MEDS ORDERED: D5% in Water 1,000 ML IVC PRN (01:23)
[2022-02-02] MEDS ORDERED: *HR* Dextrose 50 % in Water (Syg) 50 ML SYRINGE IVP PRN (01:23)
[2022-02-02 03:03] LABS: Influenza A PCR Negative (Negative); Influenza B PCR Negative (Negative); Resp. Syncytial Virus PCR Negative (Negative)
[2022-02-02 03:08] LABS: SARS-CoV-2 by PCR (In House) Negative (Negative)
[2022-02-02 04:38] LABS: Hematocrit 33.6 % (35.3-44.9); Hemoglobin 10.7 g/dL (11.5-15.4); Mean Corpuscular HGB Conc 31.8 g/dL (31.6-35.5); Mean Corpuscular Hemoglobin 28.3 pg (28.0-33.3); Mean Corpuscular Volume 88.9 fL (83.0-100.0); Mean Platelet Volume 11.2 fL (9.4-12.4); Platelet Count 152 K/mcL (140-400); Red Blood Count 3.78 M/mcL (3.82-4.97); Red Cell Distribution Width 13.5 % (11.5-14.5)
[2022-02-02 05:00] LABS: Calcium 8.8 mg/dL (8.6-10.3); Potassium 3.3 mEq/L (3.5-5.1)
[2022-02-02] MEDS: Insulin LISPRO 300 UNITS/3 ML VIAL SUBQ SCH ×3 (08:27→16:50)
[2022-02-02] MEDS: Isosorbide MONOnitrate (24 HR) 30 MG TAB.ER.24H PO SCH (08:48)
[2022-02-02] MEDS: carvediloL 25 MG TABLET PO SCH ×2 (08:48→16:51)
[2022-02-02] MEDS ORDERED: Furosemide 20 MG/2 ML VIAL IVP SCH (09:00)
[2022-02-02] MEDS ORDERED: Furosemide 20 MG/2 ML VIAL IVP ONE (09:03)
[2022-02-02] MEDS: Furosemide 40 MG/4 ML VIAL IVP SCH ×2 (11:28→21:40)
[2022-02-02] MEDS: hydrALAZINE 25 MG TABLET PO SCH ×2 (15:55→21:40)
[2022-02-02] MEDS ORDERED: *HR* Rivaroxaban 10 MG TABLET PO SCH (17:00)
[2022-02-02] MEDS ORDERED: Latanoprost 2.5 ML BOTTLE BOTH EYES SCH (21:00)
[2022-02-03 02:44] LABS: Hematocrit 35.7 % (35.3-44.9); Hemoglobin 11.4 g/dL (11.5-15.4); Mean Corpuscular HGB Conc 31.9 g/dL (31.6-35.5); Mean Corpuscular Hemoglobin 28.6 pg (28.0-33.3); Mean Corpuscular Volume 89.7 fL (83.0-100.0); Mean Platelet Volume 11.3 fL (9.4-12.4); Platelet Count 162 K/mcL (140-400); Red Blood Count 3.98 M/mcL (3.82-4.97); Red Cell Distribution Width 13.3 % (11.5-14.5); White Blood Count 7.8 K/mcL (4.3-11.1)
[2022-02-03 02:53] LABS: Calcium 8.7 mg/dL (8.6-10.3); Potassium 3.6 mEq/L (3.5-5.1)
[2022-02-03 07:51] VITALS: TEMP 98.7
[2022-02-03] MEDS ORDERED: lisinopriL 20 MG TABLET PO SCH (09:00)
[2022-02-03] MEDS: Furosemide 40 MG/4 ML VIAL IVP SCH (09:13)
[2022-02-03] MEDS: hydrALAZINE 25 MG TABLET PO SCH (09:13)
[2022-02-03] MEDS: Isosorbide MONOnitrate (24 HR) 30 MG TAB.ER.24H PO SCH (09:14)
[2022-02-03] MEDS: Insulin LISPRO 300 UNITS/3 ML VIAL SUBQ SCH ×2 (09:14→13:34)
[2022-02-03] MEDS: carvediloL 25 MG TABLET PO SCH (09:14)
[2022-02-03 12:19] VITALS: BP 139/74; PULSE 72; O2SAT 95
== END 2022-02-03 15:30 | disposition home or self-care (01) | DRG 280 ==
LOC: EMEROOARM 18:58 → 2ANU 18:58 → SUATTDRO 21:34 → 2ANU 22:57
PROVIDERS: ADMIT Student in an Organized Health Care Education/Training Program; ATTEND Internal Medicine